=== PATIENT | female | born 1980 | race American Indian/Alaskan Native ===

== ENCOUNTER 2016-07-30 16:57 | Emergency (ER) | payer OTHER ==
--- NOTE | 2016-07-30 19:39 | Emergency Department Report ---
Chief Complaint: Headache Stated Complaint: MOUTH PAIN/HEADACHE/BLURRED VISION/PAIN IN RT EAR Time Seen by Provider: 07/30/16 19:34 - HPI History of Present Illness: 35-year-old female comes in for complaint of headache right oral pain headache blurred vision and dizziness 3 days. - Exam Vital Signs: Vital Signs 07/30/16 17:22 Temperature 98.2 F Pulse Rate 88 Respiratory 20 Rate Blood Pressure 122/95 O2 Sat by Pulse 100 Oximetry Physical Exam: Is alert and oriented 3 neuro is intact tongue protrusion intact deviation to the right and left tongue intact Romberg negative or normal, [id number] intact further no shoulders intact gag reflex intact strength equal 4-5 MSE screening note: Focused history and physical exam performed. Due to findings the following was ordered: CBCs BNP urine test ordered patient to be evaluated in the main ER ED Disposition for MSE Condition: Stable
[2016-07-30 20:36] LABS: BUN/Creatinine Ratio 15.71; Blood Urea Nitrogen 11 mg/dL (7-17); Calcium 8.7 mg/dL (8.4-10.2); Carbon Dioxide 28 mmol/L (22-30); Chloride 102.3 mmol/L (98-107); Glucose 72 mg/dL (65-100); Potassium 4.3 mmol/L (3.6-5.0); Sodium 141 mmol/L (137-145)
[2016-07-30 20:39] LABS: Anion Gap 15 mmol/L
[2016-07-30 20:45] LABS: Hematocrit 38.1 % (30.3-42.9); Hemoglobin 12.8 gm/dl (10.1-14.3); Mean Corpuscular HGB Conc 34 % (30-34); Mean Corpuscular Hemoglobin 30 pg (28-32); Mean Corpuscular Volume 88 fl (79-97); Platelet Count 241 K/mm3 (140-440); Red Blood Count 4.34 M/mm3 (3.65-5.03); Red Cell Distribution Width 15.9 % (13.2-15.2); White Blood Count 6.8 K/mm3 (4.5-11.0)
[2016-07-30 21:31] LABS: Eosinophils % (Auto) 8.4 % (0.0-4.3)
[2016-07-30 23:07] LABS: Basophils % (Manual) 0 % (0.0-1.8); Blastocytes % (Manual) 0 %; RBC Morphology Normal
[2016-07-30 23:08] LABS: Diff Status Complete; Platelet Estimate Consistent w Auto
--- NOTE | 2016-07-31 09:00 | Emergency Department Report ---
ED Head Trauma HPI - General Chief complaint: Headache Stated complaint: MOUTH PAIN/HEADACHE/BLURRED VISION/PAIN IN RT EAR Time Seen by Provider: 07/30/16 19:34 Source: patient Mode of arrival: Ambulatory Limitations: No Limitations - Related Data Home Medications Medication Instructions Recorded Confirmed Last Taken No Known Home Medications [No 07/31/16 07/31/16 Unknown Reported Home Medications] Allergies/Adverse reactions: Allergies Allergy/AdvReac Type Severity Reaction Status Date / Time promethazine HCl Allergy Vomiting Verified 06/29/15 23:28 [From Phenergan] ED Review of Systems ROS: Stated complaint: MOUTH PAIN/HEADACHE/BLURRED VISION/PAIN IN RT EAR Other details as noted in HPI ED Past Medical Hx - Past Medical History Previous Medical History?: Yes Hx Asthma: Yes - Surgical History Past Surgical History?: Yes Additional Surgical History: d+c. Fibroid tumor removed. - Social History Smoking Status: Never Smoker Substance Use Type: Non Opiate Pain, Prescribed - Medications Home Medications: Home Medications Medication Instructions Recorded Confirmed Last Taken Type No Known Home Medications [No 07/31/16 07/31/16 Unknown History Reported Home Medications] ED Physical Exam - General Limitations: No Limitations ED Course Vital Signs 07/30/16 07/31/16 07/31/16 17:22 02:45 08:49 Temperature 98.2 F 98.0 F 98.1 F Pulse Rate 88 76 88 Respiratory 20 20 16 Rate Blood Pressure 122/95 Blood Pressure 147/104 133/82 [Right] O2 Sat by Pulse 100 100 99 Oximetry - Lab Data Result diagrams: 07/30/16 20:05 07/30/16 20:05 Lab Results 07/30/16 07/30/16 07/31/16 Range/Units 20:05 20:05 02:06 WBC 6.8 (4.5-11.0) K/mm3 RBC 4.34 (3.65-5.03) M/mm3 Hgb 12.8 (10.1-14.3) gm/dl Hct 38.1 (30.3-42.9) % MCV 88 (79-97) fl MCH 30 (28-32) pg MCHC 34 (30-34) % RDW 15.9 H (13.2-15.2) % Plt Count 241 (140-440) K/mm3 Lymph % (Auto) 37.0 H (13.4-35.0) % [place] % (Auto) 10.1 H (0.0-7.3) % Eos % (Auto) 8.4 H (0.0-4.3) % Baso % (Auto) 1.0 (0.0-1.8) % Lymph # 2.7 (1.2-5.4) K/mm3 [place] # 0.7 (0.0-0.8) K/mm3 Eos # 0.6 H (0.0-0.4) K/mm3 Baso # 0.1 (0.0-0.1) K/mm3 Add Manual Diff Complete Total Counted 100 Seg Neutrophils % 43.5 (40.0-70.0) % Seg Neuts % (Manual) 44.0 (40.0-70.0) % Band Neutrophils % 0 % Lymphocytes % (Manual) 42.0 H (13.4-35.0) % Reactive Lymphs % (Man) 0 % Monocytes % (Manual) 6.0 (0.0-7.3) % Eosinophils % (Manual) 8.0 H (0.0-4.3) % Basophils % (Manual) 0 (0.0-1.8) % Metamyelocytes % 0 % Myelocytes % 0 % Promyelocytes % 0 % Blast Cells % 0 % Nucleated RBC % Not Reportable Seg Neutrophils # 3.1 (1.8-7.7) K/mm3 Seg Neutrophils # Man 3.0 (1.8-7.7) K/mm3 Band Neutrophils # 0.0 K/mm3 Lymphocytes # (Manual) 2.9 (1.2-5.4) K/mm3 Abs React Lymphs (Man) 0.0 K/mm3 Monocytes # (Manual) 0.4 (0.0-0.8) K/mm3 Eosinophils # (Manual) 0.5 H (0.0-0.4) K/mm3 Basophils # (Manual) 0.0 (0.0-0.1) K/mm3 Metamyelocytes # 0.0 K/mm3 Myelocytes # 0.0 K/mm3 Promyelocytes # 0.0 K/mm3 Blast Cells # 0.0 K/mm3 WBC Morphology Not Reportable Hypersegmented Neuts Not Reportable Hyposegmented Neuts Not Reportable Hypogranular Neuts Not Reportable Smudge Cells Not Reportable Toxic Granulation Not Reportable Toxic Vacuolation Not Reportable Dohle Bodies Not Reportable Pelger-Huet Anomaly Not Reportable Evan Rods Not Reportable Platelet Estimate Consistent w auto Clumped Platelets Not Reportable Plt Clumps, EDTA Not Reportable Large Platelets Not Reportable Giant Platelets Not Reportable Platelet Satelliting Not Reportable Plt Morphology Comment Not Reportable RBC Morphology Normal Dimorphic RBCs Not Reportable Polychromasia Not Reportable Hypochromasia Not Reportable Poikilocytosis Not Reportable Anisocytosis Not Reportable Microcytosis Not Reportable Macrocytosis Not Reportable Spherocytes Not Reportable Pappenheimer Bodies Not Reportable Sickle Cells Not Reportable Target Cells Not Reportable Tear Drop Cells Not Reportable Ovalocytes Not Reportable Helmet Cells Not Reportable Almendarez-[place] Bodies Not Reportable [place] Rings Not Reportable Eileen Cells Not Reportable Bite Cells Not Reportable Crenated Cell Not Reportable Elliptocytes Not Reportable Acanthocytes (Spur) Not Reportable Rouleaux Not Reportable Hemoglobin C Crystals Not Reportable Schistocytes Not Reportable Malaria parasites Not Reportable Jace Bodies Not Reportable Hem Pathologist Commnt No Sodium 141 (137-145) mmol/L Potassium 4.3 (3.6-5.0) mmol/L Chloride 102.3 (98-107) mmol/L Carbon Dioxide 28 (22-30) mmol/L Anion Gap 15 mmol/L BUN 11 (7-17) mg/dL Creatinine 0.7 (0.7-1.2) mg/dL Estimated GFR > 60 ml/min BUN/Creatinine Ratio 15.71 % Glucose 72 (65-100) mg/dL Calcium 8.7 (8.4-10.2) mg/dL Urine HCG, Qual Negative (Negative) Critical care attestation.: If time is entered above; I have spent that time in minutes in the direct care of this critically ill patient, excluding procedure time. ED Disposition Condition: Stable
--- NOTE | 2016-07-31 09:56 | Emergency Department Report ---
ED Headache HPI - General Chief Complaint: Headache Stated Complaint: MOUTH PAIN/HEADACHE/BLURRED VISION/PAIN IN RT EAR Time Seen by Provider: 07/30/16 19:34 Source: patient - History of Present Illness Initial Comments: States that she's had a moderate right-sided headache for more than a week. Sometimes she has spots and sometimes nausea. She's had no scintillations no acute change in vision. She's had many similar headaches in the past. She was seen here for headaches at least twice. Her last CT in April 2016 was normal. Oddly she has never followed up with a neurologist through her [facility] plan. Timing/Duration: 1 week Quality: moderate Head Injury Location: frontal, temporal, occipital Recent Head Trauma: frequent headaches, chronic headaches (anxiety any cranial) Associated Symptoms: denies symptoms, other (some spots right visual field scintillations no visual loss) Allergies/Adverse Reactions: Allergies promethazine HCl [From Phenergan] Allergy (Verified 06/29/15 23:28) Vomiting Home Medications: Ambulatory Orders Butalb/Acetaminophen/Caffeine [Fioricet 50-300-40 mg CAP] 1 cap PO Q6HR PRN #20 cap 07/31/16 ED Review of Systems ROS: Stated complaint: MOUTH PAIN/HEADACHE/BLURRED VISION/PAIN IN RT EAR Other details as noted in HPI Constitutional: denies: chills, fever Eyes: denies: eye pain, eye discharge, vision change ENT: other (vague mouth pain at triage. Did not mention this to me.). denies: ear pain, throat pain Respiratory: denies: cough, shortness of breath, wheezing Cardiovascular: denies: chest pain, palpitations Endocrine: no symptoms reported Gastrointestinal: denies: abdominal pain, nausea, diarrhea Genitourinary: denies: urgency, dysuria, discharge Musculoskeletal: denies: back pain, joint swelling, arthralgia Skin: denies: rash, lesions Neurological: headache. denies: weakness, paresthesias Psychiatric: denies: anxiety, depression Hematological/Lymphatic: denies: easy bleeding, easy bruising ED Past Medical Hx - Past Medical History Previous Medical History?: Yes Hx Asthma: Yes - Surgical History Past Surgical History?: Yes Additional Surgical History: d+c. Fibroid tumor removed. - Social History Smoking Status: Never Smoker Substance Use Type: Non Opiate Pain (treated by nursing I am not certain this is accurate), Prescribed - Medications Home Medications: Home Medications Medication Instructions Recorded Confirmed Last Taken Type Butalb/Acetaminophen/Caffeine 1 cap PO Q6HR PRN #20 cap 07/31/16 Unknown Rx [Fioricet 50-300-40 mg CAP] ED Physical Exam - General Limitations: No Limitations General appearance: alert, in no apparent distress - Head Head exam: Present: atraumatic, normocephalic - Eye Eye exam: Present: normal appearance, PERRL, EOMI. Absent: scleral icterus, conjunctival injection, nystagmus, periorbital swelling, periorbital tenderness - ENT ENT exam: Present: mucous membranes moist, other (inspected by nursing no findings noted) - Neck Neck exam: Present: normal inspection - Respiratory Respiratory exam: Present: normal lung sounds bilaterally. Absent: respiratory distress - Cardiovascular Cardiovascular Exam: Present: regular rate, normal rhythm. Absent: systolic murmur, diastolic murmur, rubs, gallop - GI/Abdominal GI/Abdominal exam: Present: soft, normal bowel sounds. Absent: distended, tenderness, guarding, rebound - Extremities Exam Extremities exam: Present: normal inspection - Back Exam Back exam: Present: normal inspection - Neurological Exam Neurological exam: Present: alert, oriented X3, CN II-XII intact, other (feels were equal by confrontation. Cerebellar testing was normal. There is no abnormality of gait noted.). Absent: motor sensory deficit - Psychiatric Psychiatric exam: Present: normal affect, normal mood - Skin Skin exam: Present: warm, dry, intact, normal color. Absent: rash ED Course Vital Signs 07/30/16 07/31/16 07/31/16 17:22 02:45 08:49 Temperature 98.2 F 98.0 F 98.1 F Pulse Rate 88 76 88 Respiratory 20 20 16 Rate Blood Pressure 122/95 Blood Pressure 147/104 133/82 [Right] O2 Sat by Pulse 100 100 99 Oximetry - Reevaluation(s) Reevaluation #1: Is given analgesia. She is encouraged to follow-up with her [facility] and a [facility]. 07/31/16 10:07 ED Medical Decision Making - Lab Data Result diagrams: 07/30/16 20:05 07/30/16 20:05 Laboratory Results - last 24 hr 07/30/16 07/30/16 07/31/16 20:05 20:05 02:06 WBC 6.8 RBC 4.34 Hgb 12.8 Hct 38.1 MCV 88 MCH 30 MCHC 34 RDW 15.9 H Plt Count 241 Lymph % (Auto) 37.0 H [place] % (Auto) 10.1 H Eos % (Auto) 8.4 H Baso % (Auto) 1.0 Lymph # 2.7 [place] # 0.7 Eos # 0.6 H Baso # 0.1 Add Manual Diff Complete Total Counted 100 Seg Neutrophils % 43.5 Seg Neuts % (Manual) 44.0 Band Neutrophils % 0 Lymphocytes % (Manual) 42.0 H Reactive Lymphs % (Man) 0 Monocytes % (Manual) 6.0 Eosinophils % (Manual) 8.0 H Basophils % (Manual) 0 Metamyelocytes % 0 Myelocytes % 0 Promyelocytes % 0 Blast Cells % 0 Nucleated RBC % Not Reportable Seg Neutrophils # 3.1 Seg Neutrophils # Man 3.0 Band Neutrophils # 0.0 Lymphocytes # (Manual) 2.9 Abs React Lymphs (Man) 0.0 Monocytes # (Manual) 0.4 Eosinophils # (Manual) 0.5 H Basophils # (Manual) 0.0 Metamyelocytes # 0.0 Myelocytes # 0.0 Promyelocytes # 0.0 Blast Cells # 0.0 WBC Morphology Not Reportable Hypersegmented Neuts Not Reportable Hyposegmented Neuts Not Reportable Hypogranular Neuts Not Reportable Smudge Cells Not Reportable Toxic Granulation Not Reportable Toxic Vacuolation Not Reportable Dohle Bodies Not Reportable Pelger-Huet Anomaly Not Reportable Evan Rods Not Reportable Platelet Estimate Consistent w auto Clumped Platelets Not Reportable Plt Clumps, EDTA Not Reportable Large Platelets Not Reportable Giant Platelets Not Reportable Platelet Satelliting Not Reportable Plt Morphology Comment Not Reportable RBC Morphology Normal Dimorphic RBCs Not Reportable Polychromasia Not Reportable Hypochromasia Not Reportable Poikilocytosis Not Reportable Anisocytosis Not Reportable Microcytosis Not Reportable Macrocytosis Not Reportable Spherocytes Not Reportable Pappenheimer Bodies Not Reportable Sickle Cells Not Reportable Target Cells Not Reportable Tear Drop Cells Not Reportable Ovalocytes Not Reportable Helmet Cells Not Reportable Almendarez-[place] Bodies Not Reportable [place] Rings Not Reportable Eileen Cells Not Reportable Bite Cells Not Reportable Crenated Cell Not Reportable Elliptocytes Not Reportable Acanthocytes (Spur) Not Reportable Rouleaux Not Reportable Hemoglobin C Crystals Not Reportable Schistocytes Not Reportable Malaria parasites Not Reportable Jace Bodies Not Reportable Hem Pathologist Commnt No Sodium 141 Potassium 4.3 Chloride 102.3 Carbon Dioxide 28 Anion Gap 15 BUN 11 Creatinine 0.7 Estimated GFR > 60 BUN/Creatinine Ratio 15.71 Glucose 72 Calcium 8.7 Urine HCG, Qual Negative Critical care attestation.: If time is entered above; I have spent that time in minutes in the direct care of this critically ill patient, excluding procedure time. ED Disposition Clinical Impression: Cephalalgia Qualifiers: Headache type: unspecified Headache chronicity pattern: acute headache Intractability: not intractable Qualified Code(s): R51 - Headache Disposition: DISCHARGED TO HOME OR SELFCARE Is pt being admited?: No Does the pt Need Aspirin: No Condition: Stable Instructions: Acute Headache (ED), Migraine Headache (ED) Additional Instructions: I would certainly recommend evaluation by a neurologist. They may recommend prophylactic medicine or specific treatment for migraine if they believe this is a migraine type pattern. Return any acute change or problem. Prescriptions: Butalb/Acetaminophen/Caffeine [Fioricet 50-300-40 mg CAP] 1 cap PO Q6HR PRN #20 cap PRN Reason: Headache Referrals: J[facility] [Other] - 24 Hours Time of Disposition: 10:11
[2016-07-31] MEDS ORDERED: MORPHINE IM ONE (10:11)
[2016-07-31] MEDS ORDERED: ZOFRAN ODT PO ONE (10:12)
[2016-07-31 10:57] VITALS: BP 139/81
== END 2016-07-31 10:57 | disposition home or self-care (01) ==
LOC: ED 16:57
DX: R51 Headache (principal); G89.29 Other chronic pain; R11.0 Nausea; J45.909 Unspecified asthma, uncomplicated; Z88.8 Allergy status to other drugs, medicaments and biological substances
CPT/HCPCS: 36415; 80048; 81025; 85007; 85025; 96372; 99283; J2270; Q0162

== ENCOUNTER 2017-01-23 02:38 | Emergency (ER) | payer OTHER ==
[2017-01-23] MEDS ORDERED: TYLENOL PO ONE (02:53)
[2017-01-23] MEDS ORDERED: NORCO 5/325 PO ONE (07:40)
--- NOTE | 2017-01-23 07:40 | Emergency Department Report ---
ED Lower Extremity HPI - General Chief Complaint: Extremity Injury, Lower Stated Complaint: RT KNEE PAIN Time Seen by Provider: 01/23/17 07:20 Source: patient, family Mode of arrival: Ambulatory Limitations: No Limitations - History of Present Illness Initial Comments: Patient here complaining of injury to right knee. She states she was then 6 and she fell and hit her knee at about 1 AM in the morning knee pain is 8 out of 10 and feels achy. Denies any previous injury to knee. Denies any numbness or tingling to extremities. Denies any head injury or back injury Complaint: knee injury (right knee) -: This morning Injury: Knee: Right (pain while Dancing) Type of Injury: other (twisted right knee while [place]) Place: street/outdoors Severity: severe Severity scale (0 -10): 8 Improves With: nothing Context: other (dancing) Associated Symptoms: able to partially bear weight, ambulatory. denies: snap/ pop sensation, swelling, numbness, tingling, unable to bear weight Treatments Prior to Arrival: cold therapy - Related Data Previous Rx's Medication Instructions Recorded Last Taken Type Butalb/Acetaminophen/Caffeine 1 cap PO Q6HR PRN #20 cap 07/31/16 Unknown Rx [Fioricet 50-300-40 mg CAP] traMADol [Ultram] 50 mg PO Q6HR PRN #20 tablet 01/23/17 Unknown Rx Allergies Allergy/AdvReac Type Severity Reaction Status Date / Time promethazine HCl Allergy Vomiting Verified 06/29/15 23:28 [From Phenergan] ED Review of Systems ROS: Stated complaint: RT KNEE PAIN Other details as noted in HPI Comment: All other systems reviewed and negative Constitutional: denies: chills, fever Respiratory: no symptoms reported Cardiovascular: denies: chest pain, palpitations, edema, syncope Gastrointestinal: denies: abdominal pain, nausea, vomiting, diarrhea Musculoskeletal: arthralgia. denies: back pain, joint swelling, myalgia Skin: denies: rash Neurological: denies: headache, weakness, numbness, paresthesias, confusion, abnormal gait, vertigo ED Past Medical Hx - Past Medical History Previous Medical History?: Yes Hx Asthma: Yes - Surgical History Past Surgical History?: Yes Additional Surgical History: d+c. Fibroid tumor removed. - Family History Family history: hypertension - Social History Smoking Status: Never Smoker Substance Use Type: None - Medications Home Medications: Home Medications Medication Instructions Recorded Confirmed Last Taken Type Butalb/Acetaminophen/Caffeine 1 cap PO Q6HR PRN #20 cap 07/31/16 Unknown Rx [Fioricet 50-300-40 mg CAP] traMADol [Ultram] 50 mg PO Q6HR PRN #20 tablet 01/23/17 Unknown Rx ED Physical Exam - General Limitations: No Limitations General appearance: alert, in no apparent distress - Head Head exam: Present: atraumatic, normocephalic, normal inspection - Expanded Head Exam Expanded Head exam: Absent: laceration, abrasion, contusion, hematoma, racoon eyes, carrasco's sign, general tenderness, tenderness of temporal artery, CSF rhinorrhea , CSF otorrhea - Eye Eye exam: Present: normal appearance, PERRL, EOMI. Absent: periorbital swelling , periorbital tenderness Pupils: Present: normal accommodation - ENT ENT exam: Present: normal exam, normal orophraynx - Neck Neck exam: Present: normal inspection, full ROM. Absent: tenderness, meningismus, lymphadenopathy - Respiratory Respiratory exam: Present: normal lung sounds bilaterally. Absent: respiratory distress, chest wall tenderness - Cardiovascular Cardiovascular Exam: Present: regular rate, normal rhythm, normal heart sounds - GI/Abdominal GI/Abdominal exam: Present: soft, normal bowel sounds. Absent: distended, tenderness, guarding, rebound, rigid - Extremities Exam Extremities exam: Present: normal inspection, full ROM - Expanded Lower Extremity Exam Right Hip exam: Present: normal inspection, full ROM, pelvic stability. Absent: tenderness, swelling, abrasion, laceration, ecchymosis, deformity, crepidus, dislocation, erythema, external rotation, internal rotation, shortening Upper Leg exam: Present: normal inspection, full ROM. Absent: tenderness, swelling, abrasion, laceration, ecchymosis, deformity, crepidus, dislocation, erythema Knee exam: Present: normal inspection, full ROM, tenderness, swelling (mild swelling to anterior knee), full knee extension. Absent: abrasion, laceration , ecchymosis, deformity, crepidus, dislocation, erythema, effusion, pain w/ pronation/supination, posterior draw sign, pain/laxity with valgus, pain/laxity with varus Lower Leg exam: Present: normal inspection, full ROM. Absent: tenderness, swelling, abrasion, laceration, ecchymosis, deformity, crepidus, dislocation, erythema, palpable cord, Tammie's sign Ankle exam: Present: normal inspection, full ROM. Absent: tenderness, swelling , abrasion, laceration, ecchymosis, deformity, crepidus, dislocation, erythema, anterior draw sign Foot/Toe exam: Present: normal inspection, full ROM. Absent: tenderness, swelling, abrasion, laceration, ecchymosis, deformity, crepidus, dislocation, erythema, amputation, puncture wound, foreign body, calcaneal tenderness, tenderness at base of 5th metatarsal, nail avulsion, subungual hematoma Neuro vascular tendon exam: Present: no vascular compromise. Absent: pulse deficit, abnormal cap refill, motor deficit, sensory deficit, tendon deficit, extremity cold to touch, pallor, abnormal 2-point discrimination, decreased fine /light touch, foot drop, peroneal nerve deficit, significant pain with passive ROM of distal joint Gait: Positive: observed and limited by pain - Back Exam Back exam: Present: normal inspection, full ROM. Absent: tenderness, CVA tenderness (R), CVA tenderness (L), muscle spasm, paraspinal tenderness, vertebral tenderness, rash noted - Neurological Exam Neurological exam: Present: alert, oriented X3, normal gait, reflexes normal. Absent: motor sensory deficit - Psychiatric Psychiatric exam: Present: normal affect, normal mood - Skin Skin exam: Present: warm, dry, intact, normal color. Absent: rash ED Course Vital Signs 01/23/17 01/23/17 01/23/17 02:47 03:56 06:42 Temperature 98.4 F Pulse Rate 82 86 Respiratory 16 16 16 Rate Blood Pressure 141/93 141/95 O2 Sat by Pulse 96 99 Oximetry 01/23/17 08:01 Temperature Pulse Rate Respiratory 16 Rate Blood Pressure O2 Sat by Pulse Oximetry - Reevaluation(s) Reevaluation #1: 01/23/17 08:38 Patient given [place] 5/325 2 tablets in emergency room to manage knee pain. He was also given Tylenol 650 mg by mouth in triage area. 01/23/17 08:38 - Orthopedic Splinting/Casting Injury #1 Side: right Lower Extremity Injury Location: knee Lower Extremity Immobilizer: Jorge wrap ED Lower Extremity MDM - Radiology Data Radiology results: report reviewed Right knee x-ray revealed no acute fracture or dislocation. - Medical Decision Making ED course: She is status post knee injury with complain of right knee pain after dancing. She received [place] 5/325 2 tablets in emergency room. Prior to [place] she received Tylenol 650 mg in triage area. Patient is stable patient received Jorge wrap to her right knee and to follow-up with orthopedic if her knee pain continues. Discharged home with prescription for Ultram. Critical care attestation.: If time is entered above; I have spent that time in minutes in the direct care of this critically ill patient, excluding procedure time. ED Disposition Clinical Impression: Arthralgia of right knee Strain of right knee Qualifiers: Encounter type: initial encounter Qualified Code(s): S86.911A - Strain of unspecified muscle(s) and tendon(s) at lower leg level, right leg, initial encounter Disposition: TO HOME OR SELFCARE Is pt being admited?: No Does the pt Need Aspirin: No Condition: Stable Instructions: Arthralgia (ED), Knee Pain (ED), Knee Exercises (GEN) Additional Instructions: These follow-up with orthopedic doctor as instructed Take Ultram for pain Rest, ice, compress and elevate affected area. Prescriptions: traMADol [Ultram] 50 mg PO Q6HR PRN #20 tablet PRN Reason: Pain Referrals: SORIN TATUM MD [Staff Physician] - 3-5 Days Forms: Work/School Release Form(ED)
--- NOTE | 2017-01-23 07:58 | XRay Report ---
FINAL REPORT EXAM: XR KNEE 3V RT HISTORY: pt injured right knee TECHNIQUE: Two views of the right knee PRIORS: None. FINDINGS: There is no evidence of acute fracture. There is no evidence of joint dislocation. There is no evidence of joint effusion. There is no significant focal osseous lesions seen. IMPRESSION: There is no acute abnormality identified.
[2017-01-23 09:23] VITALS: BP 122/82
== END 2017-01-23 09:24 | disposition home or self-care (01) ==
LOC: ED 02:38
DX: S86.911A Strain of unspecified muscle(s) and tendon(s) at lower leg level, right leg, initial encounter (principal); J45.909 Unspecified asthma, uncomplicated; Z88.8 Allergy status to other drugs, medicaments and biological substances; W01.198A Fall on same level from slipping, tripping and stumbling with subsequent striking against other object, initial encounter; Y93.41 Activity, dancing; Y92.89 Other specified places as the place of occurrence of the external cause; Y99.8 Other external cause status

== ENCOUNTER 2017-07-03 21:29 | Emergency (ER) | payer OTHER ==
[2017-07-03 22:15] LABS: Basophils % (Auto) 0.6 % (0.0-1.8); Eosinophils % (Auto) 6.7 % (0.0-4.3); Hematocrit 38.8 % (30.3-42.9); Hemoglobin 13.1 gm/dl (10.1-14.3); Mean Corpuscular HGB Conc 34 % (30-34); Mean Corpuscular Hemoglobin 30 pg (28-32); Mean Corpuscular Volume 88 fl (79-97); Platelet Count 276 K/mm3 (140-440); Red Blood Count 4.41 M/mm3 (3.65-5.03); Red Cell Distribution Width 15.9 % (13.2-15.2); White Blood Count 7.4 K/mm3 (4.5-11.0)
[2017-07-03 22:25] LABS: Anion Gap 16 mmol/L; BUN/Creatinine Ratio 20; Blood Urea Nitrogen 12 mg/dL (7-17); Calcium 8.7 mg/dL (8.4-10.2); Carbon Dioxide 25 mmol/L (22-30); Chloride 100.4 mmol/L (98-107); Glucose 102 mg/dL (65-100); Potassium 3.1 mmol/L (3.6-5.0); Sodium 138 mmol/L (137-145)
[2017-07-03] MEDS ORDERED: K-DUR PO ONE (22:35)
[2017-07-03] MEDS ORDERED: MORPHINE IV ONE (22:39)
[2017-07-03] MEDS ORDERED: NACL 0.9% 500 ML 500 ML IV ONE (22:39)
--- NOTE | 2017-07-03 23:04 | Emergency Department Report ---
HPI - General Chief Complaint: Headache Time Seen by Provider: 07/03/17 22:34 - HPI HPI: This is a 36 year-old female presents to the emergency department, dropped off by a friend, with a complaint of a right-sided headache , blurry vision and dizziness has been going on since last night. She tried some Aleve for her discomfort without any relief. She denies any past medical history. She denies any slurred speech, problems with movement or ambulation, chest pain, palpitations or any other neurological deficits. No recent travel or sick contacts at home. She has a primary care physician through [place]. The headache is a sharp pain and travels from that right side to behind her eyes. ED Past Medical Hx - Past Medical History Previous Medical History?: No Hx Asthma: Yes - Surgical History Past Surgical History?: Yes Additional Surgical History: d+c. Fibroid tumor removed. - Social History Smoking Status: Never Smoker - Medications Home Medications: Home Medications Medication Instructions Recorded Confirmed Last Taken Type Butalb/Acetaminophen/Caffeine 1 cap PO Q6HR PRN #20 cap 07/31/16 Unknown Rx [Fioricet 50-300-40 mg CAP] traMADol [Ultram] 50 mg PO Q6HR PRN #20 tablet 01/23/17 Unknown Rx ED Review of Systems ROS: Stated complaint: DIZZINESS,HEADACHE Other details as noted in HPI Comment: All other systems reviewed and negative Constitutional: denies: chills, fever Eyes: vision change. denies: eye pain, eye discharge ENT: denies: ear pain, throat pain Respiratory: denies: cough, shortness of breath, wheezing Cardiovascular: denies: chest pain, palpitations Gastrointestinal: denies: abdominal pain, nausea, diarrhea Genitourinary: denies: urgency, dysuria, discharge Musculoskeletal: denies: back pain, joint swelling, arthralgia Skin: denies: rash, lesions Neurological: headache. denies: numbness, paresthesias Physical Exam - Physical Exam Vital Signs: Vital Signs 07/03/17 07/03/17 21:38 22:34 Temperature 98.2 F 98.3 F Pulse Rate 76 85 Respiratory 20 16 Rate Blood Pressure 135/96 Blood Pressure 143/92 [Left] O2 Sat by Pulse 99 98 Oximetry Physical Exam: GENERAL: The patient is well-developed well-nourished. HENT: Normocephalic. Atraumatic. Patient has moist mucous membranes. EYES: Extraocular motions are intact. Pupils equal reactive to light bilaterally. No nystagmus. NECK: Supple. Trachea is midline. CHEST/LUNGS: Clear to auscultation. There is no respiratory distress noted. HEART/CARDIOVASCULAR: Regular. There is no tachycardia. There is no murmur. ABDOMEN: Abdomen is soft, nontender. Patient has normal bowel sounds. There is no abdominal distention. Obese habitus. SKIN: Skin is warm and dry. NEURO: The patient is awake, alert, and oriented. The patient is cooperative. The patient has no focal neurologic deficits. The patient has normal speech. No pronator drift. No dysmetria. No facial asymmetry. MUSCULOSKELETAL: There is no tenderness or deformity. There is no limitation range of motion. There is no evidence of acute injury. ED Course Vital Signs 07/03/17 07/03/17 21:38 22:34 Temperature 98.2 F 98.3 F Pulse Rate 76 85 Respiratory 20 16 Rate Blood Pressure 135/96 Blood Pressure 143/92 [Left] O2 Sat by Pulse 99 98 Oximetry ED Medical Decision Making - Lab Data Result diagrams: 07/03/17 22:05 07/03/17 22:05 - EKG Data -: EKG Interpreted by Ia EKG shows normal: sinus rhythm, axis, intervals, QRS complexes, ST-T waves Rate: normal - EKG Data When compared to previous EKG there are: previous EKG unavailable Interpretation: normal EKG - Radiology Data Radiology results: report reviewed EXAM: CT HEAD/BRAIN WO CON HISTORY: Headache TECHNIQUE: CT head without contrast PRIORS: None. FINDINGS: No acute intra-axial or extra-axial hemorrhage is identified. There is no evidence of midline shift or mass effect. The ventricles and sulci are within normal limits. Grijalva-white matter differentiation is intact. No acute parenchymal abnormalities seen. Bony calvarium is grossly intact. Visualized portions of the mastoids and paranasal sinuses are unremarkable. IMPRESSION: Negative CT head Transcribed By: ALEAH Dictated By: FERNANDO ORR MD Electronically Authenticated By: FERNANDO ORR MD Signed Date/Time: 07/03/171901 - Medical Decision Making Patient presents with a one-day history of a headache. She complained of some blurry vision but no other obvious neurological deficits. On physical exam she does not have any focal, motor or sensory deficits in her cranial nerves are intact. CT of the head does not show any bleed, shift, mass or any acute process. Vital signs stable throughout her ED course. Labs are unremarkable. EKG does not show any signs of ST elevation [place], ischemia or dysrhythmia. She was given some pain medication and antiemetics and after 2 rounds of this she eventually is sleeping and resting comfortably. She is easily arousable and says that she has greatly improved. The patient has been seen here multiple times for headaches and despite having good [place] insurance, for some reason, does not follow up with neurology despite previous encouragement to do so. She was once again told that she could have some underlying undiagnosed migraines and should follow up neurology. Vital signs stable throughout ED course. At this point she appears safe for discharge home but has been encouraged to return to the ER with any worsening of her symptoms or any acute distress. - Differential Diagnosis migraine headache, cluster headache, brain bleed, dysrhythmia, thyroid dysf Critical Care Time: No Critical care attestation.: If time is entered above; I have spent that time in minutes in the direct care of this critically ill patient, excluding procedure time. ED Disposition Clinical Impression: Dizziness Headache Qualifiers: Headache type: unspecified Headache chronicity pattern: acute headache Intractability: not intractable Qualified Code(s): R51 - Headache Disposition: DC-01 TO HOME OR SELFCARE Is pt being admited?: No Condition: Stable Instructions: Acute Headache (ED) Additional Instructions: Please follow-up with your primary care physician. Please try and get a referral for a [place] neurologist. Return to the emergency Department with any worsening of your symptoms or any acute distress. Referrals: PRIMARY CARE, [Primary Care Provider] - DENISSE Forms: Work/School Release Form(ED) Time of Disposition: 02:58
[2017-07-03 23:10] LABS: Bacteria,Urine 1+ /HPF (Negative); Bilirubin,Urine NEG (Negative); Blood,Urine LG (Negative); Ketones,Urine NEG (Negative); Leukocyte Esterase,Urine NEG (Negative); Mucus,Urine FEW /HPF; Nitrite,Urine NEG (Negative); Protein,Urine <15 mg/dL mg/dL (Negative); Urobilinogen,Urine < 2.0 mg/dL (<2.0)
[2017-07-04] MEDS ORDERED: FIORICET PO ONE (00:29)
[2017-07-04] MEDS ORDERED: REGLAN IV ONE (00:29)
[2017-07-04 03:08] VITALS: BP 119/78
== END 2017-07-04 03:07 | disposition home or self-care (01) ==
LOC: ED 21:29
DX: R42 Dizziness and giddiness (principal); R51 Headache; H53.8 Other visual disturbances
CPT/HCPCS: 36415; 70450; 80048; 81001; 84443; 84484; 84703; 85025; 93005; 93010; 96361; 96374; 96375; 99284; J2270; J2765; J7040

== ENCOUNTER 2017-08-13 15:02 | Emergency (ER) | payer OTHER, MEDICAID ==
[2017-08-13] MEDS ORDERED: ZOFRAN ODT PO ONE (15:14)
[2017-08-13 15:46] LABS: Basophils % (Auto) 0.4 % (0.0-1.8); Eosinophils # (Auto) 0.2 K/mm3 (0.0-0.4); Eosinophils % (Auto) 2.5 % (0.0-4.3); Hematocrit 41.8 % (30.3-42.9); Lymphocytes # (Auto) 1.5 K/mm3 (1.2-5.4); Lymphocytes % (Auto) 22.8 % (13.4-35.0); Mean Corpuscular HGB Conc 33 % (30-34); Mean Corpuscular Hemoglobin 29 pg (28-32); Mean Corpuscular Volume 87 fl (79-97); Monocytes # (Auto) 0.5 K/mm3 (0.0-0.8); Monocytes % (Auto) 7.7 % (0.0-7.3); Platelet Count 296 K/mm3 (140-440); Red Cell Distribution Width 15.8 % (13.2-15.2)
[2017-08-13 16:07] LABS: Alanine Aminotransferase 9 units/L (7-56); Albumin 4.1 g/dL (3.9-5); BUN/Creatinine Ratio 15; Blood Urea Nitrogen 9 mg/dL (7-17); Calcium 8.8 mg/dL (8.4-10.2); Hemolysis Index 3
[2017-08-14 02:13] VITALS: BP 123/91
[2017-08-14 02:47] LABS: Bacteria,Urine 1+ /HPF (Negative); Bilirubin,Urine NEG (Negative); Blood,Urine NEG (Negative); Color,Urine Amber (Yellow); Mucus,Urine 3+ /HPF; Nitrite,Urine NEG (Negative)
[2017-08-14] MEDS ORDERED: MACROBID PO ONE (06:40)
[2017-08-14] MEDS ORDERED: REGLAN IV ONE (06:47)
[2017-08-14] MEDS ORDERED: NACL 0.9% 1000 ML 1,000 ML IV ONE ×2 (06:47→11:17)
--- NOTE | 2017-08-14 06:52 | Emergency Department Report ---
HPI - General Chief Complaint: Nausea/Vomiting/Diarrhea Time Seen by Provider: 08/14/17 06:39 - HPI HPI: This is a 36-year-old Maribel female presents to the emergency department with complaint of a 4 day history of nausea, vomiting and some abdominal discomfort, while about 5 weeks . The patient says that she has a history of hyperemesis gravidarum and during her last she was admitted for almost her entire first trimester. Patient says that she does not currently have an acute CAMPAIGN ADVISOR. She otherwise has a history of previous D&C, fibroid tumor removal and has a history of asthma. She is unable to keep down food or liquid and also has not taken anything for her symptoms. No recent travel or sick contacts at home. She denies any vaginal bleeding, vaginal discharge, diarrhea or constipation, fever, dysuria. She is a [facility] patient. ED Past Medical Hx - Past Medical History Hx Asthma: Yes - Surgical History Additional Surgical History: d+c. Fibroid tumor removed. - Social History Smoking Status: Never Smoker Substance Use Type: None - Medications Home Medications: Home Medications Medication Instructions Recorded Confirmed Last Taken Type Butalb/Acetaminophen/Caffeine 1 cap PO Q6HR PRN #20 cap 07/31/16 Unknown Rx [Fioricet 50-300-40 mg CAP] traMADol [Ultram] 50 mg PO Q6HR PRN #20 tablet 01/23/17 Unknown Rx Ondansetron [Zofran Odt] 4 mg PO Q8HR PRN #12 tab.rapdis 08/14/17 Unknown Rx Vit Calc,Iron,Folic 1 each PO QDAY #30 tablet 08/14/17 Unknown Rx [ Vitamins] ED Review of Systems ROS: Stated complaint: VOMITING BLOOD Other details as noted in HPI Comment: All other systems reviewed and negative Constitutional: denies: chills, fever Eyes: denies: eye pain, eye discharge, vision change ENT: denies: ear pain, throat pain Respiratory: denies: cough, shortness of breath, wheezing Cardiovascular: denies: chest pain, palpitations Gastrointestinal: abdominal pain, nausea, vomiting Genitourinary: denies: urgency, dysuria, discharge Musculoskeletal: denies: back pain, joint swelling, arthralgia Skin: denies: rash, lesions Neurological: denies: headache, weakness, paresthesias Physical Exam - Physical Exam Vital Signs: Vital Signs 08/13/17 08/14/17 08/14/17 15:10 02:12 04:23 Temperature 98.6 F 97.9 F Pulse Rate 100 H 94 H Respiratory 18 16 18 Rate Blood Pressure 115/83 123/91 O2 Sat by Pulse 100 100 Oximetry Physical Exam: GENERAL: The patient is well-developed well-nourished. HENT: Normocephalic. Atraumatic. Patient has moist mucous membranes. EYES: Extraocular motions are intact. Pupils equal reactive to light bilaterally. NECK: Supple. Trachea is midline. CHEST/LUNGS: Clear to auscultation. There is no respiratory distress noted. HEART/CARDIOVASCULAR: Regular. There is no tachycardia. There is no murmur. ABDOMEN: Abdomen is soft, nontender. Patient has normal bowel sounds. There is no abdominal distention. SKIN: Skin is warm and dry. NEURO: The patient is awake, alert, and oriented. The patient is cooperative. The patient has no focal neurologic deficits. The patient has normal speech. MUSCULOSKELETAL: There is no tenderness or deformity. There is no limitation range of motion. There is no evidence of acute injury. ED Course Vital Signs 08/13/17 08/14/17 08/14/17 15:10 02:12 04:23 Temperature 98.6 F 97.9 F Pulse Rate 100 H 94 H Respiratory 18 16 18 Rate Blood Pressure 115/83 123/91 O2 Sat by Pulse 100 100 Oximetry - Consultations Consultation #1: I spoke to an ST[facility] CH[facility]NEY MASON from [place], Dr. King, who listened to the patient's presentation and ED course and feels that the patient should be tried outpatient first before attempting admission and/or transfer. She recommends Zofran ODT and Phenergan per rectum, however the patient is allergic to Phenergan. She feels that the patient should only need to "nibble and sip" food and water and that they will arrange close follow-up for an old CAMPAIGN ADVISOR service for this patient. 08/14/17 14:57 ED Medical Decision Making - Lab Data Result diagrams: 08/13/17 15:22 08/13/17 15:22 - Radiology Data Radiology results: report reviewed PROCEDURE: US OB TRANSVAGINAL TECHNIQUE: Real-time transvaginal sonography of the uterus, placenta, amniotic fluid, adnexa, and fetus was performed with image documentation. Measurements were obtained to determine age/size. M-mode Doppler was used to document heartbeat. CPT 87394 HISTORY: abd pain, preg COMPARISON: No prior studies are available for comparison. FINDINGS: CRL: 3.6mm, which corresponds to a gestational age of: 6weeks, 0 days. Yolk Sac: Normal. Embryonic Cardiac Activity: 117 beats per minute Gestational Sac: Normal. Right Ovary: There are 2 complex cysts in the right ovary measuring 2.4 centimeters and 2.7 centimeters. These could be hemorrhagic cysts. Left Ovary: Normal. Estimated delivery date: 04/09/2018 Comment: Complete anatomic survey at 18-20 weeks suggested. There are multiple uterine fibroids measuring up to 3.3 centimeters. IMPRESSION: 1. Single living intrauterine gestation at approximately 6 weeks 2. EDC by US 04/09/2018. Transcribed By: CO Dictated By: LUZ JULIEN MD Electronically Authenticated By: LUZ JULIEN MD Signed Date/Time: 08/14/17 0334 - Medical Decision Making Patient presents with a four-day history of nausea, vomiting while . Ultrasound shows live intrauterine at 6 weeks. The patient does have a mild UTI and does have some signs of dehydration. She was given 2 L of IV fluid, Zofran and Reglan. Patient was able to keep down some fluids here in a small quantity. The patient starts spitting into a emesis bag, there've been no signs of any actual vomiting since being in the emergency department. She will have close follow-up through [place]. She has been sent home with Miguel Ángel GUTIERREZ and encouraged to return to the emergency department with any intractable vomiting, development of fever, or any acute distress. I forgot to send the patient home with a prescription for her urinary tract infection. It was printed off and left for the patient at the front desk officer and we will call her to let her know to pick this up. - Differential Diagnosis , hyperemesis gravidarum, food poisoning, miscarriage Critical Care Time: No Critical care attestation.: If time is entered above; I have spent that time in minutes in the direct care of this critically ill patient, excluding procedure time. ED Disposition Clinical Impression: Hyperemesis, Dehydration Qualifiers: Weeks of gestation: less than 8 weeks Qualified Code(s): Z3A.01 - Less than 8 weeks gestation of UTI (urinary tract infection) Qualifiers: Urinary tract infection type: acute cystitis Hematuria presence: without hematuria Qualified Code(s): N30.00 - Acute cystitis without hematuria Disposition: TO HOME OR SELFCARE Is pt being admited?: No Condition: Stable Instructions: (ED), Hyperemesis Gravidarum (ED) Additional Instructions: Please follow up with an STONE CHIMNEY MASON in the next few days. Increase her oral rehydration. Return to the emergency department with any worsening of your symptoms, vaginal bleeding, or any acute distress. Prescriptions: Ondansetron [Zofran Odt] 4 mg PO Q8HR PRN #12 tab.rapdis PRN Reason: Nausea Vit Calc,Iron,Folic [ Vitamins] 1 each PO QDAY #30 tablet Referrals: [facility] [Provider Group] - 3-5 Days [facility] [Provider Group] - 3-5 Days Time of Disposition: 12:48
--- NOTE | 2017-08-14 07:37 | Ultrasound Report ---
FINAL REPORT PROCEDURE: US OB TRANSVAGINAL TECHNIQUE: Real-time transvaginal sonography of the uterus, placenta, amniotic fluid, adnexa, and fetus was performed with image documentation. Measurements were obtained to determine age/size. M-mode Doppler was used to document heartbeat. CPT 50842 HISTORY: abd pain, preg COMPARISON: No prior studies are available for comparison. FINDINGS: CRL: 3.6mm, which corresponds to a gestational age of: 6weeks, 0 days. Yolk Sac: Normal. Embryonic Cardiac Activity: 117 beats per minute Gestational Sac: Normal. Right Ovary: There are 2 complex cysts in the right ovary measuring 2.4 centimeters and 2.7 centimeters. These could be hemorrhagic cysts. Left Ovary: Normal. Estimated delivery date: 04/09/2018 Comment: Complete anatomic survey at 18-20 weeks suggested. There are multiple uterine fibroids measuring up to 3.3 centimeters. IMPRESSION: 1. Single living intrauterine gestation at approximately 6 weeks 2. EDC by US 04/09/2018.
--- NOTE | 2017-08-14 07:47 | Ultrasound Report ---
FINAL REPORT PROCEDURE: US LESS THAN 14 WEEKS TECHNIQUE: Real-time transabdominal sonography of the uterus, placenta, amniotic fluid, adnexa, and fetus was performed with image documentation. Measurements were obtained to determine age/size. M-mode Doppler was used to document heartbeat. HISTORY: abd pain, preg COMPARISON: No prior studies are available for comparison. FINDINGS: CRL: 3.6mm, which corresponds to a gestational age of: 6weeks, 0 days. Yolk Sac: Normal. Embryonic Cardiac Activity: 117 beats per minute Gestational Sac: Normal. Right Ovary: There are 2 complex cysts in the right ovary measuring 2.4 centimeters and 2.7 centimeters. These could be hemorrhagic cysts. Left Ovary: Normal. Estimated delivery date: 04/09/2018 Comment: Complete anatomic survey at 18-20 weeks suggested. There are multiple uterine fibroids measuring up to 3.3 centimeters. IMPRESSION: 1. Single living intrauterine gestation at approximately 6 weeks 2. EDC by US 04/09/2018.
[2017-08-14] MEDS ORDERED: ZOFRAN ONE (07:57)
[2017-08-14] MEDS ORDERED: ZOFRAN IV ONE (07:58)
== END 2017-08-14 15:10 | disposition home or self-care (01) ==
LOC: ED 15:02
DX: O21.0 Mild hyperemesis gravidarum (principal); O23.41 Unspecified infection of urinary tract in pregnancy, first trimester; Z3A.01 Less than 8 weeks gestation of pregnancy
CPT/HCPCS: 36415; 76801; 76817; 80053; 81001; 84702; 85025; 96361; 96374; 96375; 99284; J2405; J2765; J7030; Q0162

== ENCOUNTER 2017-08-23 14:26 | Inpatient (IN) | payer OTHER, MEDICAID ==
[2017-08-23] MEDS: D5LR 1,000 ML IV SCH ×3 (16:00→20:30)
[2017-08-23 16:46] LABS: Basophils % (Auto) 0.3 % (0.0-1.8); Eosinophils # (Auto) 0.2 K/mm3 (0.0-0.4); Eosinophils % (Auto) 1.6 % (0.0-4.3); Hematocrit 41.6 % (30.3-42.9); Hemoglobin 14.7 gm/dl (10.1-14.3); Lymphocytes # (Auto) 1.5 K/mm3 (1.2-5.4); Lymphocytes % (Auto) 15.1 % (13.4-35.0); Mean Corpuscular HGB Conc 35 % (30-34); Mean Corpuscular Hemoglobin 30 pg (28-32); Mean Corpuscular Volume 86 fl (79-97); Monocytes # (Auto) 1.2 K/mm3 (0.0-0.8); Monocytes % (Auto) 12.3 % (0.0-7.3); Platelet Count 286 K/mm3 (140-440); Red Blood Count 4.84 M/mm3 (3.65-5.03); Red Cell Distribution Width 16.3 % (13.2-15.2)
[2017-08-23] MEDS: REGLAN IV SCH (17:00)
[2017-08-23] MEDS: TRANSDERM-SCOP TD SCH (17:00)
[2017-08-23 17:04] LABS: BUN/Creatinine Ratio 17; Blood Urea Nitrogen 10 mg/dL (7-17); Calcium 9.4 mg/dL (8.4-10.2); Hemolysis Index 5
[2017-08-23 17:05] LABS: Lipase 24 units/L (13-60)
[2017-08-23 17:20] LABS: Hepatitis A Antibody IgM Non-Reactive (NonReactive); Hepatitis B Core IgM Non-Reactive (NonReactive); Hepatitis B Surface Antigen Non-Reactive (Negative); Hepatitis C Virus Antibody Non-Reactive (NonReactive)
[2017-08-23 17:39] LABS: HCG,Quantitative 82930 mIU/mL (0-4)
[2017-08-23] MEDS ORDERED: KCL 10MEQ/100ML 10 MEQ/100 ML BAG IV SCH ×2 (20:00→21:00)
--- NOTE | 2017-08-23 20:39 | History and Physical Report ---
History of Present Illness Date of examination: 08/23/17 Date of admission: 08/23/17 15:04 History of present illness: 36 yo LMP EDC of 04/09/18 at 7 weeks gestation presented for New OB Visit in office with [facility] reporting 2-3 weeks of severe nausea with persistent vomiting. Voice unable to hold down/tolerate clear liquids or solids with 15lb shaun loss. Also c/o general weakness and malaise. Seen in ER for IV hydration and sent home. Zofran ODT Rxed for attempt outpatient treatment without success. Previous same symptoms with multiple prolonged hospital visits and Reglan pump. Denies vaginal bleeding or history of thyroid disease. 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), myomectomy (2008) Family/Genetic History: diabetes, cancer Social history: no significant social history - Obstetrical History Expected Date of Delivery: 04/09/18 Actual Gestation: 7 Week(s) 2 Day(s) : 5 Para: 2 Hx # Term Pregnancies: 2 Spontaneous Abortions: 2 Number of Living Children: 2 Medications and Allergies Allergies Allergy/AdvReac Type Severity Reaction Status Date / Time promethazine HCl Allergy Vomiting Verified 06/29/15 23:28 [From Phenergan] Home Medications Medication Instructions Recorded Confirmed Last Taken Type Butalb/Acetaminophen/Caffeine 1 cap PO Q6HR PRN #20 cap 07/31/16 Unknown Rx [Fioricet 50-300-40 mg CAP] traMADol [Ultram] 50 mg PO Q6HR PRN #20 tablet 01/23/17 Unknown Rx Nitrofurantoin Monohyd/M-Cryst 100 mg PO BID #14 capsule 08/14/17 Unknown Rx [Macrobid 100 mg Capsule] Ondansetron [Zofran Odt] 4 mg PO Q8HR PRN #12 tab.rapdis 08/14/17 Unknown Rx Vit Calc,Iron,Folic 1 each PO QDAY #30 tablet 08/14/17 Unknown Rx [ Vitamins] Active Meds: Active Medications Dextrose/Lactated Ringer's (D5lr) 1,000 mls @ 500 mls/hr IV DIRECT KINGS Stop: 08/24/17 16:59 Last Admin: 08/23/17 19:08 Dose: 500 mls/hr Dextrose/Lactated Ringer's (D5lr) 1,000 mls @ 150 mls/hr IV DIRECT KINGS Potassium Chloride 20 meq/ (Sodium Chloride) 260 mls @ 130 mls/hr IV ONCE ONE Stop: 08/23/17 23:29 Potassium Chloride (Kcl 10meq/100ml) 10 meq in 100 mls @ 100 mls/hr IV Q1H KINGS Stop: 08/23/17 23:59 Metoclopramide HCl (Reglan) 10 mg IV Q6H KINGS Last Admin: 08/23/17 17:00 Dose: 10 mg Multivitamins/Iron/Calcium ( Vitamin) 1 each PO QDAY KINGS Ondansetron HCl (Zofran) 4 mg IV Q6H PRN PRN Reason: N/V unrelieved by Reglan Scopolamine (Transderm-Scop) [address] [facility] Last Admin: 08/23/17 17:00 Dose: 1 each Review of Systems Constitutional: weight loss, anorexia, fatigue, weakness, malaise, lethargy, poor appetite Eyes: deferred Ears, nose, mouth and throat: deferred Breasts: deferred Gastrointestinal: abdominal pain, nausea, vomiting, loss of appetite Genitourinary: deferred Rectal Exam: deferred Neurological: vertigo, headaches - Vital Signs Vital signs: Vital Signs Temp Pulse Resp BP 98.1 F 97 H 20 112/73 08/23/17 15:15 08/23/17 15:15 08/23/17 15:15 08/23/17 15:15 Temp Pulse Resp BP Pulse Ox 98.1 F 97 H 20 112/73 08/23/17 15:15 08/23/17 15:15 08/23/17 15:15 08/23/17 15:15 - Physical Exam Breasts: Positive: deferred Lungs: Positive: Normal air movement - Obstetrical FHR comments: U/S at [facility] 08/14/17: Single viable IUP at 6 weeks. EDC 04/09/18 Results Result Diagrams: 08/23/17 16:13 08/23/17 16:13 Abnormal lab results 08/23/17 08/23/17 08/23/17 Range/Units 16:13 16:13 16:13 Hgb 14.7 H (10.1-14.3) gm/dl MCHC 35 H (30-34) % RDW 16.3 H (13.2-15.2) % Worth % (Auto) 12.3 H (0.0-7.3) % Worth # 1.2 H (0.0-0.8) K/mm3 Seg Neutrophils % 70.7 H (40.0-70.0) % Sodium (137-145) mmol/L Potassium (3.6-5.0) mmol/L Chloride (98-107) mmol/L Creatinine (0.7-1.2) mg/dL TSH 0.086 L (0.270-4.200) mlU/mL HCG, Quant 42148 H (0-4) mIU/mL 08/23/17 Range/Units 16:13 Hgb (10.1-14.3) gm/dl MCHC (30-34) % RDW (13.2-15.2) % Worth % (Auto) (0.0-7.3) % Worth # (0.0-0.8) K/mm3 Seg Neutrophils % (40.0-70.0) % Sodium 136 L (137-145) mmol/L Potassium 2.6 L* (3.6-5.0) mmol/L Chloride 89.2 L (98-107) mmol/L Creatinine 0.6 L (0.7-1.2) mg/dL TSH (0.270-4.200) mlU/mL HCG, Quant (0-4) mIU/mL All other labs normal. Assessment and Plan A: IUP at 7.2 weeks Hyperemesis Gravidrium Dehydration 15 lb weight loss P: Admission Hydration Antiemetics Alere for Zofran/Reglan pump outpatient
[2017-08-23] MEDS ORDERED: COMPAZINE IV PRN (21:11)
[2017-08-23] MEDS ORDERED: KCL 20 MEQ in NACL 0.9% 250ML 250 ML IV ONE (21:30)
[2017-08-23 21:49] LABS: Bacteria,Urine 1+ /HPF (Negative); Bilirubin,Urine NEG (Negative); Blood,Urine SM (Negative); Color,Urine Amber (Yellow); Mucus,Urine FEW /HPF; Nitrite,Urine NEG (Negative)
[2017-08-23] MEDS: ZOFRAN IV PRN (22:04)
[2017-08-24] MEDS: REGLAN IV SCH ×3 (02:31→23:48)
[2017-08-24] MEDS: NS/KCL 40MEQ 40 MEQ/1,000 ML BAG IV SCH ×3 (06:11→21:16)
[2017-08-24] MEDS ORDERED: NS/KCL 20MEQ 20 MEQ/1,000 ML BAG IV ONE (08:00)
--- NOTE | 2017-08-24 09:05 | Progress Note ---
Assessment and Plan - Patient Problems (1) Hyperemesis gravidarum Current Visit: Yes Status: Acute Plan to address problem: continue supportive care initiate IV hydrocortisone use Subjective - Subjective Date of service: 08/24/17 Interval history: Patient has been unable to tolerate any significant oral intake. Had similar symptoms with her previous that required the use of reglan pump. Labs indicate significant hypokalemia. Currently receiving K+ replacement. Will take 12 hours to complete the supplementation. Patient reports: no new complaints Objective - Vital Signs Vital Signs: Vital Signs - 12hr 08/24/17 08/24/17 08/24/17 00:15 03:40 08:51 Temperature 98.8 F 98.5 F 98.5 F Pulse Rate 94 H 92 H 93 H Respiratory 18 18 Rate Blood Pressure 104/68 117/75 103/57 [Right] O2 Sat by Pulse 98 100 Oximetry - Labs Labs: Abnormal Labs 08/23/17 08/23/17 08/23/17 16:13 16:13 16:13 Hgb 14.7 H MCHC 35 H RDW 16.3 H [place] % (Auto) 12.3 H [place] # 1.2 H Seg Neutrophils % 70.7 H Sodium Potassium Chloride Creatinine TSH 0.086 L HCG, Quant 47328 H Urine WBC (Auto) 08/23/17 08/23/17 16:13 20:45 Hgb MCHC RDW [place] % (Auto) [place] # Seg Neutrophils % Sodium 136 L Potassium 2.6 L* Chloride 89.2 L Creatinine 0.6 L TSH HCG, Quant Urine WBC (Auto) 15.0 H Laboratory Results - last 24 hr 08/23/17 08/23/17 08/23/17 16:13 16:13 16:13 WBC 10.0 RBC 4.84 Hgb 14.7 H Hct 41.6 MCV 86 MCH 30 MCHC 35 H RDW 16.3 H Plt Count 286 Lymph % (Auto) 15.1 [place] % (Auto) 12.3 H Eos % (Auto) 1.6 Baso % (Auto) 0.3 Lymph # 1.5 [place] # 1.2 H Eos # 0.2 Baso # 0.0 Seg Neutrophils % 70.7 H Seg Neutrophils # 7.1 Sodium Potassium Chloride Carbon Dioxide Anion Gap BUN Creatinine Estimated GFR BUN/Creatinine Ratio Glucose Calcium Amylase 40 Lipase 24 TSH 0.086 L HCG, Quant Urine Color Urine Turbidity Urine pH Ur Specific [place] Urine Protein Urine Glucose (UA) Urine Ketones Urine Blood Urine Nitrite Urine Bilirubin Urine Urobilinogen Ur Leukocyte Esterase Urine WBC (Auto) Urine RBC (Auto) U Epithel Cells (Auto) Urine Bacteria (Auto) Urine Mucus Hepatitis A IgM Ab Hep Bs Antigen Hep B Core IgM Ab Hepatitis C Antibody 08/23/17 08/23/17 08/23/17 16:13 16:13 20:45 WBC RBC Hgb Hct MCV MCH MCHC RDW Plt Count Lymph % (Auto) [place] % (Auto) Eos % (Auto) Baso % (Auto) Lymph # [place] # Eos # Baso # Seg Neutrophils % Seg Neutrophils # Sodium 136 L Potassium 2.6 L* Chloride 89.2 L Carbon Dioxide 23 Anion Gap 26 BUN 10 Creatinine 0.6 L Estimated GFR > 60 BUN/Creatinine Ratio 17 Glucose 78 Calcium 9.4 Amylase Lipase TSH HCG, Quant 74520 H Urine Color [place] Urine Turbidity Clear Urine pH 6.0 Ur Specific [place] 1.018 Urine Protein 30 mg/dl Urine Glucose (UA) Neg Urine Ketones 80 Urine Blood Sm Urine Nitrite Neg Urine Bilirubin Neg Urine Urobilinogen 4.0 Ur Leukocyte Esterase Lg Urine WBC (Auto) 15.0 H Urine RBC (Auto) 5.0 U Epithel Cells (Auto) 6.0 Urine Bacteria (Auto) 1+ Urine Mucus Few Hepatitis A IgM Ab Non-reactive Hep Bs Antigen Non-reactive Hep B Core IgM Ab Non-reactive Hepatitis C Antibody Non-reactive
[2017-08-24] MEDS: PRENATAL VITAMIN PO SCH (10:00)
[2017-08-24] MEDS: D5LR 1,000 ML IV SCH (14:30)
[2017-08-24 15:32] LABS: BUN/Creatinine Ratio 12; Blood Urea Nitrogen 6 mg/dL (7-17); Calcium 7.9 mg/dL (8.4-10.2); Hemolysis Index 28
[2017-08-24] MEDS: PEPCID IV SCH (17:00)
[2017-08-24] MEDS ORDERED: KCL 10MEQ/100ML 10 MEQ/100 ML BAG IV SCH ×2 (19:00→20:00)
[2017-08-24] MEDS ORDERED: KCL 20 MEQ in NACL 0.9% 250ML 250 ML IV ONE ×2 (19:30→20:00)
[2017-08-24] MEDS: ZOFRAN IV PRN (19:50)
[2017-08-24] MEDS: VITAMIN B-6 PO SCH (22:08)
[2017-08-25] MEDS: NS/KCL 40MEQ 40 MEQ/1,000 ML BAG IV SCH (01:59)
[2017-08-25] MEDS: PEPCID IV SCH ×2 (05:54→17:00)
[2017-08-25] MEDS: REGLAN IV SCH ×3 (06:25→19:05)
[2017-08-25] MEDS ORDERED: D5LR 1,000 ML IV SCH (07:00)
--- NOTE | 2017-08-25 08:26 | Progress Note ---
Assessment and Plan A: IUP at 7 wks, Hyperemesis, Morbid Obesity P: Thyroid panel Replete potassium as needed Closely monitor clinical status Subjective - Subjective Date of service: 08/25/17 Principal diagnosis: 1) IUP at 7w4d 2) Hyperemesis 3) Morbid Obesity Interval history: Pt still unable to tolerate oral intake. Patient reports: no new complaints Objective - Vital Signs Vital Signs: Vital Signs - 12hr 08/24/17 08/25/17 08/25/17 20:35 01:05 04:30 Temperature 98.3 F 98.2 F 98.3 F Pulse Rate 87 79 81 Respiratory 18 18 18 Rate Blood Pressure 116/72 91/53 109/62 [Right] O2 Sat by Pulse 96 99 100 Oximetry - Exam Breasts: deferred Cardiovascular: Regular rate Lungs: Clear to auscultation Abdomen: Present: soft (obese ) Extremities: normal - Labs Labs: Abnormal Labs 08/23/17 08/23/17 08/23/17 16:13 16:13 16:13 Hgb 14.7 H MCHC 35 H RDW 16.3 H [place] % (Auto) 12.3 H [place] # 1.2 H Seg Neutrophils % 70.7 H Sodium Potassium Chloride BUN Creatinine Calcium TSH 0.086 L HCG, Quant 37157 H Urine WBC (Auto) 08/23/17 08/23/17 08/24/17 16:13 20:45 14:50 Hgb MCHC RDW [place] % (Auto) [place] # Seg Neutrophils % Sodium 136 L Potassium 2.6 L* 3.3 L D Chloride 89.2 L BUN 6 L Creatinine 0.6 L 0.5 L Calcium 7.9 L D TSH HCG, Quant Urine WBC (Auto) 15.0 H Laboratory Results - last 24 hr 08/24/17 14:50 Sodium 139 Potassium 3.3 L D Chloride 105.3 Carbon Dioxide 25 Anion Gap 12 BUN 6 L Creatinine 0.5 L Estimated GFR > 60 BUN/Creatinine Ratio 12 Glucose 100 Calcium 7.9 L D
[2017-08-25 09:06] LABS: BUN/Creatinine Ratio 10; Blood Urea Nitrogen 3 mg/dL (7-17); Calcium 6.2 mg/dL (8.4-10.2); Hemolysis Index 4
[2017-08-25 09:32] LABS: Free T4 (Free Thyroxine) 2.08 ng/dL (0.76-1.46)
[2017-08-25] MEDS: ZOFRAN IV PRN (09:34)
[2017-08-25] MEDS: VITAMIN B-6 PO SCH ×3 (09:37→20:11)
[2017-08-25] MEDS: PRENATAL VITAMIN PO SCH (09:38)
[2017-08-25] MEDS ORDERED: KCL 10MEQ/100ML 10 MEQ/100 ML BAG IV SCH ×2 (14:00→23:45)
[2017-08-25] MEDS: KCL 10 MEQ in NACL 0.9% 100 ML IV SCH ×4 (16:00→19:07)
[2017-08-25] MEDS: PROPYLTHIOURACIL PO SCH (22:20)
[2017-08-26] MEDS: KCL 10 MEQ in NACL 0.9% 100 ML IV SCH ×4 (00:37→04:47)
[2017-08-26] MEDS: REGLAN IV SCH ×4 (01:10→22:42)
[2017-08-26] MEDS: PROPYLTHIOURACIL PO SCH ×3 (03:00→22:00)
[2017-08-26] MEDS: PEPCID IV SCH ×3 (04:47→22:41)
[2017-08-26] MEDS: ZOFRAN IV PRN ×2 (08:12→17:02)
--- NOTE | 2017-08-26 08:47 | Progress Note ---
Assessment and Plan O: VSS AF AM K+: 2.9 A: IUP at 7 weeks Hyperemesis Hypokalemia Hyperthyroid P: MD consult Subjective - Subjective Date of service: 08/26/17 Principal diagnosis: 1) IUP at 7w4d 2) Hyperemesis 3) Morbid Obesity Interval history: 36 yo LMP EDC of 04/09/18 at 7 weeks gestation presented for New OB Visit in office with [place] [facility] [employer] reporting 2-3 weeks of severe nausea with persistent vomiting. Voice unable to hold down/tolerate clear liquids or solids with 15lb shaun loss. Also c/o general weakness and malaise. Seen in ER for IV hydration and sent home. Zofran ODT Rxed for attempt outpatient treatment without success. Previous same symptoms with multiple prolonged hospital visits and Reglan pump. Denies vaginal bleeding or history of thyroid disease. Patient reports: no new complaints (continued nausea. Tolerating small amount of solids) Objective - Vital Signs Vital Signs: Vital Signs - 12hr 08/25/17 08/26/17 23:45 04:35 Temperature 98.2 F 98.4 F Pulse Rate 79 76 Respiratory 20 20 Rate Blood Pressure 125/79 135/83 [Right] O2 Sat by Pulse 98 98 Oximetry - Exam Breasts: deferred Abdomen: Present: normal appearance, soft. Absent: distention, tenderness - Labs Labs: Abnormal Labs 08/23/17 08/23/17 08/23/17 16:13 16:13 16:13 Hgb 14.7 H MCHC 35 H RDW 16.3 H [place] % (Auto) 12.3 H [place] # 1.2 H Seg Neutrophils % 70.7 H Sodium Potassium Chloride Carbon Dioxide BUN Creatinine Glucose Calcium TSH 0.086 L Free T4 HCG, Quant 17700 H Urine WBC (Auto) 08/23/17 08/23/17 08/24/17 16:13 20:45 14:50 Hgb MCHC RDW [place] % (Auto) [place] # Seg Neutrophils % Sodium 136 L Potassium 2.6 L* 3.3 L D Chloride 89.2 L Carbon Dioxide BUN 6 L Creatinine 0.6 L 0.5 L Glucose Calcium 7.9 L D TSH Free T4 HCG, Quant Urine WBC (Auto) 15.0 H 08/25/17 08/25/17 08/25/17 08:35 08:35 12:33 Hgb MCHC RDW [place] % (Auto) [place] # Seg Neutrophils % Sodium Potassium 2.4 L* D 2.8 L* Chloride 110.9 H Carbon Dioxide 18 L D BUN 3 L Creatinine 0.3 L Glucose 136 H Calcium 6.2 L D TSH 0.063 L Free T4 2.08 H HCG, Quant Urine WBC (Auto) 08/25/17 08/25/17 08/26/17 16:40 22:41 07:02 Hgb MCHC RDW [place] % (Auto) [place] # Seg Neutrophils % Sodium Potassium 3.0 L 2.9 L* 2.9 L* Chloride Carbon Dioxide BUN Creatinine Glucose Calcium TSH Free T4 HCG, Quant Urine WBC (Auto) Laboratory Results - last 24 hr 08/25/17 08/25/17 08/25/17 08:35 08:35 12:33 Sodium 143 Potassium 2.4 L* D 2.8 L* Chloride 110.9 H Carbon Dioxide 18 L D Anion Gap 17 BUN 3 L Creatinine 0.3 L Estimated GFR > 60 BUN/Creatinine Ratio 10 Glucose 136 H Calcium 6.2 L D TSH 0.063 L Free T4 2.08 H 08/25/17 08/25/17 08/26/17 16:40 22:41 07:02 Sodium Potassium 3.0 L 2.9 L* 2.9 L* Chloride Carbon Dioxide Anion Gap BUN Creatinine Estimated GFR BUN/Creatinine Ratio Glucose Calcium TSH Free T4
[2017-08-26] MEDS: VITAMIN B-6 PO SCH ×2 (10:27→20:00)
[2017-08-26] MEDS: PRENATAL VITAMIN PO SCH (10:28)
[2017-08-26] MEDS ORDERED: KCL 40 MEQ in NACL 0.45% 1000 ML 1,000 ML IV SCH (11:30)
[2017-08-26] MEDS ORDERED: K-DUR PO NR (13:00)
[2017-08-26] MEDS ORDERED: MAGNESIUM SULFATE 3 GM in NACL 0.9% 100 ML IV ONE (16:42)
--- NOTE | 2017-08-26 16:43 | Consultation ---
History of Present Illness - Reason for Consult Consult date: 08/26/17 hypokalemia Requesting physician: RANI CORONEL - History of Present Illness 36F with IUP, 7 weeks who presents with hyperemesis, states that she is no longer vomiting today and that she tolerated a sandwich for lunch and kept it down. Past History Past Medical History: No medical history Past Surgical History: No surgical history Social history: no significant social history Family history: hypertension Medications and Allergies Allergies Allergy/AdvReac Type Severity Reaction Status Date / Time promethazine HCl Allergy Vomiting Verified 06/29/15 23:28 [From Phenergan] Home Medications Medication Instructions Recorded Confirmed Last Taken Type Butalb/Acetaminophen/Caffeine 1 cap PO Q6HR PRN #20 cap 07/31/16 08/23/17 Unknown Rx [Fioricet 50-300-40 mg CAP] traMADol [Ultram] 50 mg PO Q6HR PRN #20 tablet 01/23/17 08/23/17 Unknown Rx Nitrofurantoin Monohyd/M-Cryst 100 mg PO BID #14 capsule 08/14/17 08/23/17 Unknown Rx [Macrobid 100 mg Capsule] Ondansetron [Zofran Odt] 4 mg PO Q8HR PRN #12 tab.rapdis 08/14/17 08/23/17 Unknown Rx Vit Calc,Iron,Folic 1 each PO QDAY #30 tablet 08/14/17 08/23/17 Unknown Rx [ Vitamins] Active Meds: Active Medications Famotidine (Pepcid) [address] [facility] Last Admin: 08/26/17 10:15 Dose: 20 mg Hydrocortisone Sodium Succinate (Solu-Cortef) [address] [facility] Last Admin: 08/26/17 10:15 Dose: 100 mg Potassium Chloride 40 meq/ (Sodium Chloride) 1,020 mls @ 125 mls/hr IV [facility] Metoclopramide HCl (Reglan) [address] [facility] Last Admin: 08/26/17 10:15 Dose: 10 mg Multivitamins/Iron/Calcium ( Vitamin) [address] [facility] Last Admin: 08/26/17 10:28 Dose: Not Given Ondansetron HCl (Zofran) 4 mg IV Q6H PRN PRN Reason: N/V unrelieved by Reglan Last Admin: 08/26/17 08:12 Dose: 4 mg Prochlorperazine Edisylate (Compazine) 5 mg IV Q6H PRN PRN Reason: Nausea And Vomiting Last Admin: 08/24/17 06:11 Dose: 5 mg Propylthiouracil (Propylthiouracil) [address] [facility] Last Admin: 08/26/17 10:28 Dose: Not Given Pyridoxine HCl (Vitamin B-6) [address] [facility] Last Admin: 08/26/17 10:27 Dose: Not Given Scopolamine (Transderm-Scop) [address] [facility] Last Admin: 08/23/17 17:00 Dose: 1 each Review of Systems All systems: negative (14 point ros is otherwise neg except as stated) Constitutional: no fever Cardiovascular: no chest pain Respiratory: no shortness of breath Gastrointestinal: nausea, vomiting, no diarrhea Exam - Constitutional Vitals: Temp Pulse Resp BP Pulse Ox 98.1 F 80 20 117/76 97 08/26/17 12:23 08/26/17 12:23 08/26/17 12:23 08/26/17 12:23 08/26/17 12:23 General appearance: Present: no acute distress, well-nourished - EENT Eyes: Present: PERRL ENT: hearing intact, clear oral mucosa - Neck Neck: Present: supple, normal ROM - Respiratory Respiratory effort: normal Respiratory: bilateral: CTA - Cardiovascular Heart Sounds: Present: S1 & S2. Absent: rub, click - Extremities Extremities: pulses symmetrical, No edema Peripheral Pulses: within normal limits - Abdominal General gastrointestinal: Present: soft, non-tender, non-distended, normal bowel sounds Female genitourinary: Present: normal - Integumentary Integumentary: Present: clear, warm, dry - Musculoskeletal Musculoskeletal: gait normal, strength equal bilaterally - Psychiatric Psychiatric: appropriate mood/affect, intact judgment & insight - Neurologic Neurologic: CNII-XII intact, moves all extremities Results - Labs CBC & Chem 7: 08/23/17 16:13 08/26/17 07:02 Labs: Abnormal lab results 08/25/17 08/25/17 08/26/17 Range/Units 16:40 22:41 07:02 Potassium 3.0 L 2.9 L* 2.9 L* (3.6-5.0) mmol/L Magnesium (1.7-2.3) mg/dL 08/26/17 Range/Units 12:21 Potassium (3.6-5.0) mmol/L Magnesium 1.50 L (1.7-2.3) mg/dL Assessment and Plan 36F with IUP, 7 weeks who pw hyperemesis gravidum hyperemesis gravidum -continue anti-emetics, she is improving Hypokalemia/hypomagnesemia -replete IV, recheck levels in am DVT ppx per primary team
[2017-08-26] MEDS: TRANSDERM-SCOP TD SCH (22:42)
[2017-08-27] MEDS ORDERED: D5LR 1,000 ML IV SCH (01:00)
[2017-08-27 04:00] LABS: BUN/Creatinine Ratio 5; Blood Urea Nitrogen 2 mg/dL (7-17); Calcium 7.8 mg/dL (8.4-10.2); Hemolysis Index 1
[2017-08-27] MEDS: REGLAN IV SCH ×4 (05:39→23:54)
[2017-08-27] MEDS ORDERED: KCL 40 MEQ in NACL 0.45% 1000 ML 1,000 ML IV SCH (07:07)
[2017-08-27] MEDS: VITAMIN B-6 PO SCH ×4 (08:00→20:00)
[2017-08-27] MEDS: PROPYLTHIOURACIL PO SCH ×2 (09:37→22:00)
[2017-08-27] MEDS: PEPCID IV SCH ×2 (09:41→23:54)
[2017-08-27] MEDS: PRENATAL VITAMIN PO SCH (09:41)
[2017-08-27] MEDS: K-DUR PO SCH ×2 (10:00→22:37)
--- NOTE | 2017-08-27 13:39 | Consultation ---
History of Present Illness - Reason for Consult Consult date: 08/27/17 hypokalemia Requesting physician: RANI CORONEL - History of Present Illness This is a 36 y/o female with no significant PMH who is 7 weeks who presented to [facility] with c/o worsening nausea, nausea unable to tolerate food/ fluid intake, intermittent abdominal pain (more so prior to admission), 15 pound weight loss, and fatigue for about 3 weeks. Patient reports no improvement in her symptoms so she came to [facility] for further workup. Patient denies chest pain, shortness of breath, headache, dysuria, diarrhea, constipation, black or bloody stools. Patient found to have hypokalemia on admission, receiving potassium repletion, but minimal improvement in hypokalemia thus far. We were consulted to evaluate this patient who has hypokalemia. Patient reports she was able to keep down her lunch today (chicken pot pie) and her medications. Past History Past Medical History: No medical history Past Surgical History: No surgical history Social history: no significant social history Family history: hypertension Medications and Allergies Allergies Allergy/AdvReac Type Severity Reaction Status Date / Time promethazine HCl Allergy Vomiting Verified 06/29/15 23:28 [From Phenergan] Home Medications Medication Instructions Recorded Confirmed Last Taken Type Butalb/Acetaminophen/Caffeine 1 cap PO Q6HR PRN #20 cap 07/31/16 08/23/17 Unknown Rx [Fioricet 50-300-40 mg CAP] traMADol [Ultram] 50 mg PO Q6HR PRN #20 tablet 01/23/17 08/23/17 Unknown Rx Nitrofurantoin Monohyd/M-Cryst 100 mg PO BID #14 capsule 08/14/17 08/23/17 Unknown Rx [Macrobid 100 mg Capsule] Ondansetron [Zofran Odt] 4 mg PO Q8HR PRN #12 tab.rapdis 08/14/17 08/23/17 Unknown Rx Vit Calc,Iron,Folic 1 each PO QDAY #30 tablet 08/14/17 08/23/17 Unknown Rx [ Vitamins] Active Meds: Active Medications Famotidine (Pepcid) 20 mg IV BID [facility] Last Admin: 08/27/17 09:41 Dose: 20 mg Hydrocortisone Sodium Succinate (Solu-Cortef) 100 mg IV Q8H [facility] Last Admin: 08/27/17 09:36 Dose: 100 mg Dextrose/Lactated Ringer's (D5lr) 1,000 mls @ 125 mls/hr IV [facility] Last Admin: 08/27/17 01:16 Dose: 125 mls/hr Potassium Chloride 40 meq/ (Sodium Chloride) 1,020 mls @ 125 mls/hr IV [facility] Last Admin: 08/27/17 09:47 Dose: 125 mls/hr Metoclopramide HCl (Reglan) 10 mg IV Q6H [facility] Last Admin: 08/27/17 05:39 Dose: 10 mg Multivitamins/Iron/Calcium ( Vitamin) 1 each PO QDAY [facility] Last Admin: 08/27/17 09:41 Dose: Not Given Ondansetron HCl (Zofran) 4 mg IV Q6H PRN PRN Reason: N/V unrelieved by Reglan Last Admin: 08/26/17 17:02 Dose: 4 mg Potassium Chloride (K-Dur) 40 meq PO BID [facility] Last Admin: 08/27/17 10:00 Dose: 20 meq Prochlorperazine Edisylate (Compazine) 5 mg IV Q6H PRN PRN Reason: Nausea And Vomiting Last Admin: 08/24/17 06:11 Dose: 5 mg Propylthiouracil (Propylthiouracil) 50 mg PO BID [facility] Last Admin: 08/27/17 09:37 Dose: 50 mg Pyridoxine HCl (Vitamin B-6) 25 mg PO TID [facility] Last Admin: 08/27/17 09:32 Dose: 25 mg Scopolamine (Transderm-Scop) 1 each TD Q3D [facility] Last Admin: 08/26/17 22:42 Dose: 1 each Review of Systems Constitutional: fatigue, weakness, no fever, no chills Ears, nose, mouth and throat: no headache Cardiovascular: no chest pain, no shortness of breath, no dyspnea on exertion Respiratory: no cough with sputum, no shortness of breath, no dyspnea on exertion Gastrointestinal: abdominal pain, nausea, vomiting, no diarrhea, no constipation , no melena Genitourinary Female: no dysuria Musculoskeletal: no arm numbness/tingling, no leg numbness/tingling Integumentary: no sores, no wounds Neurological: no numbness, no tingling, no headaches Psychiatric: no anxiety, no depression Endocrine: fatigue Exam - Vital Signs Vital signs: Vital Signs Temp Pulse Resp BP 98.1 F 97 H 20 112/73 08/23/17 15:15 08/23/17 15:15 08/23/17 15:15 08/23/17 15:15 - General Appearance General appearance: well-developed (no acute distress, sitting up in the chair) EENT: ATNC Neck: Present: neck supple Respiratory: Clear to Ascultation Heart: regular, S1S2 Gastrointestinal: Present: normoactive bowel sounds. Absent: tenderness Integumentary: warm and dry Neurologic: alert and oriented x3 Musculoskeletal: Present: other (no edema to both lower extremities) Psychiatric: mood/affect appropriate, cooperative Results - Lab Results 08/23/17 16:13 08/27/17 03:00 Most recent lab results Calcium 7.8 mg/dL (8.4-10.2) L D 08/27/17 03:00 Magnesium 1.90 mg/dL (1.7-2.3) 08/27/17 10:13 Assessment and Plan - Patient Problems (1) Hyperemesis gravidarum Current Visit: Yes Status: Acute Plan to address problem: CIRCULATION ANALYST on board, on reglan, zofran, compazine, GI soft diet, IV fluids Follow up recs (2) Hypokalemia Current Visit: Yes Status: Acute Plan to address problem: Hypokalemia possibly multifactorial secondary to inadequate dietary potassium oral intake worsened in setting of persistent vomiting, hypomagnesemia, and metabolic alkalosis Follow up urine studies to evaluate if renal loss is a contributing factor toward hypokalemia etiology Serum potassium level was 2.6 today, yesterday's serum potassium level was 2.9 On admission (08/23/18), serum potassium level was 2.9, highest serum potassium level thus far this hospitalization was 3.3 on Started on potassium chloride 40 mEq orally twice a day Agree with switching from D5 LR infusion to current 0.45% NS + 40 mEq KCl infusion at 125 ml/hr Replete magnesium Urine potassium and urine creatinine pending Repeat BMP today at 1800 ABG reviewed consistent with metabolic alkalosis Follow up repeat labs, urine studies, and adjust renal management depending on lab/clinical findings Renal plan discussed with Dr Hilliard Continue supportive therapy (3) Dehydration Current Visit: No Status: Acute Plan to address problem: Continue on IV fluids (4) Current Visit: No Status: Acute Qualifiers: Weeks of gestation: less than 8 weeks Qualified Code(s): Z3A.01 - Less than 8 weeks gestation of Plan to address problem: As per CIRCULATION ANALYST
[2017-08-27] MEDS ORDERED: KCL 10MEQ/100ML 10 MEQ/100 ML BAG IV SCH ×2 (14:00→22:00)
[2017-08-27] MEDS ORDERED: MAGNESIUM SULFATE 1 GM in NACL 0.9% 50 ML IV ONE (14:30)
--- NOTE | 2017-08-27 14:51 | Progress Note ---
Subjective - Subjective Principal diagnosis: 1) IUP at 7w4d 2) Hyperemesis 3) Morbid Obesity Interval history: Pt still unable to tolerate oral intake. Objective - Vital Signs Latest vital signs: Vital Signs Temp Pulse Resp BP Pulse Ox 08/27/17 12:50 98.5 F 91 H 18 112/64 91 08/27/17 08:00 18 08/27/17 07:55 98.6 F 73 18 113/61 08/27/17 04:05 98.8 F 92 H 18 115/61 08/27/17 00:00 98.7 F 78 18 114/74 08/26/17 20:10 99.1 F 89 18 109/66 08/26/17 16:45 98.1 F 92 H 18 139/86 97 Intake and Output 08/26/17 08/27/17 08/27/17 22:59 06:59 14:59 Intake Total 120 480 Output Total 575 450 Balance 120 -575 30 Intake: Oral 120 480 Output: Urine 575 450 Indwelling Catheter 575 450 Other: Total, Intake Amount 120 480 Total, Output Amount 575 450 Voiding Method Toilet Toilet # Voids Void 1 1 - Labs Labs: Abnormal lab results 08/27/17 08/27/17 Range/Units 03:00 11:17 POC ABG pH 7.525 H (7.35-7.45) Potassium 2.6 L* (3.6-5.0) mmol/L BUN 2 L (7-17) mg/dL Creatinine 0.4 L (0.7-1.2) mg/dL Glucose 142 H (65-100) mg/dL Calcium 7.8 L D (8.4-10.2) mg/dL
[2017-08-27] MEDS ORDERED: KCL 40 MEQ in NACL 0.9% 500 ML 500 ML IV ONE ×2 (15:00→22:00)
[2017-08-27 18:56] LABS: Creatinine,Urine 55.4 mg/dL (0.1-20.0); Potassium, Urine 27.6 mmol/L
[2017-08-27 19:10] LABS: BUN/Creatinine Ratio 8; Blood Urea Nitrogen 4 mg/dL (7-17); Calcium 7.7 mg/dL (8.4-10.2); Hemolysis Index 15
--- NOTE | 2017-08-27 21:39 | Progress Note ---
Assessment and Plan A: IUP at 7 wks, Hyperemesis, Persistent Hypokalemia Morbid Obesity P: Medicine consult appreciated Nephrology consult Subjective - Subjective Date of service: 08/27/17 Principal diagnosis: 1) IUP at 7w4d 2) Hyperemesis 3) Morbid Obesity Interval history: Tolerating some PO intake (solid and liquid) but remains hypokalemic despite repletion Patient reports: no new complaints (continued nausea. Tolerating small amount of solids), no loss of fluid, no vaginal bleeding, no contractions Objective - Vital Signs Vital Signs: Vital Signs - 12hr 08/27/17 08/27/17 08/27/17 12:50 16:00 20:25 Temperature 98.5 F 97.7 F Pulse Rate 91 H 71 66 Respiratory 18 18 Rate Blood Pressure 112/64 139/87 [Right] O2 Sat by Pulse 91 99 99 Oximetry 08/27/17 21:22 Temperature 98.4 F Pulse Rate 71 Respiratory 20 Rate Blood Pressure 104/51 [Right] O2 Sat by Pulse 99 Oximetry - Exam Breasts: deferred Cardiovascular: Regular rate Lungs: Clear to auscultation Abdomen: Present: soft (obese ) Extremities: normal - Labs Labs: Abnormal Labs 08/23/17 08/23/17 08/23/17 16:13 16:13 16:13 Hgb 14.7 H MCHC 35 H RDW 16.3 H [place] % (Auto) 12.3 H [place] # 1.2 H Seg Neutrophils % 70.7 H POC ABG pH Sodium Potassium Chloride Carbon Dioxide BUN Creatinine Glucose Calcium Phosphorus Magnesium TSH 0.086 L Free T4 HCG, Quant 63798 H Urine WBC (Auto) Urine Creatinine 08/23/17 08/23/17 08/24/17 16:13 20:45 14:50 Hgb MCHC RDW [place] % (Auto) [place] # Seg Neutrophils % POC ABG pH Sodium 136 L Potassium 2.6 L* 3.3 L D Chloride 89.2 L Carbon Dioxide BUN 6 L Creatinine 0.6 L 0.5 L Glucose Calcium 7.9 L D Phosphorus Magnesium TSH Free T4 HCG, Quant Urine WBC (Auto) 15.0 H Urine Creatinine 08/25/17 08/25/17 08/25/17 08:35 08:35 12:33 Hgb MCHC RDW [place] % (Auto) [place] # Seg Neutrophils % POC ABG pH Sodium Potassium 2.4 L* D 2.8 L* Chloride 110.9 H Carbon Dioxide 18 L D BUN 3 L Creatinine 0.3 L Glucose 136 H Calcium 6.2 L D Phosphorus Magnesium TSH 0.063 L Free T4 2.08 H HCG, Quant Urine WBC (Auto) Urine Creatinine 08/25/17 08/25/17 08/26/17 16:40 22:41 07:02 Hgb MCHC RDW [place] % (Auto) [place] # Seg Neutrophils % POC ABG pH Sodium Potassium 3.0 L 2.9 L* 2.9 L* Chloride Carbon Dioxide BUN Creatinine Glucose Calcium Phosphorus Magnesium TSH Free T4 HCG, Quant Urine WBC (Auto) Urine Creatinine 08/26/17 08/27/17 08/27/17 12:21 03:00 11:17 Hgb MCHC RDW [place] % (Auto) [place] # Seg Neutrophils % POC ABG pH 7.525 H Sodium Potassium 2.6 L* Chloride Carbon Dioxide BUN 2 L Creatinine 0.4 L Glucose 142 H Calcium 7.8 L D Phosphorus Magnesium 1.50 L TSH Free T4 HCG, Quant Urine WBC (Auto) Urine Creatinine 08/27/17 08/27/17 08/27/17 18:35 18:38 20:56 Hgb MCHC RDW [place] % (Auto) [place] # Seg Neutrophils % POC ABG pH Sodium Potassium 2.4 L* 2.8 L* Chloride Carbon Dioxide BUN 4 L Creatinine 0.5 L Glucose 149 H Calcium 7.7 L Phosphorus 2.00 L Magnesium TSH Free T4 HCG, Quant Urine WBC (Auto) Urine Creatinine 55.4 H Laboratory Results - last 24 hr 08/27/17 08/27/17 08/27/17 03:00 10:13 11:17 POC ABG pH 7.525 H POC ABG pCO2 35.5 POC ABG pO2 87 POC ABG HCO3 29.3 POC ABG Total CO2 30 POC ABG O2 Sat 98 POC ABG Base Excess 7 FiO2 21 Sodium 139 Potassium 2.6 L* Chloride 100.1 Carbon Dioxide 27 D Anion Gap 15 BUN 2 L Creatinine 0.4 L Estimated GFR > 60 BUN/Creatinine Ratio 5 Glucose 142 H Calcium 7.8 L D Phosphorus Magnesium 1.90 1.90 Urine Creatinine Urine Potassium 08/27/17 08/27/17 08/27/17 18:35 18:38 20:56 POC ABG pH POC ABG pCO2 POC ABG pO2 POC ABG HCO3 POC ABG Total CO2 POC ABG O2 Sat POC ABG Base Excess FiO2 Sodium 138 Potassium 2.4 L* 2.8 L* Chloride 98.2 Carbon Dioxide 27 Anion Gap 15 BUN 4 L Creatinine 0.5 L Estimated GFR > 60 BUN/Creatinine Ratio 8 Glucose 149 H Calcium 7.7 L Phosphorus 2.00 L Magnesium Urine Creatinine 55.4 H Urine Potassium 27.60
[2017-08-27] MEDS ORDERED: KPHOS 45 MMOL in NACL 0.9% 500 ML 500 ML IV ONE (21:42)
--- NOTE | 2017-08-27 21:43 | Progress Note ---
Assessment and Plan Assessment and plan: 36F with IUP, 7 weeks who pw hyperemesis gravidum hyperemesis gravidum -continue anti-emetics, she is improving Hypokalemia/hypomagnesemia/hypophosphatemia -replete IV, recheck levels in am DVT ppx per primary team History Interval history: denies n/v/d no cp, no sob, no fever, no chills Hospitalist Physical - Physical exam Narrative exam: General appearance: Present: no acute distress, well-nourished - EENT Eyes: Present: PERRL ENT: hearing intact, clear oral mucosa - Neck Neck: Present: supple, normal ROM - Respiratory Respiratory effort: normal Respiratory: bilateral: CTA - Cardiovascular Heart Sounds: Present: S1 & S2. Absent: rub, click - Extremities Extremities: pulses symmetrical, No edema Peripheral Pulses: within normal limits - Abdominal General gastrointestinal: Present: soft, non-tender, non-distended, normal bowel sounds Female genitourinary: Present: normal - Integumentary Integumentary: Present: clear, warm, dry - Musculoskeletal Musculoskeletal: gait normal, strength equal bilaterally - Psychiatric Psychiatric: appropriate mood/affect, intact judgment & insight - Neurologic Neurologic: CNII-XII intact, moves all extremities - Constitutional Vitals: Temp Pulse Resp BP Pulse Ox 98.4 F 71 20 104/51 99 08/27/17 21:22 08/27/17 21:22 08/27/17 21:22 08/27/17 21:22 08/27/17 21:22 General appearance: Present: no acute distress, well-nourished Results - Labs CBC & Chem 7: 08/23/17 16:13 08/29/17 06:04 Labs: Laboratory Last Values WBC 10.0 K/mm3 (4.5-11.0) 08/23/17 16:13 RBC 4.84 M/mm3 (3.65-5.03) 08/23/17 16:13 Hgb 14.7 gm/dl (10.1-14.3) H 08/23/17 16:13 Hct 41.6 % (30.3-42.9) 08/23/17 16:13 MCV 86 fl (79-97) 08/23/17 16:13 MCH 30 pg (28-32) 08/23/17 16:13 MCHC 35 % (30-34) H 08/23/17 16:13 RDW 16.3 % (13.2-15.2) H 08/23/17 16:13 Plt Count 286 K/mm3 (140-440) 08/23/17 16:13 Lymph % (Auto) 15.1 % (13.4-35.0) 08/23/17 16:13 [place] % (Auto) 12.3 % (0.0-7.3) H 08/23/17 16:13 Eos % (Auto) 1.6 % (0.0-4.3) 08/23/17 16:13 Baso % (Auto) 0.3 % (0.0-1.8) 08/23/17 16:13 Lymph # 1.5 K/mm3 (1.2-5.4) 08/23/17 16:13 [place] # 1.2 K/mm3 (0.0-0.8) H 08/23/17 16:13 Eos # 0.2 K/mm3 (0.0-0.4) 08/23/17 16:13 Baso # 0.0 K/mm3 (0.0-0.1) 08/23/17 16:13 Seg Neutrophils % 70.7 % (40.0-70.0) H 08/23/17 16:13 Seg Neutrophils # 7.1 K/mm3 (1.8-7.7) 08/23/17 16:13 POC ABG pH 7.525 (7.35-7.45) H 08/27/17 11:17 POC ABG pCO2 35.5 (35-45) 08/27/17 11:17 POC ABG pO2 87 (80-105) 08/27/17 11:17 POC ABG HCO3 29.3 08/27/17 11:17 POC ABG Total CO2 30 08/27/17 11:17 POC ABG O2 Sat 98 08/27/17 11:17 POC ABG Base Excess 7 08/27/17 11:17 FiO2 21 % 08/27/17 11:17 Sodium 138 mmol/L (137-145) 08/27/17 18:35 Potassium 2.8 mmol/L (3.6-5.0) L* 08/27/17 20:56 Chloride 98.2 mmol/L (98-107) 08/27/17 18:35 Carbon Dioxide 27 mmol/L (22-30) 08/27/17 18:35 Anion Gap 15 mmol/L 08/27/17 18:35 BUN 4 mg/dL (7-17) L 08/27/17 18:35 Creatinine 0.5 mg/dL (0.7-1.2) L 08/27/17 18:35 Estimated GFR > 60 ml/min 08/27/17 18:35 BUN/Creatinine Ratio 8 % 08/27/17 18:35 Glucose 149 mg/dL (65-100) H 08/27/17 18:35 Calcium 7.7 mg/dL (8.4-10.2) L 08/27/17 18:35 Phosphorus 2.00 mg/dL (2.5-4.5) L 08/27/17 18:35 Magnesium 1.90 mg/dL (1.7-2.3) 08/27/17 10:13 Amylase 40 units/L (27-131) 08/23/17 16:13 Lipase 24 units/L (13-60) 08/23/17 16:13 TSH 0.063 mlU/mL (0.270-4.200) L 08/25/17 08:35 Free T4 2.08 ng/dL (0.76-1.46) H 08/25/17 08:35 HCG, Quant 20109 mIU/mL (0-4) H 08/23/17 16:13 Urine Color [place] (Yellow) 08/23/17 20:45 Urine Turbidity Clear (Clear) 08/23/17 20:45 Urine pH 6.0 (5.0-7.0) 08/23/17 20:45 Ur Specific [place] 1.018 (1.003-1.030) 08/23/17 20:45 Urine Protein 30 mg/dl mg/dL (Negative) 08/23/17 20:45 Urine Glucose (UA) Neg mg/dL (Negative) 08/23/17 20:45 Urine Ketones 80 mg/dL (Negative) 08/23/17 20:45 Urine Blood Sm (Negative) 08/23/17 20:45 Urine Nitrite Neg (Negative) 08/23/17 20:45 Urine Bilirubin Neg (Negative) 08/23/17 20:45 Urine Urobilinogen 4.0 mg/dL (<2.0) 08/23/17 20:45 Ur Leukocyte Esterase Lg (Negative) 08/23/17 20:45 Urine WBC (Auto) 15.0 /HPF (0.0-6.0) H 08/23/17 20:45 Urine RBC (Auto) 5.0 /HPF (0.0-6.0) 08/23/17 20:45 U Epithel Cells (Auto) 6.0 /HPF (0-13.0) 08/23/17 20:45 Urine Bacteria (Auto) 1+ /HPF (Negative) 08/23/17 20:45 Urine Mucus Few /HPF 08/23/17 20:45 Urine Creatinine 55.4 mg/dL (0.1-20.0) H 08/27/17 18:38 Urine Potassium 27.60 mmol/L 08/27/17 18:38 Hepatitis A IgM Ab Non-reactive (NonReactive) 08/23/17 16:13 Hep Bs Antigen Non-reactive (Negative) 08/23/17 16:13 Hep B Core IgM Ab Non-reactive (NonReactive) 08/23/17 16:13 Hepatitis C Antibody Non-reactive (NonReactive) 08/23/17 16:13
[2017-08-28] MEDS: ZOFRAN IV PRN (05:45)
[2017-08-28 07:38] LABS: BUN/Creatinine Ratio 10; Blood Urea Nitrogen 4 mg/dL (7-17); Calcium 7.8 mg/dL (8.4-10.2); Hemolysis Index 6
[2017-08-28] MEDS: VITAMIN B-6 PO SCH ×3 (08:34→20:00)
[2017-08-28] MEDS ORDERED: KCL 10MEQ/100ML 10 MEQ/100 ML BAG IV SCH ×2 (09:00→17:00)
[2017-08-28] MEDS: PEPCID IV SCH ×2 (10:00→22:24)
[2017-08-28] MEDS: K-DUR PO SCH ×2 (10:00→22:00)
[2017-08-28] MEDS: PRENATAL VITAMIN PO SCH (10:01)
[2017-08-28] MEDS: PROPYLTHIOURACIL PO SCH ×2 (10:02→22:00)
--- NOTE | 2017-08-28 12:01 | Progress Note ---
Assessment and Plan Assessment and plan: 36F with IUP, 7 weeks who pw hyperemesis gravidum hyperemesis gravidum -continue anti-emetics, she is improving Hypokalemia/hypomagnesemia/hypophosphatemia -replete IV, recheck levels in am DVT ppx per primary team History Interval history: denies n/v/d no cp, no sob, no fever, no chills Hospitalist Physical - Physical exam Narrative exam: General appearance: Present: no acute distress, well-nourished - EENT Eyes: Present: PERRL ENT: hearing intact, clear oral mucosa - Neck Neck: Present: supple, normal ROM - Respiratory Respiratory effort: normal Respiratory: bilateral: CTA - Cardiovascular Heart Sounds: Present: S1 & S2. Absent: rub, click - Extremities Extremities: pulses symmetrical, No edema Peripheral Pulses: within normal limits - Abdominal General gastrointestinal: Present: soft, non-tender, non-distended, normal bowel sounds Female genitourinary: Present: normal - Integumentary Integumentary: Present: clear, warm, dry - Musculoskeletal Musculoskeletal: gait normal, strength equal bilaterally - Psychiatric Psychiatric: appropriate mood/affect, intact judgment & insight - Neurologic Neurologic: CNII-XII intact, moves all extremities - Constitutional Vitals: Temp Pulse Resp BP Pulse Ox 98.6 F 59 L 18 115/54 95 08/28/17 07:25 08/28/17 07:25 08/28/17 07:25 08/28/17 07:25 08/28/17 07:25 General appearance: Present: no acute distress, well-nourished Results - Labs CBC & Chem 7: 08/23/17 16:13 08/29/17 06:04 Labs: Laboratory Last Values WBC 10.0 K/mm3 (4.5-11.0) 08/23/17 16:13 RBC 4.84 M/mm3 (3.65-5.03) 08/23/17 16:13 Hgb 14.7 gm/dl (10.1-14.3) H 08/23/17 16:13 Hct 41.6 % (30.3-42.9) 08/23/17 16:13 MCV 86 fl (79-97) 08/23/17 16:13 MCH 30 pg (28-32) 08/23/17 16:13 MCHC 35 % (30-34) H 08/23/17 16:13 RDW 16.3 % (13.2-15.2) H 08/23/17 16:13 Plt Count 286 K/mm3 (140-440) 08/23/17 16:13 Lymph % (Auto) 15.1 % (13.4-35.0) 08/23/17 16:13 [place] % (Auto) 12.3 % (0.0-7.3) H 08/23/17 16:13 Eos % (Auto) 1.6 % (0.0-4.3) 08/23/17 16:13 Baso % (Auto) 0.3 % (0.0-1.8) 08/23/17 16:13 Lymph # 1.5 K/mm3 (1.2-5.4) 08/23/17 16:13 [place] # 1.2 K/mm3 (0.0-0.8) H 08/23/17 16:13 Eos # 0.2 K/mm3 (0.0-0.4) 08/23/17 16:13 Baso # 0.0 K/mm3 (0.0-0.1) 08/23/17 16:13 Seg Neutrophils % 70.7 % (40.0-70.0) H 08/23/17 16:13 Seg Neutrophils # 7.1 K/mm3 (1.8-7.7) 08/23/17 16:13 POC ABG pH 7.525 (7.35-7.45) H 08/27/17 11:17 POC ABG pCO2 35.5 (35-45) 08/27/17 11:17 POC ABG pO2 87 (80-105) 08/27/17 11:17 POC ABG HCO3 29.3 08/27/17 11:17 POC ABG Total CO2 30 08/27/17 11:17 POC ABG O2 Sat 98 08/27/17 11:17 POC ABG Base Excess 7 08/27/17 11:17 FiO2 21 % 08/27/17 11:17 Sodium 140 mmol/L (137-145) 08/28/17 07:02 Potassium 3.0 mmol/L (3.6-5.0) L 08/28/17 07:02 Chloride 101.5 mmol/L (98-107) 08/28/17 07:02 Carbon Dioxide 28 mmol/L (22-30) 08/28/17 07:02 Anion Gap 14 mmol/L 08/28/17 07:02 BUN 4 mg/dL (7-17) L 08/28/17 07:02 Creatinine 0.4 mg/dL (0.7-1.2) L 08/28/17 07:02 Estimated GFR > 60 ml/min 08/28/17 07:02 BUN/Creatinine Ratio 10 % 08/28/17 07:02 Glucose 125 mg/dL (65-100) H 08/28/17 07:02 Calcium 7.8 mg/dL (8.4-10.2) L 08/28/17 07:02 Phosphorus 4.50 mg/dL (2.5-4.5) D 08/28/17 07:02 Magnesium 2.00 mg/dL (1.7-2.3) 08/28/17 07:02 Amylase 40 units/L (27-131) 08/23/17 16:13 Lipase 24 units/L (13-60) 08/23/17 16:13 TSH 0.063 mlU/mL (0.270-4.200) L 08/25/17 08:35 Free T4 2.08 ng/dL (0.76-1.46) H 08/25/17 08:35 Free T3 Index 3.1 pg/mL (2.3-4.2) 08/25/17 16:40 HCG, Quant 60639 mIU/mL (0-4) H 08/23/17 16:13 Urine Color [place] (Yellow) 08/23/17 20:45 Urine Turbidity Clear (Clear) 08/23/17 20:45 Urine pH 6.0 (5.0-7.0) 08/23/17 20:45 Ur Specific [place] 1.018 (1.003-1.030) 08/23/17 20:45 Urine Protein 30 mg/dl mg/dL (Negative) 08/23/17 20:45 Urine Glucose (UA) Neg mg/dL (Negative) 08/23/17 20:45 Urine Ketones 80 mg/dL (Negative) 08/23/17 20:45 Urine Blood Sm (Negative) 02/05/18 20:45 Urine Nitrite Neg (Negative) 08/23/17 20:45 Urine Bilirubin Neg (Negative) 08/23/17 20:45 Urine Urobilinogen 4.0 mg/dL (<2.0) 08/23/17 20:45 Ur Leukocyte Esterase Lg (Negative) 08/23/17 20:45 Urine WBC (Auto) 15.0 /HPF (0.0-6.0) H 08/23/17 20:45 Urine RBC (Auto) 5.0 /HPF (0.0-6.0) 08/23/17 20:45 U Epithel Cells (Auto) 6.0 /HPF (0-13.0) 08/23/17 20:45 Urine Bacteria (Auto) 1+ /HPF (Negative) 08/23/17 20:45 Urine Mucus Few /HPF 08/23/17 20:45 Urine Creatinine 55.4 mg/dL (0.1-20.0) H 08/27/17 18:38 Urine Potassium 27.60 mmol/L 08/27/17 18:38 Hepatitis A IgM Ab Non-reactive (NonReactive) 08/23/17 16:13 Hep Bs Antigen Non-reactive (Negative) 08/23/17 16:13 Hep B Core IgM Ab Non-reactive (NonReactive) 08/23/17 16:13 Hepatitis C Antibody Non-reactive (NonReactive) 08/23/17 16:13
[2017-08-28] MEDS: REGLAN IV SCH ×3 (13:19→23:00)
--- NOTE | 2017-08-28 14:00 | Progress Note ---
Assessment and Plan - Patient Problems (1) Hyperemesis gravidarum Current Visit: Yes Status: Acute Plan to address problem: GRINDER SET UP OPERATOR JIG on board On IVFs Per OBGYN (2) Hypokalemia Current Visit: Yes Status: Acute Plan to address problem: Hypokalemia possibly multifactorial secondary to inadequate dietary potassium oral intake worsened in setting of persistent vomiting, hypomagnesemia, and metabolic alkalosis Continue 40 meq PO BID KCL. On IVFs. (3) Dehydration Current Visit: No Status: Acute Plan to address problem: Continue on IV fluids (4) Current Visit: No Status: Acute Qualifiers: Weeks of gestation: less than 8 weeks Qualified Code(s): Z3A.01 - Less than 8 weeks gestation of Plan to address problem: As per GRINDER SET UP OPERATOR JIG Subjective Date of service: 08/28/17 Principal diagnosis: 1) IUP at 7w4d 2) Hyperemesis 3) Morbid Obesity Interval history: On Lactated Ringers. Denies vomiting. Having nausea. Objective - Exam Narrative Exam: General appearance: AAOX3 EENT: ATNC Neck: Present: neck supple Respiratory: CTAB Heart: regular, S1S2 Gastrointestinal: Present: normoactive bowel sounds. Absent: tenderness Integumentary: warm and dry Neurologic: alert and oriented x3 Musculoskeletal: Present: other (no edema to both lower extremities) Psychiatric: mood/affect appropriate, cooperative - Vital Signs Vital signs: Vital Signs - 12hr 08/28/17 08/28/17 08/28/17 04:40 05:21 07:25 Temperature 97.9 F 98.6 F Pulse Rate 58 L 61 59 L Respiratory 20 18 Rate Blood Pressure 115/54 Blood Pressure 126/58 [Right] O2 Sat by Pulse 98 97 95 Oximetry 08/28/17 11:40 Temperature 98.7 F Pulse Rate 77 Respiratory 18 Rate Blood Pressure 103/51 Blood Pressure [Right] O2 Sat by Pulse 94 Oximetry - Lab 08/23/17 16:13 08/28/17 07:02 Most recent lab results Calcium 7.8 mg/dL (8.4-10.2) L 08/28/17 07:02 Phosphorus 4.50 mg/dL (2.5-4.5) D 08/28/17 07:02 Magnesium 2.00 mg/dL (1.7-2.3) 08/28/17 07:02 Urine Creatinine 55.4 mg/dL (0.1-20.0) H 08/27/17 18:38
[2017-08-28] MEDS ORDERED: KCL 40 MEQ in NACL 0.9% 500 ML 500 ML IV ONE (17:00)
[2017-08-28] MEDS ORDERED: MAGNESIUM SULFATE 4GM/100ML 4 GM/100 ML BAG IV PRN (17:17)
[2017-08-28] MEDS ORDERED: MAGNESIUM SULFATE 2GM/50ML 2 GM/50 ML BAG IV PRN (17:17)
[2017-08-28] MEDS ORDERED: KCL 10MEQ/100ML 10 MEQ/100 ML BAG IV PRN (17:17)
[2017-08-28] MEDS ORDERED: MAGNESIUM SULFATE 1 GM in NACL 0.9% 50 ML IV PRN (19:00)
[2017-08-28] MEDS ORDERED: KCL 40 MEQ in NACL 0.45% 1000 ML 1,000 ML IV SCH (21:00)
[2017-08-29] MEDS ORDERED: NORCO 5/325 PO ONE (02:36)
[2017-08-29 06:37] LABS: BUN/Creatinine Ratio 10; Blood Urea Nitrogen 5 mg/dL (7-17); Calcium 7.7 mg/dL (8.4-10.2); Hemolysis Index 0
[2017-08-29] MEDS: VITAMIN B-6 PO SCH ×3 (08:30→23:00)
--- NOTE | 2017-08-29 10:10 | Progress Note ---
Assessment and Plan - Patient Problems (1) Hyperemesis gravidarum Current Visit: Yes Status: Acute Plan to address problem: DATABASE COORDINATOR on board On IVFs Per OBGYN (2) Hypokalemia Current Visit: Yes Status: Acute Plan to address problem: Hypokalemia possibly multifactorial secondary to inadequate dietary potassium oral intake worsened in setting of persistent vomiting, hypomagnesemia, and metabolic alkalosis Continue 40 meq PO BID KCL. She is not taking it on and off as does not want PO Started NS with 40 meq of KCL at 125 mls/hr. (3) Dehydration Current Visit: No Status: Acute Plan to address problem: Continue on IV fluids (4) Current Visit: No Status: Acute Qualifiers: Weeks of gestation: less than 8 weeks Qualified Code(s): Z3A.01 - Less than 8 weeks gestation of Plan to address problem: As per DATABASE COORDINATOR Plan d/w bedside RN. Dayron Cowan MD [phone] Subjective Date of service: 08/29/17 Principal diagnosis: 1) IUP at 7w4d 2) Hyperemesis 3) Morbid Obesity Interval history: Refusing PO KCL. Objective - Exam Narrative Exam: General appearance: AAOX3 EENT: ATNC Neck: Present: neck supple Respiratory: CTAB Heart: regular, S1S2 Gastrointestinal: Present: normoactive bowel sounds. Absent: tenderness Integumentary: warm and dry Neurologic: alert and oriented x3 Musculoskeletal: Present: other (no edema to both lower extremities) Psychiatric: mood/affect appropriate, cooperative - Vital Signs Vital signs: Vital Signs - 12hr 08/29/17 08/29/17 08/29/17 00:30 02:30 04:30 Temperature 98.4 F 98.6 F 98.6 F Pulse Rate 81 64 77 Pulse Rate [ Apical] Respiratory 18 18 16 Rate Respiratory Rate [Lower Abdomen] Blood Pressure 131/84 136/83 131/74 [Right] O2 Sat by Pulse Oximetry 08/29/17 08/29/17 07:20 08:05 Temperature 98.1 F Pulse Rate 70 Pulse Rate [ 74 Apical] Respiratory 18 18 Rate Respiratory 18 Rate [Lower Abdomen] Blood Pressure 118/73 [Right] O2 Sat by Pulse 97 Oximetry - Lab 08/23/17 16:13 08/29/17 06:04 Most recent lab results Calcium 7.7 mg/dL (8.4-10.2) L 08/29/17 06:04 Phosphorus 4.50 mg/dL (2.5-4.5) D 08/28/17 07:02 Magnesium 2.00 mg/dL (1.7-2.3) 08/28/17 07:02 Urine Creatinine 55.4 mg/dL (0.1-20.0) H 08/27/17 18:38
[2017-08-29] MEDS: PROPYLTHIOURACIL PO SCH ×2 (10:40→22:00)
[2017-08-29] MEDS: PEPCID IV SCH ×2 (11:27→22:00)
[2017-08-29] MEDS: PRENATAL VITAMIN PO SCH (11:29)
[2017-08-29] MEDS: K-DUR PO SCH ×2 (11:30→22:08)
[2017-08-29] MEDS: REGLAN IV SCH ×3 (12:31→23:00)
--- NOTE | 2017-08-29 16:31 | Progress Note ---
Hospitalist Physical - Constitutional Vitals: Temp Pulse Resp BP Pulse Ox 98.3 F 77 18 113/76 99 08/29/17 11:31 08/29/17 11:31 08/29/17 11:31 08/29/17 11:31 08/29/17 11:31 General appearance: Present: no acute distress, well-nourished Results - Labs CBC & Chem 7: 08/23/17 16:13 08/29/17 06:04 Labs: Laboratory Last Values WBC 10.0 K/mm3 (4.5-11.0) 08/23/17 16:13 RBC 4.84 M/mm3 (3.65-5.03) 08/23/17 16:13 Hgb 14.7 gm/dl (10.1-14.3) H 08/23/17 16:13 Hct 41.6 % (30.3-42.9) 08/23/17 16:13 MCV 86 fl (79-97) 08/23/17 16:13 MCH 30 pg (28-32) 08/23/17 16:13 MCHC 35 % (30-34) H 08/23/17 16:13 RDW 16.3 % (13.2-15.2) H 08/23/17 16:13 Plt Count 286 K/mm3 (140-440) 08/23/17 16:13 Lymph % (Auto) 15.1 % (13.4-35.0) 08/23/17 16:13 [place] % (Auto) 12.3 % (0.0-7.3) H 08/23/17 16:13 Eos % (Auto) 1.6 % (0.0-4.3) 08/23/17 16:13 Baso % (Auto) 0.3 % (0.0-1.8) 08/23/17 16:13 Lymph # 1.5 K/mm3 (1.2-5.4) 08/23/17 16:13 [place] # 1.2 K/mm3 (0.0-0.8) H 08/23/17 16:13 Eos # 0.2 K/mm3 (0.0-0.4) 08/23/17 16:13 Baso # 0.0 K/mm3 (0.0-0.1) 08/23/17 16:13 Seg Neutrophils % 70.7 % (40.0-70.0) H 08/23/17 16:13 Seg Neutrophils # 7.1 K/mm3 (1.8-7.7) 08/23/17 16:13 POC ABG pH 7.525 (7.35-7.45) H 08/27/17 11:17 POC ABG pCO2 35.5 (35-45) 08/27/17 11:17 POC ABG pO2 87 (80-105) 08/27/17 11:17 POC ABG HCO3 29.3 08/27/17 11:17 POC ABG Total CO2 30 08/27/17 11:17 POC ABG O2 Sat 98 08/27/17 11:17 POC ABG Base Excess 7 08/27/17 11:17 FiO2 21 % 08/27/17 11:17 Sodium 139 mmol/L (137-145) 08/29/17 06:04 Potassium 3.0 mmol/L (3.6-5.0) L 08/29/17 06:04 Chloride 98.4 mmol/L (98-107) 08/29/17 06:04 Carbon Dioxide 27 mmol/L (22-30) 08/29/17 06:04 Anion Gap 17 mmol/L 08/29/17 06:04 BUN 5 mg/dL (7-17) L 08/29/17 06:04 Creatinine 0.5 mg/dL (0.7-1.2) L 08/29/17 06:04 Estimated GFR > 60 ml/min 08/29/17 06:04 BUN/Creatinine Ratio 10 % 08/29/17 06:04 Glucose 106 mg/dL (65-100) H 08/29/17 06:04 Calcium 7.7 mg/dL (8.4-10.2) L 08/29/17 06:04 Phosphorus 4.50 mg/dL (2.5-4.5) D 08/28/17 07:02 Magnesium 2.00 mg/dL (1.7-2.3) 08/28/17 07:02 Amylase 40 units/L (27-131) 08/23/17 16:13 Lipase 24 units/L (13-60) 08/23/17 16:13 TSH 0.063 mlU/mL (0.270-4.200) L 08/25/17 08:35 Free T4 2.08 ng/dL (0.76-1.46) H 08/25/17 08:35 Free T3 Index 3.1 pg/mL (2.3-4.2) 08/25/17 16:40 HCG, Quant 58360 mIU/mL (0-4) H 08/23/17 16:13 Urine Color [place] (Yellow) 08/23/17 20:45 Urine Turbidity Clear (Clear) 08/23/17 20:45 Urine pH 6.0 (5.0-7.0) 08/23/17 20:45 Ur Specific [place] 1.018 (1.003-1.030) 08/23/17 20:45 Urine Protein 30 mg/dl mg/dL (Negative) 08/23/17 20:45 Urine Glucose (UA) Neg mg/dL (Negative) 08/23/17 20:45 Urine Ketones 80 mg/dL (Negative) 08/23/17 20:45 Urine Blood Sm (Negative) 08/23/17 20:45 Urine Nitrite Neg (Negative) 08/23/17 20:45 Urine Bilirubin Neg (Negative) 08/23/17 20:45 Urine Urobilinogen 4.0 mg/dL (<2.0) 08/23/17 20:45 Ur Leukocyte Esterase Lg (Negative) 08/23/17 20:45 Urine WBC (Auto) 15.0 /HPF (0.0-6.0) H 08/23/17 20:45 Urine RBC (Auto) 5.0 /HPF (0.0-6.0) 08/23/17 20:45 U Epithel Cells (Auto) 6.0 /HPF (0-13.0) 08/23/17 20:45 Urine Bacteria (Auto) 1+ /HPF (Negative) 08/23/17 20:45 Urine Mucus Few /HPF 08/23/17 20:45 Urine Creatinine 55.4 mg/dL (0.1-20.0) H 08/27/17 18:38 Urine Potassium 27.60 mmol/L 08/27/17 18:38 Hepatitis A IgM Ab Non-reactive (NonReactive) 08/23/17 16:13 Hep Bs Antigen Non-reactive (Negative) 08/23/17 16:13 Hep B Core IgM Ab Non-reactive (NonReactive) 08/23/17 16:13 Hepatitis C Antibody Non-reactive (NonReactive) 08/23/17 16:13
[2017-08-29] MEDS: NACL 0.9% 1000 ML 1,000 ML with KCL 40 MEQ IV SCH (17:11)
[2017-08-29] MEDS: ZOFRAN IV PRN (17:11)
[2017-08-29] MEDS: TRANSDERM-SCOP TD SCH (17:11)
--- NOTE | 2017-08-29 20:37 | Progress Note ---
Subjective - Subjective Date of service: 08/29/17 Principal diagnosis: 1) IUP at 7w4d 2) Hyperemesis 3) Morbid Obesity Interval history: Patient is still reporting vomiting. Patient reports: appetite normal, nauseated Objective - Vital Signs Latest vital signs: Vital Signs Temp Pulse Pulse Resp Resp BP Pulse Ox 08/29/17 16:20 98.9 F 68 18 137/85 99 08/29/17 11:31 98.3 F 77 18 113/76 99 08/29/17 08:05 98.1 F 70 18 118/73 97 08/29/17 07:20 74 18 18 08/29/17 04:30 98.6 F 77 16 131/74 08/29/17 02:30 98.6 F 64 18 136/83 08/29/17 00:30 98.4 F 81 18 131/84 Intake and Output 08/29/17 08/29/17 08/29/17 06:59 14:59 22:59 Intake Total 300 720 240 Balance 300 720 240 Intake: Oral 480 240 Intake, Free Water 300 240 Other: Total, Intake Amount 240 120 Voiding Method Toilet # Voids Void 1 1 - Exam Abdomen: Present: normal appearance, soft, normal bowel sounds - Labs Labs: Abnormal lab results 08/28/17 08/29/17 Range/Units 22:00 06:04 Potassium 2.8 L* 3.0 L (3.6-5.0) mmol/L BUN 5 L (7-17) mg/dL Creatinine 0.5 L (0.7-1.2) mg/dL Glucose 106 H (65-100) mg/dL Calcium 7.7 L (8.4-10.2) mg/dL
--- NOTE | 2017-08-29 21:41 | Progress Note ---
Assessment and Plan Assessment and plan: 36F with IUP, 7 weeks who pw hyperemesis gravidum hyperemesis gravidum -continue anti-emetics, she is improving Hypokalemia/hypomagnesemia/hypophosphatemia -replete IV, recheck levels in am DVT ppx per primary team History Interval history: denies n/v/d no cp, no sob, no fever, no chills Hospitalist Physical - Physical exam Narrative exam: General appearance: Present: no acute distress, well-nourished - EENT Eyes: Present: PERRL ENT: hearing intact, clear oral mucosa - Neck Neck: Present: supple, normal ROM - Respiratory Respiratory effort: normal Respiratory: bilateral: CTA - Cardiovascular Heart Sounds: Present: S1 & S2. Absent: rub, click - Extremities Extremities: pulses symmetrical, No edema Peripheral Pulses: within normal limits - Abdominal General gastrointestinal: Present: soft, non-tender, non-distended, normal bowel sounds Female genitourinary: Present: normal - Integumentary Integumentary: Present: clear, warm, dry - Musculoskeletal Musculoskeletal: gait normal, strength equal bilaterally - Psychiatric Psychiatric: appropriate mood/affect, intact judgment & insight - Neurologic Neurologic: CNII-XII intact, moves all extremities - Constitutional Vitals: Temp Pulse Resp BP Pulse Ox 98.9 F 68 18 137/85 99 08/29/17 16:20 08/29/17 16:20 08/29/17 16:20 08/29/17 16:20 08/29/17 16:20 General appearance: Present: no acute distress, well-nourished Results - Labs CBC & Chem 7: 08/23/17 16:13 08/29/17 06:04 Labs: Laboratory Last Values WBC 10.0 K/mm3 (4.5-11.0) 08/23/17 16:13 RBC 4.84 M/mm3 (3.65-5.03) 08/23/17 16:13 Hgb 14.7 gm/dl (10.1-14.3) H 08/23/17 16:13 Hct 41.6 % (30.3-42.9) 08/23/17 16:13 MCV 86 fl (79-97) 08/23/17 16:13 MCH 30 pg (28-32) 08/23/17 16:13 MCHC 35 % (30-34) H 08/23/17 16:13 RDW 16.3 % (13.2-15.2) H 08/23/17 16:13 Plt Count 286 K/mm3 (140-440) 08/23/17 16:13 Lymph % (Auto) 15.1 % (13.4-35.0) 08/23/17 16:13 [place] % (Auto) 12.3 % (0.0-7.3) H 08/23/17 16:13 Eos % (Auto) 1.6 % (0.0-4.3) 08/23/17 16:13 Baso % (Auto) 0.3 % (0.0-1.8) 08/23/17 16:13 Lymph # 1.5 K/mm3 (1.2-5.4) 08/23/17 16:13 [place] # 1.2 K/mm3 (0.0-0.8) H 08/23/17 16:13 Eos # 0.2 K/mm3 (0.0-0.4) 08/23/17 16:13 Baso # 0.0 K/mm3 (0.0-0.1) 08/23/17 16:13 Seg Neutrophils % 70.7 % (40.0-70.0) H 08/23/17 16:13 Seg Neutrophils # 7.1 K/mm3 (1.8-7.7) 08/23/17 16:13 POC ABG pH 7.525 (7.35-7.45) H 08/27/17 11:17 POC ABG pCO2 35.5 (35-45) 08/27/17 11:17 POC ABG pO2 87 (80-105) 08/27/17 11:17 POC ABG HCO3 29.3 08/27/17 11:17 POC ABG Total CO2 30 08/27/17 11:17 POC ABG O2 Sat 98 08/27/17 11:17 POC ABG Base Excess 7 08/27/17 11:17 FiO2 21 % 08/27/17 11:17 Sodium 139 mmol/L (137-145) 08/29/17 06:04 Potassium 3.0 mmol/L (3.6-5.0) L 08/29/17 06:04 Chloride 98.4 mmol/L (98-107) 08/29/17 06:04 Carbon Dioxide 27 mmol/L (22-30) 08/29/17 06:04 Anion Gap 17 mmol/L 08/29/17 06:04 BUN 5 mg/dL (7-17) L 08/29/17 06:04 Creatinine 0.5 mg/dL (0.7-1.2) L 08/29/17 06:04 Estimated GFR > 60 ml/min 08/29/17 06:04 BUN/Creatinine Ratio 10 % 08/29/17 06:04 Glucose 106 mg/dL (65-100) H 08/29/17 06:04 Calcium 7.7 mg/dL (8.4-10.2) L 08/29/17 06:04 Phosphorus 4.50 mg/dL (2.5-4.5) D 08/28/17 07:02 Magnesium 2.00 mg/dL (1.7-2.3) 08/28/17 07:02 Amylase 40 units/L (27-131) 08/23/17 16:13 Lipase 24 units/L (13-60) 08/23/17 16:13 TSH 0.063 mlU/mL (0.270-4.200) L 08/25/17 08:35 Free T4 2.08 ng/dL (0.76-1.46) H 08/25/17 08:35 Free T3 Index 3.1 pg/mL (2.3-4.2) 08/25/17 16:40 HCG, Quant 04185 mIU/mL (0-4) H 08/23/17 16:13 Urine Color [place] (Yellow) 08/23/17 20:45 Urine Turbidity Clear (Clear) 08/23/17 20:45 Urine pH 6.0 (5.0-7.0) 08/23/17 20:45 Ur Specific [place] 1.018 (1.003-1.030) 08/23/17 20:45 Urine Protein 30 mg/dl mg/dL (Negative) 08/23/17 20:45 Urine Glucose (UA) Neg mg/dL (Negative) 08/23/17 20:45 Urine Ketones 80 mg/dL (Negative) 08/23/17 20:45 Urine Blood Sm (Negative) 08/23/17 20:45 Urine Nitrite Neg (Negative) 08/23/17 20:45 Urine Bilirubin Neg (Negative) 08/23/17 20:45 Urine Urobilinogen 4.0 mg/dL (<2.0) 08/23/17 20:45 Ur Leukocyte Esterase Lg (Negative) 08/23/17 20:45 Urine WBC (Auto) 15.0 /HPF (0.0-6.0) H 08/23/17 20:45 Urine RBC (Auto) 5.0 /HPF (0.0-6.0) 08/23/17 20:45 U Epithel Cells (Auto) 6.0 /HPF (0-13.0) 08/23/17 20:45 Urine Bacteria (Auto) 1+ /HPF (Negative) 08/23/17 20:45 Urine Mucus Few /HPF 08/23/17 20:45 Urine Creatinine 55.4 mg/dL (0.1-20.0) H 08/27/17 18:38 Urine Potassium 27.60 mmol/L 08/27/17 18:38 Hepatitis A IgM Ab Non-reactive (NonReactive) 08/23/17 16:13 Hep Bs Antigen Non-reactive (Negative) 08/23/17 16:13 Hep B Core IgM Ab Non-reactive (NonReactive) 08/23/17 16:13 Hepatitis C Antibody Non-reactive (NonReactive) 08/23/17 16:13
[2017-08-30 05:11] LABS: BUN/Creatinine Ratio 18; Blood Urea Nitrogen 7 mg/dL (7-17); Calcium 7.6 mg/dL (8.4-10.2); Hemolysis Index 29
[2017-08-30 05:13] LABS: Magnesium 1.7 mg/dL (1.7-2.3)
--- NOTE | 2017-08-30 09:30 | Progress Note ---
Assessment and Plan - Patient Problems (1) Hyperemesis gravidarum Current Visit: Yes Status: Acute Plan to address problem: HAT LACER on board, on reglan, zofran, compazine, IV fluids Follow up recs (2) Hypokalemia Current Visit: Yes Status: Acute Plan to address problem: Hypokalemia possibly multifactorial secondary to inadequate dietary potassium oral intake worsened in setting of persistent vomiting, hypomagnesemia, and metabolic alkalosis Serum potassium level was 2.7 today, yesterday's serum potassium level was 2.5- 3.0 Currently unable to tolerate potassium chloride 40 mEq orally twice a day at this time On 0.9% NS + 40 mEq KCl infusion at 125 ml/hr Repeat BMP today at 1700 Consider GI consult for further evaluation of persistent nausea/vomiting Renal plan discussed with Dr Hilliard Continue supportive therapy (3) Current Visit: Yes Status: Acute Plan to address problem: As per HAT LACER Subjective Date of service: 08/30/17 Principal diagnosis: 1) IUP at 7w4d 2) Hyperemesis 3) Morbid Obesity Interval history: Patient reports she continues to have nausea and vomiting, states she ate two meals yesterday, but was only able to keep down one meal. Patient states she is unable to tolerate potassium pills because of larger size and despite splitting them in half. Patient does report cramping to her abdomen and both legs. NO acute distress. No family at bedside. Objective - Vital Signs Vital signs: Vital Signs - 12hr 08/30/17 08/30/17 08/30/17 00:10 04:40 07:15 Temperature 98.3 F 97.9 F 98.7 F Pulse Rate 83 69 55 L Respiratory 18 18 18 Rate Blood Pressure 132/70 127/70 141/69 [Right] O2 Sat by Pulse 95 96 97 Oximetry - General Appearance General appearance: well-developed (no acute distress) EENT: ATNC Neck: no JVD Respiratory: Present: Other (Lung sounds decreased bilaterally, unlabored ) Cardiology: regular, S1S2 Gastrointestinal: normoactive bowel sounds Integumentary: warm and dry Neurologic: alert and oriented x3 Musculoskeletal: other (trace edema to both lower extremities) Psychiatric: mood/affect appropriate, cooperative - Lab 08/23/17 16:13 08/30/17 04:29 Most recent lab results Calcium 7.6 mg/dL (8.4-10.2) L 08/30/17 04:29 Phosphorus 2.90 mg/dL (2.5-4.5) 08/30/17 04:29 Magnesium 1.70 mg/dL (1.7-2.3) 08/30/17 04:29 Urine Creatinine 55.4 mg/dL (0.1-20.0) H 08/27/17 18:38
[2017-08-30] MEDS: PEPCID IV SCH ×2 (10:05→21:38)
[2017-08-30] MEDS: PRENATAL VITAMIN PO SCH (10:14)
[2017-08-30] MEDS: VITAMIN B-6 PO SCH ×2 (10:14→21:47)
[2017-08-30] MEDS: K-DUR PO SCH (10:14)
[2017-08-30] MEDS: REGLAN IV SCH ×3 (10:14→23:59)
[2017-08-30] MEDS: PROPYLTHIOURACIL PO SCH ×2 (10:14→21:46)
[2017-08-30] MEDS: NACL 0.9% 1000 ML 1,000 ML with KCL 40 MEQ IV SCH (11:50)
[2017-08-30] MEDS: NACL 0.9% IV PRN (11:51)
[2017-08-30] MEDS: KCL IV PRN (11:51)
[2017-08-30] MEDS: ZOFRAN IV PRN ×2 (11:56→21:38)
--- NOTE | 2017-08-30 12:46 | Progress Note ---
Assessment and Plan A/P HD# 7 for hyperemesis and hypokalemia seen by nephrology still replacing in IV fluids repeat bmp tonight continue supportive therapy Subjective - Subjective Date of service: 08/30/17 Principal diagnosis: 1) IUP at 7w4d 2) Hyperemesis 3) Morbid Obesity Patient reports: no new complaints (continued nausea. Tolerating small amount of solids), no loss of fluid, no vaginal bleeding, no contractions Objective - Vital Signs Vital Signs: Vital Signs - 12hr 08/30/17 08/30/17 08/30/17 04:40 07:15 11:55 Temperature 97.9 F 98.7 F 97.5 F L Pulse Rate 69 55 L 68 Respiratory 18 18 20 Rate Blood Pressure 127/70 141/69 149/81 [Right] O2 Sat by Pulse 96 97 96 Oximetry - Exam Breasts: normal Cardiovascular: Regular rate, Normal S1 Lungs: Clear to auscultation, Normal air movement Abdomen: Present: soft, normal bowel sounds. Absent: distention, tenderness, guarding Vulva: both: normal Uterus: Present: normal, firm - Labs Labs: Abnormal Labs 08/23/17 08/23/17 08/23/17 16:13 16:13 16:13 Hgb 14.7 H MCHC 35 H RDW 16.3 H [place] % (Auto) 12.3 H [place] # 1.2 H Seg Neutrophils % 70.7 H POC ABG pH Sodium Potassium Chloride Carbon Dioxide BUN Creatinine Glucose Calcium Phosphorus Magnesium TSH 0.086 L Free T4 HCG, Quant 02828 H Urine WBC (Auto) Urine Creatinine 08/23/17 08/23/17 08/24/17 16:13 20:45 14:50 Hgb MCHC RDW [place] % (Auto) [place] # Seg Neutrophils % POC ABG pH Sodium 136 L Potassium 2.6 L* 3.3 L D Chloride 89.2 L Carbon Dioxide BUN 6 L Creatinine 0.6 L 0.5 L Glucose Calcium 7.9 L D Phosphorus Magnesium TSH Free T4 HCG, Quant Urine WBC (Auto) 15.0 H Urine Creatinine 08/25/17 08/25/17 08/25/17 08:35 08:35 12:33 Hgb MCHC RDW [place] % (Auto) [place] # Seg Neutrophils % POC ABG pH Sodium Potassium 2.4 L* D 2.8 L* Chloride 110.9 H Carbon Dioxide 18 L D BUN 3 L Creatinine 0.3 L Glucose 136 H Calcium 6.2 L D Phosphorus Magnesium TSH 0.063 L Free T4 2.08 H HCG, Quant Urine WBC (Auto) Urine Creatinine 08/25/17 08/25/17 08/26/17 16:40 22:41 07:02 Hgb MCH RDW [place] % (Auto) [place] # Seg Neutrophils % POC ABG pH Sodium Potassium 3.0 L 2.9 L* 2.9 L* Chloride Carbon Dioxide BUN Creatinine Glucose Calcium Phosphorus Magnesium TSH Free T4 HCG, Quant Urine WBC (Auto) Urine Creatinine 08/26/17 08/27/17 08/27/17 12:21 03:00 11:17 Hgb [facility] RDW [place] % (Auto) [place] # Seg Neutrophils % POC ABG pH 7.525 H Sodium Potassium 2.6 L* Chloride Carbon Dioxide BUN 2 L Creatinine 0.4 L Glucose 142 H Calcium 7.8 L D Phosphorus Magnesium 1.50 L TSH Free T4 HCG, Quant Urine WBC (Auto) Urine Creatinine 08/27/17 08/27/17 08/27/17 18:35 18:38 20:56 Hgb [facility] RDW [place] % (Auto) [place] # Seg Neutrophils % POC ABG pH Sodium Potassium 2.4 L* 2.8 L* Chloride Carbon Dioxide BUN 4 L Creatinine 0.5 L Glucose 149 H Calcium 7.7 L Phosphorus 2.00 L Magnesium TSH Free T4 HCG, Quant Urine WBC (Auto) Urine Creatinine 55.4 H 08/28/17 08/28/17 08/28/17 07:02 15:32 22:00 Hgb [facility] RDW [place] % (Auto) [place] # Seg Neutrophils % POC ABG pH Sodium Potassium 3.0 L 2.5 L* 2.8 L* Chloride Carbon Dioxide BUN 4 L Creatinine 0.4 L Glucose 125 H Calcium 7.8 L Phosphorus Magnesium TSH Free T4 HCG, Quant Urine WBC (Auto) Urine Creatinine 08/29/17 08/29/17 08/30/17 06:04 21:34 04:29 Hgb [facility] RDW [place] % (Auto) [place] # Seg Neutrophils % POC ABG pH Sodium Potassium 3.0 L 2.5 L* 2.7 L* Chloride Carbon Dioxide BUN 5 L Creatinine 0.5 L 0.4 L Glucose 106 H Calcium 7.7 L 7.6 L Phosphorus Magnesium TSH Free T4 HCG, Quant Urine WBC (Auto) Urine Creatinine Laboratory Results - last 24 hr 08/29/17 08/30/17 08/30/17 21:34 04:29 04:29 Sodium 138 Potassium 2.5 L* 2.7 L* Chloride 100.0 Carbon Dioxide 28 Anion Gap 13 BUN 7 Creatinine 0.4 L Estimated GFR > 60 BUN/Creatinine Ratio 18 Glucose 98 Calcium 7.6 L Phosphorus 2.90 Magnesium 1.70
[2017-08-30 18:41] LABS: BUN/Creatinine Ratio 15; Blood Urea Nitrogen 6 mg/dL (7-17); Calcium 7.7 mg/dL (8.4-10.2); Hemolysis Index 40
[2017-08-30] MEDS: KCL 40 MEQ in NACL 0.9% 500 ML 500 ML IV PRN (21:38)
[2017-08-30] MEDS: POTASSIUM CHLORIDE PO SCH (21:47)
--- NOTE | 2017-08-30 22:02 | Progress Note ---
Assessment and Plan Assessment and plan: 36F with IUP, 8 weeks who pw hyperemesis gravidum hyperemesis gravidum -continue anti-emetics, she is improving Hypokalemia/hypomagnesemia/hypophosphatemia -Continue to replete K PO and IV -change PO to KCl packets as it may be easier to keep down -Mg level and Phos level now normalized Patient may be dc from medicine stand point if K is >3 and she is tolerating Oral K supplements DVT ppx per primary team History Interval history: states that she only vomits when she takes K-dur tabs, so therefore she does not want to take it anymore denies n/v/d no cp, no sob, no fever, no chills Hospitalist Physical - Physical exam Narrative exam: General appearance: Present: no acute distress, well-nourished - EENT Eyes: Present: PERRL ENT: hearing intact, clear oral mucosa - Neck Neck: Present: supple, normal ROM - Respiratory Respiratory effort: normal Respiratory: bilateral: CTA - Cardiovascular Heart Sounds: Present: S1 & S2. Absent: rub, click - Extremities Extremities: pulses symmetrical, No edema Peripheral Pulses: within normal limits - Abdominal General gastrointestinal: Present: soft, non-tender, non-distended, normal bowel sounds Female genitourinary: Present: normal - Integumentary Integumentary: Present: clear, warm, dry - Musculoskeletal Musculoskeletal: gait normal, strength equal bilaterally - Psychiatric Psychiatric: appropriate mood/affect, intact judgment & insight - Neurologic Neurologic: CNII-XII intact, moves all extremities - Constitutional Vitals: Temp Pulse Resp BP Pulse Ox 98.7 F 83 20 140/85 96 08/30/17 21:15 08/30/17 21:15 08/30/17 21:15 08/30/17 21:15 08/30/17 21:15 General appearance: Present: no acute distress, well-nourished Results - Labs CBC & Chem 7: 08/23/17 16:13 08/30/17 17:53 Labs: Laboratory Last Values WBC 10.0 K/mm3 (4.5-11.0) 08/23/17 16:13 RBC 4.84 M/mm3 (3.65-5.03) 08/23/17 16:13 Hgb 14.7 gm/dl (10.1-14.3) H 08/23/17 16:13 Hct 41.6 % (30.3-42.9) 08/23/17 16:13 MCV 86 fl (79-97) 08/23/17 16:13 MCH 30 pg (28-32) 08/23/17 16:13 MCHC 35 % (30-34) H 08/23/17 16:13 RDW 16.3 % (13.2-15.2) H 08/23/17 16:13 Plt Count 286 K/mm3 (140-440) 08/23/17 16:13 Lymph % (Auto) 15.1 % (13.4-35.0) 08/23/17 16:13 [place] % (Auto) 12.3 % (0.0-7.3) H 08/23/17 16:13 Eos % (Auto) 1.6 % (0.0-4.3) 08/23/17 16:13 Baso % (Auto) 0.3 % (0.0-1.8) 08/23/17 16:13 Lymph # 1.5 K/mm3 (1.2-5.4) 08/23/17 16:13 [place] # 1.2 K/mm3 (0.0-0.8) H 08/23/17 16:13 Eos # 0.2 K/mm3 (0.0-0.4) 08/23/17 16:13 Baso # 0.0 K/mm3 (0.0-0.1) 08/23/17 16:13 Seg Neutrophils % 70.7 % (40.0-70.0) H 08/23/17 16:13 Seg Neutrophils # 7.1 K/mm3 (1.8-7.7) 08/23/17 16:13 POC ABG pH 7.525 (7.35-7.45) H 08/27/17 11:17 POC ABG pCO2 35.5 (35-45) 08/27/17 11:17 POC ABG pO2 87 (80-105) 08/27/17 11:17 POC ABG HCO3 29.3 08/27/17 11:17 POC ABG Total CO2 30 08/27/17 11:17 POC ABG O2 Sat 98 08/27/17 11:17 POC ABG Base Excess 7 08/27/17 11:17 FiO2 21 % 08/27/17 11:17 Sodium 141 mmol/L (137-145) 08/30/17 17:53 Potassium 3.0 mmol/L (3.6-5.0) L 08/30/17 17:53 Chloride 100.5 mmol/L (98-107) 08/30/17 17:53 Carbon Dioxide 27 mmol/L (22-30) 08/30/17 17:53 Anion Gap 17 mmol/L 08/30/17 17:53 BUN 6 mg/dL (7-17) L 08/30/17 17:53 Creatinine 0.4 mg/dL (0.7-1.2) L 08/30/17 17:53 Estimated GFR > 60 ml/min 08/30/17 17:53 BUN/Creatinine Ratio 15 % 08/30/17 17:53 Glucose 113 mg/dL (65-100) H 08/30/17 17:53 Calcium 7.7 mg/dL (8.4-10.2) L 08/30/17 17:53 Phosphorus 2.90 mg/dL (2.5-4.5) 08/30/17 04:29 Magnesium 1.70 mg/dL (1.7-2.3) 08/30/17 04:29 Amylase 40 units/L (27-131) 08/23/17 16:13 Lipase 24 units/L (13-60) 08/23/17 16:13 TSH 0.063 mlU/mL (0.270-4.200) L 08/25/17 08:35 Free T4 2.08 ng/dL (0.76-1.46) H 08/25/17 08:35 Free T3 Index 3.1 pg/mL (2.3-4.2) 08/25/17 16:40 HCG, Quant 49653 mIU/mL (0-4) H 08/23/17 16:13 Urine Color [place] (Yellow) 08/23/17 20:45 Urine Turbidity Clear (Clear) 08/23/17 20:45 Urine pH 6.0 (5.0-7.0) 08/23/17 20:45 Ur Specific [place] 1.018 (1.003-1.030) 08/23/17 20:45 Urine Protein 30 mg/dl mg/dL (Negative) 08/23/17 20:45 Urine Glucose (UA) Neg mg/dL (Negative) 08/23/17 20:45 Urine Ketones 80 mg/dL (Negative) 08/23/17 20:45 Urine Blood Sm (Negative) 08/23/17 20:45 Urine Nitrite Neg (Negative) 08/23/17 20:45 Urine Bilirubin Neg (Negative) 08/23/17 20:45 Urine Urobilinogen 4.0 mg/dL (<2.0) 08/23/17 20:45 Ur Leukocyte Esterase Lg (Negative) 08/23/17 20:45 Urine WBC (Auto) 15.0 /HPF (0.0-6.0) H 08/23/17 20:45 Urine RBC (Auto) 5.0 /HPF (0.0-6.0) 08/23/17 20:45 U Epithel Cells (Auto) 6.0 /HPF (0-13.0) 08/23/17 20:45 Urine Bacteria (Auto) 1+ /HPF (Negative) 08/23/17 20:45 Urine Mucus Few /HPF 08/23/17 20:45 Urine Creatinine 55.4 mg/dL (0.1-20.0) H 08/27/17 18:38 Urine Potassium 27.60 mmol/L 08/27/17 18:38 Hepatitis A IgM Ab Non-reactive (NonReactive) 08/23/17 16:13 Hep Bs Antigen Non-reactive (Negative) 08/23/17 16:13 Hep B Core IgM Ab Non-reactive (NonReactive) 08/23/17 16:13 Hepatitis C Antibody Non-reactive (NonReactive) 08/23/17 16:13
[2017-08-31] MEDS: REGLAN IV SCH ×2 (05:54→23:30)
[2017-08-31 06:01] LABS: BUN/Creatinine Ratio 15; Blood Urea Nitrogen 6 mg/dL (7-17); Calcium 7.9 mg/dL (8.4-10.2); Hemolysis Index 8
[2017-08-31] MEDS: NACL 0.9% 1000 ML 1,000 ML with KCL 40 MEQ IV SCH (06:20)
[2017-08-31] MEDS: KCL 40 MEQ in NACL 0.9% 500 ML 500 ML IV PRN ×2 (06:25→16:39)
[2017-08-31] MEDS: POTASSIUM CHLORIDE PO SCH ×2 (06:28→18:23)
[2017-08-31] MEDS: VITAMIN B-6 PO SCH ×3 (09:01→21:14)
--- NOTE | 2017-08-31 09:57 | Progress Note ---
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 jean baptiste compazine Follow up recs (2) Hypokalemia Current Visit: Yes Status: Acute Plan to address problem: Hypokalemia possibly multifactorial secondary to inadequate dietary potassium oral intake worsened in setting of persistent vomiting, hypomagnesemia, and metabolic alkalosis Serum potassium level was 3.0 today, yesterday's serum potassium level was 2.7- 3.0 Continue on potassium chloride 40 mEq (packet) orally twice a day Discontinue 0.9% NS + 40 mEq KCl infusion at 125 ml/hr Repeat serum potassium level today at 1700 Consider GI consult for further evaluation if continues to have persistent nausea/vomiting Strict intake and output Renal plan discussed with Dr Hilliard Continue supportive therapy (3) Current Visit: Yes Status: Acute Plan to address problem: As per OIL DISTRIBUTOR Subjective Date of service: 08/31/17 Principal diagnosis: 1) IUP at 7w4d 2) Hyperemesis 3) Morbid Obesity Interval history: Patient reports she continues to have nausea and vomiting, but is able to keep down some of her food, states potassium chloride tablets switched to packet form and she has kept it down so far. Patient also reports having intermittent feeling of "knots" in her stomach that causes cramping. Patient states she notified her nurse last night who will notify primary team. Pateint reports she has been urinating a lot, advised patient to save urine for measurement, states her nurse brought in a toilet hat. No acute distress. No family at bedside. Objective - Vital Signs Vital signs: Vital Signs - 12hr 08/30/17 08/31/17 23:43 04:45 Temperature 98.5 F 98.0 F Pulse Rate 71 76 Respiratory 18 18 Rate Blood Pressure 130/60 150/77 [Right] O2 Sat by Pulse 96 96 Oximetry - General Appearance General appearance: well-developed (no acute distress) EENT: ATNC Neck: no JVD Respiratory: Present: Clear to Ascultation Cardiology: regular, S1S2 Gastrointestinal: normoactive bowel sounds, other (intermittent abdominal cramping) Integumentary: warm and dry Neurologic: alert and oriented x3 Musculoskeletal: other (trace edema to both lower extremities) Psychiatric: mood/affect appropriate, cooperative - Lab 02/05/18 16:13 08/31/17 04:10 Most recent lab results Calcium 7.9 mg/dL (8.4-10.2) L 08/31/17 04:10 Phosphorus 2.90 mg/dL (2.5-4.5) 08/30/17 04:29 Magnesium 1.70 mg/dL (1.7-2.3) 08/31/17 04:10 Urine Creatinine 55.4 mg/dL (0.1-20.0) H 08/27/17 18:38
[2017-08-31] MEDS: PROPYLTHIOURACIL PO SCH ×2 (11:24→21:13)
[2017-08-31] MEDS: PEPCID IV SCH ×2 (11:25→21:11)
--- NOTE | 2017-08-31 13:26 | Progress Note ---
Assessment and Plan - Patient Problems (1) Hyperemesis gravidarum Current Visit: Yes Status: Acute Plan to address problem: Awaiting the results of the basic metabolic panel Overall the patient is demonstrating improvement in her symptoms Subjective - Subjective Date of service: 08/31/17 Principal diagnosis: 1) IUP at 7w4d 2) Hyperemesis 3) Morbid Obesity Interval history: Patient complains of feeling weak today. She has had decrease in her emesis. The patient is currently completing a potassium replacement intravenously. She is scheduled to have her electrolytes evaluated after the potassium replacement. Patient reports: no new complaints (continued nausea. Tolerating small amount of solids), no loss of fluid, no vaginal bleeding, no contractions Objective - Vital Signs Vital Signs: Vital Signs - 12hr 08/31/17 04:45 Temperature 98.0 F Pulse Rate 76 Respiratory 18 Rate Blood Pressure 150/77 [Right] O2 Sat by Pulse 96 Oximetry - Labs Labs: Abnormal Labs 08/23/17 08/23/17 08/23/17 16:13 16:13 16:13 Hgb 14.7 H MCHC 35 H RDW 16.3 H [place] % (Auto) 12.3 H [place] # 1.2 H Seg Neutrophils % 70.7 H POC ABG pH Sodium Potassium Chloride Carbon Dioxide BUN Creatinine Glucose Calcium Phosphorus Magnesium TSH 0.086 L Free T4 HCG, Quant 05382 H Urine WBC (Auto) Urine Creatinine 08/23/17 08/23/17 08/24/17 16:13 20:45 14:50 Hgb MCHC RDW [place] % (Auto) [place] # Seg Neutrophils % POC ABG pH Sodium 136 L Potassium 2.6 L* 3.3 L D Chloride 89.2 L Carbon Dioxide BUN 6 L Creatinine 0.6 L 0.5 L Glucose Calcium 7.9 L D Phosphorus Magnesium TSH Free T4 HCG, Quant Urine WBC (Auto) 15.0 H Urine Creatinine 08/25/17 08/25/17 08/25/17 08:35 08:35 12:33 Hgb MCHC RDW [place] % (Auto) [place] # Seg Neutrophils % POC ABG pH Sodium Potassium 2.4 L* D 2.8 L* Chloride 110.9 H Carbon Dioxide 18 L D BUN 3 L Creatinine 0.3 L Glucose 136 H Calcium 6.2 L D Phosphorus Magnesium TSH 0.063 L Free T4 2.08 H HCG, Quant Urine WBC (Auto) Urine Creatinine 08/25/17 08/25/17 08/26/17 16:40 22:41 07:02 Hgb [facility] RDW [place] % (Auto) [place] # Seg Neutrophils % POC ABG pH Sodium Potassium 3.0 L 2.9 L* 2.9 L* Chloride Carbon Dioxide BUN Creatinine Glucose Calcium Phosphorus Magnesium TSH Free T4 HCG, Quant Urine WBC (Auto) Urine Creatinine 08/26/17 08/27/17 08/27/17 12:21 03:00 11:17 Hgb [facility] RDW [place] % (Auto) [place] # Seg Neutrophils % POC ABG pH 7.525 H Sodium Potassium 2.6 L* Chloride Carbon Dioxide BUN 2 L Creatinine 0.4 L Glucose 142 H Calcium 7.8 L D Phosphorus Magnesium 1.50 L TSH Free T4 HCG, Quant Urine WBC (Auto) Urine Creatinine 08/27/17 08/27/17 08/27/17 18:35 18:38 20:56 Hgb [facility] RDW [place] % (Auto) [place] # Seg Neutrophils % POC ABG pH Sodium Potassium 2.4 L* 2.8 L* Chloride Carbon Dioxide BUN 4 L Creatinine 0.5 L Glucose 149 H Calcium 7.7 L Phosphorus 2.00 L Magnesium TSH Free T4 HCG, Quant Urine WBC (Auto) Urine Creatinine 55.4 H 08/28/17 08/28/17 08/28/17 07:02 15:32 22:00 Hgb [facility] RDW [place] % (Auto) [place] # Seg Neutrophils % POC ABG pH Sodium Potassium 3.0 L 2.5 L* 2.8 L* Chloride Carbon Dioxide BUN 4 L Creatinine 0.4 L Glucose 125 H Calcium 7.8 L Phosphorus Magnesium TSH Free T4 HCG, Quant Urine WBC (Auto) Urine Creatinine 08/29/17 08/29/17 08/30/17 06:04 21:34 04:29 Hgb [facility] RDW [place] % (Auto) [place] # Seg Neutrophils % POC ABG pH Sodium Potassium 3.0 L 2.5 L* 2.7 L* Chloride Carbon Dioxide BUN 5 L Creatinine 0.5 L 0.4 L Glucose 106 H Calcium 7.7 L 7.6 L Phosphorus Magnesium TSH Free T4 HCG, Quant Urine WBC (Auto) Urine Creatinine 08/30/17 08/30/17 08/31/17 17:53 22:37 04:10 Hgb MCHC RDW [place] % (Auto) [place] # Seg Neutrophils % POC ABG pH Sodium Potassium 3.0 L 3.0 L 3.0 L Chloride Carbon Dioxide BUN 6 L 6 L Creatinine 0.4 L 0.4 L Glucose 113 H 140 H Calcium 7.7 L 7.9 L Phosphorus Magnesium TSH Free T4 HCG, Quant Urine WBC (Auto) Urine Creatinine Laboratory Results - last 24 hr 08/30/17 08/30/17 08/31/17 17:53 22:37 04:10 Sodium 141 141 Potassium 3.0 L 3.0 L 3.0 L Chloride 100.5 101.5 Carbon Dioxide 27 25 Anion Gap 17 18 BUN 6 L 6 L Creatinine 0.4 L 0.4 L Estimated GFR > 60 > 60 BUN/Creatinine Ratio 15 15 Glucose 113 H 140 H Calcium 7.7 L 7.9 L Magnesium 1.70
--- NOTE | 2017-08-31 15:58 | Progress Note ---
Assessment and Plan Assessment and plan: --Severe hypokalemia; Replenish per protocol and monitor levels, check magnesium levels Patient is unable to tolerate oral KCl due to hyperemesis Continue to IV potassium chloride, nephrology following --Hyperemesis gravidarum; continue supportive care Management per COMMERCIAL CREDIT SPECIALIST --Early 8 weeks / management per COMMERCIAL CREDIT SPECIALIST --Morbid obesity; BMI of 45.1 Counseling done --DVT prophylaxis; per primary team Plan of care discussed with the patient and her nurse Patient may be discharged on oral potassium chloride when critically stable History Interval history: She'll seen and evaluated in her room this afternoon Medical records reviewed I discussed with the patient's nurse, no new events reported Except for severe hypokalemia Patient is not tolerating oral KCl Patient has no new complaints, vital signs reviewed Hospitalist Physical - Constitutional Vitals: Temp Pulse Resp BP Pulse Ox 97.5 F L 64 20 123/67 96 08/31/17 12:15 08/31/17 12:15 08/31/17 08:10 08/31/17 12:15 08/31/17 04:45 General appearance: Present: no acute distress, well-nourished, obese (morbidly obese) - EENT Eyes: Present: PERRL, EOM intact - Neck Neck: Present: supple, normal ROM - Respiratory Respiratory effort: normal Respiratory: bilateral: diminished, negative: rales, rhonchi, wheezing - Cardiovascular Rhythm: regular Heart Sounds: Present: S1 & S2 - Extremities Extremities: no ischemia, No edema - Abdominal General gastrointestinal: soft, non-tender, non-distended, normal bowel sounds - Integumentary Integumentary: Present: clear, warm - Psychiatric Psychiatric: appropriate mood/affect, cooperative - Neurologic Neurologic: CNII-XII intact, moves all extremities Results - Labs CBC & Chem 7: 08/23/17 16:13 08/31/17 14:47 Labs: Laboratory Last Values WBC 10.0 K/mm3 (4.5-11.0) 08/23/17 16:13 RBC 4.84 M/mm3 (3.65-5.03) 08/23/17 16:13 Hgb 14.7 gm/dl (10.1-14.3) H 08/23/17 16:13 Hct 41.6 % (30.3-42.9) 08/23/17 16:13 MCV 86 fl (79-97) 08/23/17 16:13 MCH 30 pg (28-32) 08/23/17 16:13 MCHC 35 % (30-34) H 08/23/17 16:13 RDW 16.3 % (13.2-15.2) H 08/23/17 16:13 Plt Count 286 K/mm3 (140-440) 08/23/17 16:13 Lymph % (Auto) 15.1 % (13.4-35.0) 08/23/17 16:13 [place] % (Auto) 12.3 % (0.0-7.3) H 08/23/17 16:13 Eos % (Auto) 1.6 % (0.0-4.3) 08/23/17 16:13 Baso % (Auto) 0.3 % (0.0-1.8) 08/23/17 16:13 Lymph # 1.5 K/mm3 (1.2-5.4) 08/23/17 16:13 [place] # 1.2 K/mm3 (0.0-0.8) H 08/23/17 16:13 Eos # 0.2 K/mm3 (0.0-0.4) 08/23/17 16:13 Baso # 0.0 K/mm3 (0.0-0.1) 08/23/17 16:13 Seg Neutrophils % 70.7 % (40.0-70.0) H 08/23/17 16:13 Seg Neutrophils # 7.1 K/mm3 (1.8-7.7) 08/23/17 16:13 POC ABG pH 7.525 (7.35-7.45) H 08/27/17 11:17 POC ABG pCO2 35.5 (35-45) 08/27/17 11:17 POC ABG pO2 87 (80-105) 08/27/17 11:17 POC ABG HCO3 29.3 08/27/17 11:17 POC ABG Total CO2 30 08/27/17 11:17 POC ABG O2 Sat 98 08/27/17 11:17 POC ABG Base Excess 7 08/27/17 11:17 FiO2 21 % 08/27/17 11:17 Sodium 141 mmol/L (137-145) 08/31/17 04:10 Potassium 2.7 mmol/L (3.6-5.0) L* 08/31/17 14:47 Chloride 101.5 mmol/L (98-107) 08/31/17 04:10 Carbon Dioxide 25 mmol/L (22-30) 08/31/17 04:10 Anion Gap 18 mmol/L 08/31/17 04:10 BUN 6 mg/dL (7-17) L 08/31/17 04:10 Creatinine 0.4 mg/dL (0.7-1.2) L 08/31/17 04:10 Estimated GFR > 60 ml/min 08/31/17 04:10 BUN/Creatinine Ratio 15 % 08/31/17 04:10 Glucose 140 mg/dL (65-100) H 08/31/17 04:10 Calcium 7.9 mg/dL (8.4-10.2) L 08/31/17 04:10 Phosphorus 2.90 mg/dL (2.5-4.5) 08/30/17 04:29 Magnesium 1.70 mg/dL (1.7-2.3) 08/31/17 04:10 Amylase 40 units/L (27-131) 08/23/17 16:13 Lipase 24 units/L (13-60) 08/23/17 16:13 TSH 0.063 mlU/mL (0.270-4.200) L 08/25/17 08:35 Free T4 2.08 ng/dL (0.76-1.46) H 08/25/17 08:35 Free T3 Index 3.1 pg/mL (2.3-4.2) 08/25/17 16:40 HCG, Quant 10562 mIU/mL (0-4) H 08/23/17 16:13 Urine Color [place] (Yellow) 08/23/17 20:45 Urine Turbidity Clear (Clear) 08/23/17 20:45 Urine pH 6.0 (5.0-7.0) 08/23/17 20:45 Ur Specific [place] 1.018 (1.003-1.030) 08/23/17 20:45 Urine Protein 30 mg/dl mg/dL (Negative) 08/23/17 20:45 Urine Glucose (UA) Neg mg/dL (Negative) 08/23/17 20:45 Urine Ketones 80 mg/dL (Negative) 08/23/17 20:45 Urine Blood Sm (Negative) 08/23/17 20:45 Urine Nitrite Neg (Negative) 08/23/17 20:45 Urine Bilirubin Neg (Negative) 08/23/17 20:45 Urine Urobilinogen 4.0 mg/dL (<2.0) 08/23/17 20:45 Ur Leukocyte Esterase Lg (Negative) 08/23/17 20:45 Urine WBC (Auto) 15.0 /HPF (0.0-6.0) H 08/23/17 20:45 Urine RBC (Auto) 5.0 /HPF (0.0-6.0) 08/23/17 20:45 U Epithel Cells (Auto) 6.0 /HPF (0-13.0) 08/23/17 20:45 Urine Bacteria (Auto) 1+ /HPF (Negative) 08/23/17 20:45 Urine Mucus Few /HPF 08/23/17 20:45 Urine Creatinine 55.4 mg/dL (0.1-20.0) H 08/27/17 18:38 Urine Potassium 27.60 mmol/L 08/27/17 18:38 Hepatitis A IgM Ab Non-reactive (NonReactive) 08/23/17 16:13 Hep Bs Antigen Non-reactive (Negative) 08/23/17 16:13 Hep B Core IgM Ab Non-reactive (NonReactive) 08/23/17 16:13 Hepatitis C Antibody Non-reactive (NonReactive) 08/23/17 16:13
[2017-08-31] MEDS: ZOFRAN IV PRN (21:21)
[2017-09-01] MEDS: NACL 0.9% IV PRN (01:05)
[2017-09-01] MEDS: KCL IV PRN (01:05)
[2017-09-01 05:35] LABS: BUN/Creatinine Ratio 15; Blood Urea Nitrogen 6 mg/dL (7-17); Calcium 7.8 mg/dL (8.4-10.2); Hemolysis Index 5
[2017-09-01] MEDS: POTASSIUM CHLORIDE PO SCH ×2 (06:27→18:23)
--- NOTE | 2017-09-01 10:27 | Progress Note ---
Assessment and Plan A: IUP at 8w4d, Hyperemesis, Persistent Hypokalemia, Morbid Obesity P: GI consult today, CMP now per GI; continue potassium repletion, Continue to monitor clinically. Subjective - Subjective Date of service: 09/01/17 Principal diagnosis: 1) IUP at 8w4d 2) Hyperemesis 3) Severe hypokalemia 4) Morbid Obesity Interval history: Emesis x1 yesterday. Pt reports near constant nausea despite IV anti-emetics. Pt now reports burning sensation and cramping with bowel movements for the past 3-4 days. Tolerating potassium packets which cause nausea but not emesis at this time. No obstetric complaints. Patient reports: no new complaints (continued nausea. Tolerating small amount of solids), no loss of fluid, no vaginal bleeding, no contractions Objective - Vital Signs Vital Signs: Vital Signs - 12hr 09/01/17 09/01/17 09/01/17 00:30 04:25 08:40 Temperature 98.1 F 98.2 F 98.6 F Pulse Rate 76 74 95 H Respiratory 20 20 20 Rate Blood Pressure 148/68 141/68 132/78 [Right] O2 Sat by Pulse 96 95 95 Oximetry - Exam Breasts: deferred Cardiovascular: Regular rate Lungs: Clear to auscultation Abdomen: Present: soft Extremities: edema - Labs Labs: Abnormal Labs 08/23/17 08/23/17 08/23/17 16:13 16:13 16:13 Hgb 14.7 H MCHC 35 H RDW 16.3 H [place] % (Auto) 12.3 H [place] # 1.2 H Seg Neutrophils % 70.7 H POC ABG pH Sodium Potassium Chloride Carbon Dioxide BUN Creatinine Glucose Calcium Phosphorus Magnesium TSH 0.086 L Free T4 HCG, Quant 08716 H Urine WBC (Auto) Urine Creatinine 08/23/17 08/23/17 08/24/17 16:13 20:45 14:50 Hgb MCHC RDW [place] % (Auto) [place] # Seg Neutrophils % POC ABG pH Sodium 136 L Potassium 2.6 L* 3.3 L D Chloride 89.2 L Carbon Dioxide BUN 6 L Creatinine 0.6 L 0.5 L Glucose Calcium 7.9 L D Phosphorus Magnesium TSH Free T4 HCG, Quant Urine WBC (Auto) 15.0 H Urine Creatinine 08/25/17 08/25/17 08/25/17 08:35 08:35 12:33 Hgb MCHC RDW [place] % (Auto) [place] # Seg Neutrophils % POC ABG pH Sodium Potassium 2.4 L* D 2.8 L* Chloride 110.9 H Carbon Dioxide 18 L D BUN 3 L Creatinine 0.3 L Glucose 136 H Calcium 6.2 L D Phosphorus Magnesium TSH 0.063 L Free T4 2.08 H HCG, Quant Urine WBC (Auto) Urine Creatinine 08/25/17 08/25/17 08/26/17 16:40 22:41 07:02 Hgb MCH RDW [place] % (Auto) [place] # Seg Neutrophils % POC ABG pH Sodium Potassium 3.0 L 2.9 L* 2.9 L* Chloride Carbon Dioxide BUN Creatinine Glucose Calcium Phosphorus Magnesium TSH Free T4 HCG, Quant Urine WBC (Auto) Urine Creatinine 08/26/17 08/27/17 08/27/17 12:21 03:00 11:17 Hgb [facility] RDW [place] % (Auto) [place] # Seg Neutrophils % POC ABG pH 7.525 H Sodium Potassium 2.6 L* Chloride Carbon Dioxide BUN 2 L Creatinine 0.4 L Glucose 142 H Calcium 7.8 L D Phosphorus Magnesium 1.50 L TSH Free T4 HCG, Quant Urine WBC (Auto) Urine Creatinine 08/27/17 08/27/17 08/27/17 18:35 18:38 20:56 Hgb [facility] RDW [place] % (Auto) [place] # Seg Neutrophils % POC ABG pH Sodium Potassium 2.4 L* 2.8 L* Chloride Carbon Dioxide BUN 4 L Creatinine 0.5 L Glucose 149 H Calcium 7.7 L Phosphorus 2.00 L Magnesium TSH Free T4 HCG, Quant Urine WBC (Auto) Urine Creatinine 55.4 H 08/28/17 08/28/17 08/28/17 07:02 15:32 22:00 Hgb [facility] RDW [place] % (Auto) [place] # Seg Neutrophils % POC ABG pH Sodium Potassium 3.0 L 2.5 L* 2.8 L* Chloride Carbon Dioxide BUN 4 L Creatinine 0.4 L Glucose 125 H Calcium 7.8 L Phosphorus Magnesium TSH Free T4 HCG, Quant Urine WBC (Auto) Urine Creatinine 08/29/17 08/29/17 08/30/17 06:04 21:34 04:29 Hgb [facility] RDW [place] % (Auto) [place] # Seg Neutrophils % POC ABG pH Sodium Potassium 3.0 L 2.5 L* 2.7 L* Chloride Carbon Dioxide BUN 5 L Creatinine 0.5 L 0.4 L Glucose 106 H Calcium 7.7 L 7.6 L Phosphorus Magnesium TSH Free T4 HCG, Quant Urine WBC (Auto) Urine Creatinine 08/30/17 08/30/17 08/31/17 17:53 22:37 04:10 Hgb MCHC RDW [place] % (Auto) [place] # Seg Neutrophils % POC ABG pH Sodium Potassium 3.0 L 3.0 L 3.0 L Chloride Carbon Dioxide BUN 6 L 6 L Creatinine 0.4 L 0.4 L Glucose 113 H 140 H Calcium 7.7 L 7.9 L Phosphorus Magnesium TSH Free T4 HCG, Quant Urine WBC (Auto) Urine Creatinine 08/31/17 08/31/17 09/01/17 14:47 22:45 00:24 Hgb MCHC RDW [place] % (Auto) [place] # Seg Neutrophils % POC ABG pH Sodium Potassium 2.7 L* 2.8 L* 2.8 L* Chloride Carbon Dioxide BUN Creatinine Glucose Calcium Phosphorus Magnesium TSH Free T4 HCG, Quant Urine WBC (Auto) Urine Creatinine 09/01/17 09/01/17 04:53 08:17 Hgb MCHC RDW [place] % (Auto) [place] # Seg Neutrophils % POC ABG pH Sodium Potassium 3.2 L 3.0 L Chloride Carbon Dioxide BUN 6 L Creatinine 0.4 L Glucose 106 H Calcium 7.8 L Phosphorus Magnesium TSH Free T4 HCG, Quant Urine WBC (Auto) Urine Creatinine Laboratory Results - last 24 hr 08/31/17 08/31/17 08/31/17 14:47 19:55 22:45 Sodium Potassium 2.7 L* 2.8 L* Chloride Carbon Dioxide Anion Gap BUN Creatinine Estimated GFR BUN/Creatinine Ratio Glucose Hemoglobin A1c 4.7 Calcium Magnesium 09/01/17 09/01/17 09/01/17 00:24 04:53 08:17 Sodium 142 Potassium 2.8 L* 3.2 L 3.0 L Chloride 103.0 Carbon Dioxide 28 Anion Gap 14 BUN 6 L Creatinine 0.4 L Estimated GFR > 60 BUN/Creatinine Ratio 15 Glucose 106 H Hemoglobin A1c Calcium 7.8 L Magnesium 1.70
[2017-09-01 11:14] LABS: Alanine Aminotransferase 25 units/L (7-56); Albumin 2.7 g/dL (3.9-5); BUN/Creatinine Ratio 13; Blood Urea Nitrogen 5 mg/dL (7-17); Hemolysis Index 19
--- NOTE | 2017-09-01 11:48 | Gastroenterology Consultation ---
History of Present Illness - Reason for Consult Consult date: 09/01/17 persistent N/V Requesting physician: RANI CORONEL - History of Present Illness Patient is a 36 y/o female with PMH of fibroids, morbid obesity, and hyperemesis gravidrium with previous pregnancies requiring prolonged hospital visits and a reglan pump who is now 8 weeks gestation and admitted for hyperemesis with severe hypokalemia. GI has been consulted for persistent N/V. This am pt was resting in bed w/o acute distress. She admits to continued nausea but no episodes of vomiting today and tolerating GI soft diet. Admits to occasional lower abd cramps but denies any abd pain. No signs of bleeding such as hematemesis, melena, or hematochezia. Denies fever, wt loss, CP, SOB, dizziness, dysphagia, odynophagia, diarrhea or constipation. Takes occasional NSAIDs approximately twice a month. No hx of PUD or previous EGD. Past History Past Medical History: other (fibroids, morbid obesity, h/o hyperemesis gravidarum with previous pregnancies) Past Surgical History: Other (D&C (2013), myomectomy (2008)) Social history: no significant social history Family history: cancer, diabetes, hypertension Medications and Allergies Allergies Allergy/AdvReac Type Severity Reaction Status Date / Time promethazine HCl Allergy Vomiting Verified 06/29/15 23:28 [From Phenergan] Home Medications Medication Instructions Recorded Confirmed Last Taken Type Butalb/Acetaminophen/Caffeine 1 cap PO Q6HR PRN #20 cap 07/31/16 08/23/17 Unknown Rx [Fioricet 50-300-40 mg CAP] traMADol [Ultram] 50 mg PO Q6HR PRN #20 tablet 01/23/17 08/23/17 Unknown Rx Nitrofurantoin Monohyd/M-Cryst 100 mg PO BID #14 capsule 08/14/17 08/23/17 Unknown Rx [Macrobid 100 mg Capsule] Ondansetron [Zofran Odt] 4 mg PO Q8HR PRN #12 tab.rapdis 08/14/17 08/23/17 Unknown Rx Vit Calc,Iron,Folic 1 each PO QDAY #30 tablet 08/14/17 08/23/17 Unknown Rx [ Vitamins] Active Meds: Active Medications Famotidine (Pepcid) 20 mg IV BID [facility] Last Admin: 08/31/17 21:11 Dose: 20 mg Hydrocortisone Sodium Succinate (Solu-Cortef) 100 mg IV Q8H [facility] Last Admin: 09/01/17 01:04 Dose: Not Given Magnesium Sulfate 1 gm/ Sodium (Chloride) 52 mls @ 26 mls/hr IV Q2H PRN PRN Reason: Magnesium level 1.8-2 mg/dL Magnesium Sulfate (Magnesium Sulfate 2gm/50ml) 2 gm in 50 mls @ 25 mls/hr IV Q2H PRN PRN Reason: Magnesium level 1.5-1.7 mg/dL Magnesium Sulfate (Magnesium Sulfate 4gm/100ml) 4 gm in 100 mls @ 25 mls/hr IV Q4H PRN PRN Reason: Magnesium level < 1.4 mg/dL Potassium Chloride 40 meq/ (Sodium Chloride) 520 mls @ 100 mls/hr IV Q1H PRN PRN Reason: Potassium 3-3.5 mEq/L Last Admin: 08/31/17 16:39 Dose: 100 mls/hr Potassium Chloride 60 meq/ (Sodium Chloride) 630 mls @ 100 mls/hr IV ONCE PRN PRN Reason: Potassium 2.6-2.9 mEq/L Last Admin: 09/01/17 01:05 Dose: 100 mls/hr Metoclopramide HCl (Reglan) 10 mg IV Q6H [facility] Last Admin: 08/31/17 23:30 Dose: Not Given Multivitamins/Iron/Calcium ( Vitamin) 1 each PO QDAY [facility] Last Admin: 08/30/17 10:14 Dose: Not Given Ondansetron HCl (Zofran) 4 mg IV Q6H PRN PRN Reason: N/V unrelieved by Reglan Last Admin: 08/31/17 21:21 Dose: 4 mg Potassium Chloride (Potassium Chloride) 40 meq PO Q12H [facility] Last Admin: 09/01/17 06:27 Dose: 40 meq Prochlorperazine Edisylate (Compazine) 5 mg IV Q6H PRN PRN Reason: Nausea And Vomiting Last Admin: 08/24/17 06:11 Dose: 5 mg Propylthiouracil (Propylthiouracil) 50 mg PO BID [facility] Last Admin: 08/31/17 21:13 Dose: 50 mg Pyridoxine HCl (Vitamin B-6) 25 mg PO TID [facility] Last Admin: 08/31/17 21:14 Dose: 25 mg Scopolamine (Transderm-Scop) 1 each TD Q3D [facility] Last Admin: 08/29/17 17:11 Dose: 1 each Review of Systems - Review of Systems All systems: negative Gastrointestinal: nausea Exam - Constitutional Vital Signs: Temp Pulse Resp BP Pulse Ox 98.6 F 95 H 20 132/78 95 09/01/17 08:40 09/01/17 08:40 09/01/17 08:40 09/01/17 08:40 09/01/17 08:40 General appearance: no acute distress, obese - EENT Eyes: PERRL, EOM intact ENT: hearing intact - Respiratory Respiratory: bilateral: CTA - Cardiovascular Rhythm: regular Heart Sounds: Present: S1 & S2 - Gastrointestinal General gastrointestinal: Present: soft, non-tender, non-distended, normal bowel sounds - Integumentary Integumentary: Present: warm, dry - Neurologic Neurological: alert and oriented x3 - Labs CBC & Chem 7: 08/23/17 16:13 09/01/17 08:17 Lab Results: Laboratory Results - last 24 hr 08/31/17 08/31/17 08/31/17 14:47 19:55 22:45 Sodium Potassium 2.7 L* 2.8 L* Chloride Carbon Dioxide Anion Gap BUN Creatinine Estimated GFR BUN/Creatinine Ratio Glucose Hemoglobin A1c 4.7 Calcium Magnesium Total Bilirubin AST ALT Alkaline Phosphatase Total Protein Albumin Albumin/Globulin Ratio 09/01/17 09/01/17 09/01/17 00:24 04:53 08:17 Sodium 142 Potassium 2.8 L* 3.2 L 3.0 L Chloride 103.0 Carbon Dioxide 28 Anion Gap 14 BUN 6 L Creatinine 0.4 L Estimated GFR > 60 BUN/Creatinine Ratio 15 Glucose 106 H Hemoglobin A1c Calcium 7.8 L Magnesium 1.70 Total Bilirubin AST ALT Alkaline Phosphatase Total Protein Albumin Albumin/Globulin Ratio 09/01/17 08:17 Sodium 143 Potassium 3.0 L Chloride 103.2 Carbon Dioxide 27 Anion Gap 16 BUN 5 L Creatinine 0.4 L Estimated GFR > 60 BUN/Creatinine Ratio 13 Glucose 103 H Hemoglobin A1c Calcium 8.0 L Magnesium Total Bilirubin 0.20 AST 13 ALT 25 Alkaline Phosphatase 53 Total Protein 5.3 L Albumin 2.7 L Albumin/Globulin Ratio 1.0 Assessment and Plan 1.persistent N/V 2.severe hypokalemia -afebrile -WBC-WNL -LFTs-WNL -etiology- most likely 2/2 hyperemesis gravidarum -clinically pt is with continued nausea but vomiting has resolved and no abd pain -tolerating GI soft diet -no recommendations for an EGD at this time, will treat with conservative management -will order abd U/S to r/o biliary process -continue current medications of pepcid, reglan, and zofran -electrolyte management per primary team -continue supportive care -will follow
[2017-09-01] MEDS: VITAMIN B-6 PO SCH ×2 (12:17→16:33)
[2017-09-01] MEDS: PRENATAL VITAMIN PO SCH (12:19)
[2017-09-01] MEDS: PROPYLTHIOURACIL PO SCH (12:22)
[2017-09-01] MEDS: TRANSDERM-SCOP TD SCH (12:23)
[2017-09-01] MEDS: PEPCID IV SCH ×2 (12:26→22:00)
[2017-09-01] MEDS: ZOFRAN IV PRN (12:32)
[2017-09-01] MEDS ORDERED: KCL 10MEQ/100ML 10 MEQ/100 ML BAG IV ONE (12:38)
[2017-09-01] MEDS ORDERED: KCL 40 MEQ in NACL 0.9% 500 ML 500 ML IV ONE (14:00)
[2017-09-01] MEDS ORDERED: KCL 10 MEQ in NACL 0.9% 100 ML IV ONE (14:00)
--- NOTE | 2017-09-01 14:50 | Progress Note ---
Assessment and Plan - Patient Problems (1) Hyperemesis gravidarum Current Visit: Yes Status: Acute Plan to address problem: CHIEF RESOURCE OFFICER on board On IVFs Per OBGYN (2) Hypokalemia Current Visit: Yes Status: Acute Plan to address problem: Hypokalemia possibly multifactorial secondary to inadequate dietary potassium oral intake worsened in setting of persistent vomiting, hypomagnesemia, and metabolic alkalosis Continue 40 meq PO BID KCL. Now Tolerating PO. On KCL IV PRN based on K levels. (3) Dehydration Current Visit: No Status: Acute Plan to address problem: Continue on IV fluids (4) Current Visit: No Status: Acute Qualifiers: Weeks of gestation: less than 8 weeks Qualified Code(s): Z3A.01 - Less than 8 weeks gestation of Plan to address problem: As per CHIEF RESOURCE OFFICER Plan d/w bedside RN. Dayron Cowan MD [phone] Subjective Date of service: 09/01/17 Principal diagnosis: 1) IUP at 8w4d 2) Hyperemesis 3) Severe hypokalemia 4) Morbid Obesity Interval history: Having nausea, denies vomiting. Taking PO KCL now. Objective - Exam Narrative Exam: General appearance: AAOX3 EENT: ATNC Neck: Present: neck supple Respiratory: CTAB Heart: regular, S1S2 Gastrointestinal: Present: normoactive bowel sounds. Absent: tenderness Integumentary: warm and dry Neurologic: alert and oriented x3 Musculoskeletal: Present: other (no edema to both lower extremities) Psychiatric: mood/affect appropriate, cooperative - Vital Signs Vital signs: Vital Signs - 12hr 09/01/17 09/01/17 09/01/17 04:25 08:40 12:28 Temperature 98.2 F 98.6 F 98.5 F Pulse Rate 74 95 H 95 H Respiratory 20 20 20 Rate Blood Pressure 141/68 132/78 121/65 [Right] O2 Sat by Pulse 95 95 95 Oximetry - Lab 08/23/17 16:13 09/01/17 08:17 Most recent lab results Calcium 8.0 mg/dL (8.4-10.2) L 09/01/17 08:17 Phosphorus 2.90 mg/dL (2.5-4.5) 08/30/17 04:29 Magnesium 1.70 mg/dL (1.7-2.3) 09/01/17 04:53 Urine Creatinine 55.4 mg/dL (0.1-20.0) H 08/27/17 18:38
[2017-09-01] MEDS ORDERED: TYLENOL PO PRN (15:09)
[2017-09-01] MEDS: REGLAN PO PRN (16:05)
--- NOTE | 2017-09-01 18:02 | Progress Note ---
Assessment and Plan Assessment and plan: --Persistent hypokalemia; potassium levels about 3 Replenish per protocol and monitor levels, normal magnesium levels Patient is tolerating oral KCl Continue to IV potassium chloride as needed, nephrology following --Hyperemesis gravidarum; mild improvement of symptoms Continue supportive care, Management per [employer] CE[employer] AND BATTERY ASSEMBLER GI evaluation and recommendations noted appreciated Follow abdominal ultrasound --Early 8 weeks / management per [employer] CE[employer] AND BATTERY ASSEMBLER --Morbid obesity; BMI of 45.1 Counseling done --DVT prophylaxis; per primary team Plan of care discussed with the patient and her nurse History Interval history: Patient seen and evaluated in her room medical records reviewed On your events reported by the nursing staff Patient's potassium level gradually improving, on oral and IV potassium as needed Patient complains of mild nausea, vague abdominal pain GI evaluation noted and appreciated Awaiting abdominal ultrasound Alert wake Oriented 3 Vital signs reviewed Hospitalist Physical - Constitutional Vitals: Temp Pulse Resp BP Pulse Ox 99.1 F 88 18 125/77 95 09/01/17 16:35 09/01/17 16:35 09/01/17 16:35 09/01/17 16:35 09/01/17 12:28 General appearance: Present: no acute distress, well-nourished, obese (morbidly obese) - EENT Eyes: Present: PERRL, EOM intact - Neck Neck: Present: supple, normal ROM - Respiratory Respiratory effort: normal Respiratory: negative: rales, rhonchi, wheezing - Cardiovascular Rhythm: regular Heart Sounds: Present: S1 & S2 - Extremities Extremities: no ischemia, No edema - Abdominal General gastrointestinal: soft, non-tender, non-distended, normal bowel sounds - Integumentary Integumentary: Present: clear, warm - Psychiatric Psychiatric: appropriate mood/affect, cooperative - Neurologic Neurologic: CNII-XII intact, moves all extremities Results - Labs CBC & Chem 7: 08/23/17 16:13 09/01/17 08:17 Labs: Laboratory Last Values WBC 10.0 K/mm3 (4.5-11.0) 08/23/17 16:13 RBC 4.84 M/mm3 (3.65-5.03) 08/23/17 16:13 Hgb 14.7 gm/dl (10.1-14.3) H 08/23/17 16:13 Hct 41.6 % (30.3-42.9) 08/23/17 16:13 MCV 86 fl (79-97) 08/23/17 16:13 MCH 30 pg (28-32) 08/23/17 16:13 MCHC 35 % (30-34) H 08/23/17 16:13 RDW 16.3 % (13.2-15.2) H 08/23/17 16:13 Plt Count 286 K/mm3 (140-440) 08/23/17 16:13 Lymph % (Auto) 15.1 % (13.4-35.0) 08/23/17 16:13 [place] % (Auto) 12.3 % (0.0-7.3) H 08/23/17 16:13 Eos % (Auto) 1.6 % (0.0-4.3) 08/23/17 16:13 Baso % (Auto) 0.3 % (0.0-1.8) 08/23/17 16:13 Lymph # 1.5 K/mm3 (1.2-5.4) 08/23/17 16:13 [place] # 1.2 K/mm3 (0.0-0.8) H 08/23/17 16:13 Eos # 0.2 K/mm3 (0.0-0.4) 08/23/17 16:13 Baso # 0.0 K/mm3 (0.0-0.1) 08/23/17 16:13 Seg Neutrophils % 70.7 % (40.0-70.0) H 08/23/17 16:13 Seg Neutrophils # 7.1 K/mm3 (1.8-7.7) 08/23/17 16:13 POC ABG pH 7.525 (7.35-7.45) H 08/27/17 11:17 POC ABG pCO2 35.5 (35-45) 08/27/17 11:17 POC ABG pO2 87 (80-105) 08/27/17 11:17 POC ABG HCO3 29.3 08/27/17 11:17 POC ABG Total CO2 30 08/27/17 11:17 POC ABG O2 Sat 98 08/27/17 11:17 POC ABG Base Excess 7 08/27/17 11:17 FiO2 21 % 08/27/17 11:17 Sodium 143 mmol/L (137-145) 09/01/17 08:17 Potassium 3.0 mmol/L (3.6-5.0) L 09/01/17 08:17 Chloride 103.2 mmol/L (98-107) 09/01/17 08:17 Carbon Dioxide 27 mmol/L (22-30) 09/01/17 08:17 Anion Gap 16 mmol/L 09/01/17 08:17 BUN 5 mg/dL (7-17) L 09/01/17 08:17 Creatinine 0.4 mg/dL (0.7-1.2) L 09/01/17 08:17 Estimated GFR > 60 ml/min 09/01/17 08:17 BUN/Creatinine Ratio 13 % 09/01/17 08:17 Glucose 103 mg/dL (65-100) H 09/01/17 08:17 Hemoglobin A1c 4.7 % (4-6) 08/31/17 19:55 Calcium 8.0 mg/dL (8.4-10.2) L 09/01/17 08:17 Phosphorus 2.90 mg/dL (2.5-4.5) 08/30/17 04:29 Magnesium 1.70 mg/dL (1.7-2.3) 09/01/17 04:53 Total Bilirubin 0.20 mg/dL (0.1-1.2) 09/01/17 08:17 AST 13 units/L (5-40) 09/01/17 08:17 ALT 25 units/L (7-56) 09/01/17 08:17 Alkaline Phosphatase 53 units/L (35-129) 09/01/17 08:17 Total Protein 5.3 g/dL (6.3-8.2) L 09/01/17 08:17 Albumin 2.7 g/dL (3.9-5) L 09/01/17 08:17 Albumin/Globulin Ratio 1.0 % 09/01/17 08:17 Amylase 40 units/L (27-131) 08/23/17 16:13 Lipase 24 units/L (13-60) 08/23/17 16:13 TSH 0.063 mlU/mL (0.270-4.200) L 08/25/17 08:35 Free T4 2.08 ng/dL (0.76-1.46) H 08/25/17 08:35 Free T3 Index 3.1 pg/mL (2.3-4.2) 08/25/17 16:40 HCG, Quant 98487 mIU/mL (0-4) H 08/23/17 16:13 Urine Color [place] (Yellow) 08/23/17 20:45 Urine Turbidity Clear (Clear) 08/23/17 20:45 Urine pH 6.0 (5.0-7.0) 08/23/17 20:45 Ur Specific [place] 1.018 (1.003-1.030) 08/23/17 20:45 Urine Protein 30 mg/dl mg/dL (Negative) 08/23/17 20:45 Urine Glucose (UA) Neg mg/dL (Negative) 08/23/17 20:45 Urine Ketones 80 mg/dL (Negative) 08/23/17 20:45 Urine Blood Sm (Negative) 08/23/17 20:45 Urine Nitrite Neg (Negative) 08/23/17 20:45 Urine Bilirubin Neg (Negative) 08/23/17 20:45 Urine Urobilinogen 4.0 mg/dL (<2.0) 08/23/17 20:45 Ur Leukocyte Esterase Lg (Negative) 08/23/17 20:45 Urine WBC (Auto) 15.0 /HPF (0.0-6.0) H 08/23/17 20:45 Urine RBC (Auto) 5.0 /HPF (0.0-6.0) 08/23/17 20:45 U Epithel Cells (Auto) 6.0 /HPF (0-13.0) 08/23/17 20:45 Urine Bacteria (Auto) 1+ /HPF (Negative) 08/23/17 20:45 Urine Mucus Few /HPF 08/23/17 20:45 Urine Creatinine 55.4 mg/dL (0.1-20.0) H 08/27/17 18:38 Urine Potassium 27.60 mmol/L 08/27/17 18:38 Hepatitis A IgM Ab Non-reactive (NonReactive) 08/23/17 16:13 Hep Bs Antigen Non-reactive (Negative) 08/23/17 16: Hep B Core IgM Ab Non-reactive (NonReactive) 08/23/17 16:13 Hepatitis C Antibody Non-reactive (NonReactive) 08/23/17 16:13
[2017-09-01] MEDS: REGLAN IV SCH (19:00)
[2017-09-02] MEDS: REGLAN IV SCH (01:49)
[2017-09-02] MEDS: PEPCID IV SCH ×2 (01:55→12:53)
[2017-09-02] MEDS: REGLAN PO PRN ×3 (02:04→18:32)
[2017-09-02] MEDS: VITAMIN B-6 PO SCH ×3 (02:04→21:42)
[2017-09-02] MEDS: PROPYLTHIOURACIL PO SCH ×3 (02:04→21:49)
[2017-09-02] MEDS: NORCO 5/325 PO PRN ×2 (02:12→18:32)
[2017-09-02 06:07] LABS: BUN/Creatinine Ratio 23; Blood Urea Nitrogen 9 mg/dL (7-17); Calcium 7.8 mg/dL (8.4-10.2); Hemolysis Index 12
--- NOTE | 2017-09-02 08:50 | Progress Note ---
Assessment and Plan - Patient Problems (1) Hyperemesis gravidarum Current Visit: Yes Status: Acute Plan to address problem: PICK UP DRIVER on board, on telma jean baptiste compazine GI consulted for further evaluation of persistent nausea/vomiting, right upper quadrant abdominal ultrasound pending Follow up recs (2) Hypokalemia Current Visit: Yes Status: Acute Plan to address problem: Hypokalemia possibly multifactorial secondary to inadequate dietary potassium oral intake worsened in setting of persistent vomiting, hypomagnesemia, and metabolic alkalosis Serum potassium level increased to 3.1 today, yesterday's serum potassium level was 3.0 Continue on potassium chloride 60 mEq (packet) orally twice a day Aldosterone/plasma renin ratio and plasma renin activity pending GI consulted for further evaluation of persistent nausea/vomiting, right upper quadrant abdominal ultrasound pending Strict intake and output Renal plan discussed with Dr Hilliard Continue supportive therapy (3) Current Visit: Yes Status: Acute Plan to address problem: As per PICK UP DRIVER Subjective Date of service: 09/02/17 Principal diagnosis: 1) IUP at 8w4d 2) Hyperemesis 3) Severe hypokalemia 4) Morbid Obesity Interval history: Patient reports she continues to have nausea and vomiting. Patient states she ate three of her meals yesterday, kept down one meal without vomiting, but did vomit with other two meals. Patient states she has been able to tolerate potassium chloride packets without vomiting so far. No family at bedside. Objective - Vital Signs Vital signs: Vital Signs - 12hr 09/01/17 09/02/17 09/02/17 20:55 01:11 04:58 Temperature 98.5 F 97.2 F L 98.7 F Pulse Rate 88 89 68 Respiratory 18 18 20 Rate Blood Pressure 120/59 108/56 120/70 [Right] - General Appearance General appearance: well-developed (no acute distress) EENT: ATNC Neck: no JVD Respiratory: Present: Clear to Ascultation Cardiology: regular, S1S2 Gastrointestinal: normoactive bowel sounds, tenderness Integumentary: warm and dry Neurologic: alert and oriented x3 Musculoskeletal: other (trace edema to both lower extremities) Psychiatric: mood/affect appropriate, cooperative - Lab 08/23/17 16:13 09/02/17 05:24 Most recent lab results Calcium 7.8 mg/dL (8.4-10.2) L 09/02/17 05:24 Phosphorus 2.90 mg/dL (2.5-4.5) 08/30/17 04:29 Magnesium 1.70 mg/dL (1.7-2.3) 09/02/17 05:24 Urine Creatinine 55.4 mg/dL (0.1-20.0) H 08/27/17 18:38
--- NOTE | 2017-09-02 08:50 | Progress Note ---
Assessment and Plan HD#10 A: IUP at 8w5d, Hyperemesis, Persistent Hypokalemia, Morbid Obesity P: Continue current management All consults noted and appreciated Subjective - Subjective Date of service: 09/02/17 Principal diagnosis: 1) IUP at 8w5d 2) Hyperemesis 3) Severe hypokalemia 4) Morbid Obesity Interval history: Only intermittent improvement in nausea. Emesisn triggered by KCL packets. GI and Hospitalist recommendations appreciated. RUQ ultrasound ordered for this morning. No obstetric complaints. Continues to require IV supplementation to maintain K greater than 3.0 but baseline K is slowly increasing. Pt feels weak this morning. Patient reports: no new complaints (continued nausea. Tolerating small amount of solids), no loss of fluid, no vaginal bleeding, no contractions Objective - Vital Signs Vital Signs: Vital Signs - 12hr 09/01/17 09/02/17 09/02/17 20:55 01:11 04:58 Temperature 98.5 F 97.2 F L 98.7 F Pulse Rate 88 89 68 Respiratory 18 18 20 Rate Blood Pressure 120/59 108/56 120/70 [Right] - Exam Breasts: deferred Cardiovascular: Regular rate Lungs: Clear to auscultation Abdomen: Present: soft (obese) Extremities: edema - Labs Labs: Abnormal Labs 08/23/17 08/23/17 08/23/17 16:13 16:13 16:13 Hgb 14.7 H MCHC 35 H RDW 16.3 H [place] % (Auto) 12.3 H [place] # 1.2 H Seg Neutrophils % 70.7 H POC ABG pH Sodium Potassium Chloride Carbon Dioxide BUN Creatinine Glucose Calcium Phosphorus Magnesium Total Protein Albumin TSH 0.086 L Free T4 HCG, Quant 58761 H Urine WBC (Auto) Urine Creatinine 08/23/17 08/23/17 08/24/17 16:13 20:45 14:50 Hgb MCHC RDW [place] % (Auto) [place] # Seg Neutrophils % POC ABG pH Sodium 136 L Potassium 2.6 L* 3.3 L D Chloride 89.2 L Carbon Dioxide BUN 6 L Creatinine 0.6 L 0.5 L Glucose Calcium 7.9 L D Phosphorus Magnesium Total Protein Albumin TSH Free T4 HCG, Quant Urine WBC (Auto) 15.0 H Urine Creatinine 08/25/17 08/25/17 08/25/17 08:35 08:35 12:33 Hgb [facility] RDW [place] % (Auto) [place] # Seg Neutrophils % POC ABG pH Sodium Potassium 2.4 L* D 2.8 L* Chloride 110.9 H Carbon Dioxide 18 L D BUN 3 L Creatinine 0.3 L Glucose 136 H Calcium 6.2 L D Phosphorus Magnesium Total Protein Albumin TSH 0.063 L Free T4 2.08 H HCG, Quant Urine WBC (Auto) Urine Creatinine 08/25/17 08/25/17 08/26/17 16:40 22:41 07:02 Hgb [facility] RDW [place] % (Auto) [place] # Seg Neutrophils % POC ABG pH Sodium Potassium 3.0 L 2.9 L* 2.9 L* Chloride Carbon Dioxide BUN Creatinine Glucose Calcium Phosphorus Magnesium Total Protein Albumin TSH Free T4 HCG, Quant Urine WBC (Auto) Urine Creatinine 08/26/17 08/27/17 08/27/17 12:21 03:00 11:17 Hgb [facility] RDW [place] % (Auto) [place] # Seg Neutrophils % POC ABG pH 7.525 H Sodium Potassium 2.6 L* Chloride Carbon Dioxide BUN 2 L Creatinine 0.4 L Glucose 142 H Calcium 7.8 L D Phosphorus Magnesium 1.50 L Total Protein Albumin TSH Free T4 HCG, Quant Urine WBC (Auto) Urine Creatinine 08/27/17 08/27/17 08/27/17 18:35 18:38 20:56 Hgb [facility] RDW [place] % (Auto) [place] # Seg Neutrophils % POC ABG pH Sodium Potassium 2.4 L* 2.8 L* Chloride Carbon Dioxide BUN 4 L Creatinine 0.5 L Glucose 149 H Calcium 7.7 L Phosphorus 2.00 L Magnesium Total Protein Albumin TSH Free T4 HCG, Quant Urine WBC (Auto) Urine Creatinine 55.4 H 08/28/17 08/28/17 08/28/17 07:02 15:32 22:00 Hgb [facility] RDW [place] % (Auto) [place] # Seg Neutrophils % POC ABG pH Sodium Potassium 3.0 L 2.5 L* 2.8 L* Chloride Carbon Dioxide BUN 4 L Creatinine 0.4 L Glucose 125 H Calcium 7.8 L Phosphorus Magnesium Total Protein Albumin TSH Free T4 HCG, Quant Urine WBC (Auto) Urine Creatinine 08/29/17 08/29/17 08/30/17 06:04 21:34 04:29 Hgb [facility] RDW [place] % (Auto) [place] # Seg Neutrophils % POC ABG pH Sodium Potassium 3.0 L 2.5 L* 2.7 L* Chloride Carbon Dioxide BUN 5 L Creatinine 0.5 L 0.4 L Glucose 106 H Calcium 7.7 L 7.6 L Phosphorus Magnesium Total Protein Albumin TSH Free T4 HCG, Quant Urine WBC (Auto) Urine Creatinine 08/30/17 08/30/17 08/31/17 17:53 22:37 04:10 Hgb [facility] RDW [place] % (Auto) [place] # Seg Neutrophils % POC ABG pH Sodium Potassium 3.0 L 3.0 L 3.0 L Chloride Carbon Dioxide BUN 6 L 6 L Creatinine 0.4 L 0.4 L Glucose 113 H 140 H Calcium 7.7 L 7.9 L Phosphorus Magnesium Total Protein Albumin TSH Free T4 HCG, Quant Urine WBC (Auto) Urine Creatinine 08/31/17 08/31/17 09/01/17 14:47 22:45 00:24 Hgb [facility] RDW [place] % (Auto) [place] # Seg Neutrophils % POC ABG pH Sodium Potassium 2.7 L* 2.8 L* 2.8 L* Chloride Carbon Dioxide BUN Creatinine Glucose Calcium Phosphorus Magnesium Total Protein Albumin TSH Free T4 HCG, Quant Urine WBC (Auto) Urine Creatinine 09/01/17 09/01/17 09/01/17 04:53 08:17 08:17 Hgb [facility] RDW [place] % (Auto) [place] # Seg Neutrophils % POC ABG pH Sodium Potassium 3.2 L 3.0 L 3.0 L Chloride Carbon Dioxide BUN 6 L 5 L Creatinine 0.4 L 0.4 L Glucose 106 H 103 H Calcium 7.8 L 8.0 L Phosphorus Magnesium Total Protein 5.3 L Albumin 2.7 L TSH Free T4 HCG, Quant Urine WBC (Auto) Urine Creatinine 09/01/17 09/02/17 22:37 05:24 Hgb [facility] RDW [place] % (Auto) [place] # Seg Neutrophils % POC ABG pH Sodium 136 L Potassium 3.0 L 3.1 L Chloride 96.6 L Carbon Dioxide BUN Creatinine 0.4 L Glucose 122 H Calcium 7.8 L Phosphorus Magnesium Total Protein Albumin TSH Free T4 HCG, Quant Urine WBC (Auto) Urine Creatinine Laboratory Results - last 24 hr 09/01/17 09/01/17 09/01/17 08:17 08:17 22:37 Sodium 143 Potassium 3.0 L 3.0 L 3.0 L Chloride 103.2 Carbon Dioxide 27 Anion Gap 16 BUN 5 L Creatinine 0.4 L Estimated GFR > 60 BUN/Creatinine Ratio 13 Glucose 103 H Calcium 8.0 L Magnesium Total Bilirubin 0.20 AST 13 ALT 25 Alkaline Phosphatase 53 Total Protein 5.3 L Albumin 2.7 L Albumin/Globulin Ratio 1.0 09/02/17 05:24 Sodium 136 L Potassium 3.1 L Chloride 96.6 L Carbon Dioxide 29 Anion Gap 14 BUN 9 Creatinine 0.4 L Estimated GFR > 60 BUN/Creatinine Ratio 23 Glucose 122 H Calcium 7.8 L Magnesium 1.70 Total Bilirubin AST ALT Alkaline Phosphatase Total Protein Albumin Albumin/Globulin Ratio
[2017-09-02] MEDS: PRENATAL VITAMIN PO SCH ×2 (11:20→21:45)
[2017-09-02] MEDS: POTASSIUM CHLORIDE PO SCH ×2 (11:22→21:44)
--- NOTE | 2017-09-02 11:40 | Ultrasound Report ---
ULTRASOUND ABDOMEN LIMITED: TECHNIQUE: Transabdominal ultrasound with color Doppler interrogation. HISTORY: Persistent nausea and vomiting, 8 weeks . COMPARISON: none. FINDINGS: LIVER: Normal. BILIARY SYSTEM: There is a mild degree of non-shadowing debris within the gallbladder consistent with sludge. No large shadowing gallstones are identified. The CBD measures 3 mm. PANCREAS: Normal. RIGHT KIDNEY: Normal. PROXIMAL AORTA: Normal. ASCITES: None. IMPRESSION: Sludge in the gallbladder. No evidence for acute cholecystitis..
--- NOTE | 2017-09-02 16:51 | Progress Note ---
Assessment and Plan Assessment and plan: --Hyperemesis gravidarum; mild improvement of symptoms Management per LABOR RELATIONS DIRECTOR GI evaluation and recommendations noted , patient had abdominal ultrasound Follow-up report and GI recommendations --Persistent hypokalemia; potassium levels about 3.1 today Increase maintenance KCl to 60 mEq twice a day Replenish per protocol and monitor levels, Continue to IV potassium chloride as needed, nephrology following --Early 8 weeks / management per LABOR RELATIONS DIRECTOR --Morbid obesity; BMI of 45.1 Counseling done --DVT prophylaxis; per primary team Plan of care discussed with the patient and her nurse History Interval history: Patient seen and examined in her room this afternoon Medical records reviewed, no new events reported by the nursing staff Patient's potassium is 3.1, on replacement protocol Patient denies nausea vomiting GI evaluation noted no appreciated Underwent abdominal ultrasound Vital signs reviewed Hospitalist Physical - Constitutional Vitals: Temp Pulse Resp BP Pulse Ox 98.2 F 79 20 119/69 98 09/02/17 12:33 09/02/17 12:33 09/02/17 12:33 09/02/17 12:33 09/02/17 12:33 General appearance: Present: no acute distress, well-nourished, obese (morbidly obese) - EENT Eyes: Present: PERRL, EOM intact - Neck Neck: Present: supple, normal ROM - Respiratory Respiratory effort: normal Respiratory: bilateral: diminished, negative: rales, rhonchi, wheezing - Cardiovascular Rhythm: regular Heart Sounds: Present: S1 & S2 - Extremities Extremities: no ischemia, No edema - Abdominal General gastrointestinal: soft, non-tender, non-distended, normal bowel sounds - Integumentary Integumentary: Present: clear, warm - Psychiatric Psychiatric: appropriate mood/affect, cooperative - Neurologic Neurologic: CNII-XII intact, moves all extremities Results - Labs CBC & Chem 7: 08/23/17 16:13 09/02/17 05:24 Labs: Laboratory Last Values WBC 10.0 K/mm3 (4.5-11.0) 08/23/17 16:13 RBC 4.84 M/mm3 (3.65-5.03) 08/23/17 16:13 Hgb 14.7 gm/dl (10.1-14.3) H 08/23/17 16:13 Hct 41.6 % (30.3-42.9) 08/23/17 16:13 MCV 86 fl (79-97) 08/23/17 16:13 MCH 30 pg (28-32) 08/23/17 16:13 MCHC 35 % (30-34) H 08/23/17 16:13 RDW 16.3 % (13.2-15.2) H 08/23/17 16:13 Plt Count 286 K/mm3 (140-440) 08/23/17 16:13 Lymph % (Auto) 15.1 % (13.4-35.0) 08/23/17 16:13 [place] % (Auto) 12.3 % (0.0-7.3) H 08/23/17 16:13 Eos % (Auto) 1.6 % (0.0-4.3) 08/23/17 16:13 Baso % (Auto) 0.3 % (0.0-1.8) 08/23/17 16:13 Lymph # 1.5 K/mm3 (1.2-5.4) 08/23/17 16:13 [place] # 1.2 K/mm3 (0.0-0.8) H 08/23/17 16:13 Eos # 0.2 K/mm3 (0.0-0.4) 08/23/17 16:13 Baso # 0.0 K/mm3 (0.0-0.1) 08/23/17 16:13 Seg Neutrophils % 70.7 % (40.0-70.0) H 08/23/17 16:13 Seg Neutrophils # 7.1 K/mm3 (1.8-7.7) 08/23/17 16:13 POC ABG pH 7.525 (7.35-7.45) H 08/27/17 11:17 POC ABG pCO2 35.5 (35-45) 08/27/17 11:17 POC ABG pO2 87 (80-105) 08/27/17 11:17 POC ABG HCO3 29.3 08/27/17 11:17 POC ABG Total CO2 30 08/27/17 11:17 POC ABG O2 Sat 98 08/27/17 11:17 POC ABG Base Excess 7 08/27/17 11:17 FiO2 21 % 08/27/17 11:17 Sodium 136 mmol/L (137-145) L 09/02/17 05:24 Potassium 3.1 mmol/L (3.6-5.0) L 09/02/17 05:24 Chloride 96.6 mmol/L (98-107) L 09/02/17 05:24 Carbon Dioxide 29 mmol/L (22-30) 09/02/17 05:24 Anion Gap 14 mmol/L 09/02/17 05:24 BUN 9 mg/dL (7-17) 09/02/17 05:24 Creatinine 0.4 mg/dL (0.7-1.2) L 09/02/17 05:24 Estimated GFR > 60 ml/min 09/02/17 05:24 BUN/Creatinine Ratio 23 % 09/02/17 05:24 Glucose 122 mg/dL (65-100) H 09/02/17 05:24 Hemoglobin A1c 4.7 % (4-6) 08/31/17 19:55 Calcium 7.8 mg/dL (8.4-10.2) L 09/02/17 05:24 Phosphorus 2.90 mg/dL (2.5-4.5) 08/30/17 04:29 Magnesium 1.70 mg/dL (1.7-2.3) 09/02/17 05:24 Total Bilirubin 0.20 mg/dL (0.1-1.2) 09/01/17 08:17 AST 13 units/L (5-40) 09/01/17 08:17 ALT 25 units/L (7-56) 09/01/17 08:17 Alkaline Phosphatase 53 units/L (35-129) 09/01/17 08:17 Total Protein 5.3 g/dL (6.3-8.2) L 09/01/17 08:17 Albumin 2.7 g/dL (3.9-5) L 09/01/17 08:17 Albumin/Globulin Ratio 1.0 % 09/01/17 08:17 Amylase 40 units/L (27-131) 08/23/17 16:13 Lipase 24 units/L (13-60) 08/23/17 16:13 TSH 0.063 mlU/mL (0.270-4.200) L 08/25/17 08:35 Free T4 2.08 ng/dL (0.76-1.46) H 08/25/17 08:35 Free T3 Index 3.1 pg/mL (2.3-4.2) 08/25/17 16:40 HCG, Quant 18079 mIU/mL (0-4) H 08/23/17 16:13 Urine Color [place] (Yellow) 08/23/17 20:45 Urine Turbidity Clear (Clear) 08/23/17 20:45 Urine pH 6.0 (5.0-7.0) 08/23/17 20:45 Ur Specific [place] 1.018 (1.003-1.030) 08/23/17 20:45 Urine Protein 30 mg/dl mg/dL (Negative) 08/23/17 20:45 Urine Glucose (UA) Neg mg/dL (Negative) 08/23/17 20:45 Urine Ketones 80 mg/dL (Negative) 08/23/17 20:45 Urine Blood Sm (Negative) 08/23/17 20:45 Urine Nitrite Neg (Negative) 08/23/17 20:45 Urine Bilirubin Neg (Negative) 08/23/17 20:45 Urine Urobilinogen 4.0 mg/dL (<2.0) 08/23/17 20:45 Ur Leukocyte Esterase Lg (Negative) 08/23/17 20:45 Urine WBC (Auto) 15.0 /HPF (0.0-6.0) H 08/23/17 20:45 Urine RBC (Auto) 5.0 /HPF (0.0-6.0) 08/23/17 20:45 U Epithel Cells (Auto) 6.0 /HPF (0-13.0) 08/23/17 20:45 Urine Bacteria (Auto) 1+ /HPF (Negative) 08/23/17 20:45 Urine Mucus Few /HPF 08/23/17 20:45 Urine Creatinine 55.4 mg/dL (0.1-20.0) H 08/27/17 18:38 Urine Potassium 27.60 mmol/L 08/27/17 18:38 Hepatitis A IgM Ab Non-reactive (NonReactive) 08/23/17 16:13 Hep Bs Antigen Non-reactive (Negative) 08/23/17 16:13 Hep B Core IgM Ab Non-reactive (NonReactive) 08/23/17 16:13 Hepatitis C Antibody Non-reactive (NonReactive) 08/23/17 16:13
--- NOTE | 2017-09-02 19:02 | Gastroenterology Progress Note ---
Assessment and Plan - Patient Problems (1) Hyperemesis gravidarum Current Visit: Yes Status: Acute Plan to address problem: - RUQ US negative for cholecystitis. - Will keep on low-dose pepcid for acid reflux. - OK to give current antiemetics as no actual vomiting (except with KCl). Subjective Date of service: 09/02/17 Principal diagnosis: Nausea Interval history: The patient has nausea, but no emesis until she tried to take a KCL elixir earlier today. She has had no blood in the stools, and no RUQ pain. She is able to tolerate some liquids and solids. Objective - Constitutional Vitals: Temp Pulse Resp BP Pulse Ox 99.0 F 84 22 121/22 96 09/02/17 16:03 09/02/17 16:03 09/02/17 16:03 09/02/17 16:03 09/02/17 16:03 General appearance: no acute distress - Respiratory Respiratory effort: normal Respiratory: bilateral: CTA - Cardiovascular Rhythm: regular Heart Sounds: Present: S1 & S2 - Gastrointestinal General gastrointestinal: Present: soft, non-tender, non-distended - Labs CBC & Chem 7: 08/23/17 16:13 09/02/17 05:24 Labs: Laboratory Results - last 24 hr 09/01/17 09/02/17 22:37 05:24 Sodium 136 L Potassium 3.0 L 3.1 L Chloride 96.6 L Carbon Dioxide 29 Anion Gap 14 BUN 9 Creatinine 0.4 L Estimated GFR > 60 BUN/Creatinine Ratio 23 Glucose 122 H Calcium 7.8 L Magnesium 1.70
[2017-09-03] MEDS: REGLAN PO PRN ×2 (00:03→12:05)
[2017-09-03] MEDS: NORCO 5/325 PO PRN (01:22)
[2017-09-03 05:19] LABS: BUN/Creatinine Ratio 22; Blood Urea Nitrogen 11 mg/dL (7-17); Calcium 8.2 mg/dL (8.4-10.2); Hemolysis Index 9
--- NOTE | 2017-09-03 08:48 | Progress Note ---
Assessment and Plan HD#11 --Hyperemesis gravidarum; mild improvement of symptoms appreciate GI recommendations IVF started( patient requested unable to tolerate fluids last night) --Persistent hypokalemia; potassium levels about 3.5 today on oral but unable to take vomited yesterday Continue to IV potassium chloride as needed, nephrology following --Morbid obesity; BMI of 45.1 Counseling done --DVT prophylaxis; per primary team Subjective - Subjective Date of service: 09/03/17 Principal diagnosis: 1) IUP at 8w6d 2) Hyperemesis 3) Severe hypokalemia 4) Morbid Obesity Patient reports: no new complaints (continued nausea. Tolerating small amount of solids), no loss of fluid, no vaginal bleeding, no contractions Objective - Vital Signs Vital Signs: Vital Signs - 12hr 09/02/17 09/03/17 09/03/17 21:40 01:22 01:45 Temperature 98.6 F 98 F Pulse Rate 87 79 Respiratory 18 18 18 Rate Blood Pressure 113/64 122/63 [Right] 09/03/17 06:00 Temperature 97.9 F Pulse Rate 74 Respiratory 18 Rate Blood Pressure 121/57 [Right] - Exam Breasts: normal Cardiovascular: Regular rate, Normal S1 Lungs: Clear to auscultation, Normal air movement Abdomen: Present: normal appearance, soft, normal bowel sounds. Absent: distention, tenderness, guarding Uterus: Present: normal Extremities: normal Deep Tendon Reflex Grade: Normal +2 - Labs Labs: Abnormal Labs 08/23/17 08/23/17 08/23/17 16:13 16:13 16:13 Hgb 14.7 H MCHC 35 H RDW 16.3 H [place] % (Auto) 12.3 H [place] # 1.2 H Seg Neutrophils % 70.7 H POC ABG pH Sodium Potassium Chloride Carbon Dioxide BUN Creatinine Glucose Calcium Phosphorus Magnesium Total Protein Albumin TSH 0.086 L Free T4 HCG, Quant 17045 H Urine WBC (Auto) Urine Creatinine 08/23/17 08/23/17 08/24/17 16:13 20:45 14:50 Hgb MCHC RDW [place] % (Auto) [place] # Seg Neutrophils % POC ABG pH Sodium 136 L Potassium 2.6 L* 3.3 L D Chloride 89.2 L Carbon Dioxide BUN 6 L Creatinine 0.6 L 0.5 L Glucose Calcium 7.9 L D Phosphorus Magnesium Total Protein Albumin TSH Free T4 HCG, Quant Urine WBC (Auto) 15.0 H Urine Creatinine 08/25/17 08/25/17 08/25/17 08:35 08:35 12:33 Hgb MCHC RDW [place] % (Auto) [place] # Seg Neutrophils % POC ABG pH Sodium Potassium 2.4 L* D 2.8 L* Chloride 110.9 H Carbon Dioxide 18 L D BUN 3 L Creatinine 0.3 L Glucose 136 H Calcium 6.2 L D Phosphorus Magnesium Total Protein Albumin TSH 0.063 L Free T4 2.08 H HCG, Quant Urine WBC (Auto) Urine Creatinine 08/25/17 08/25/17 08/26/17 16:40 22:41 07:02 Hgb MCHC RDW [place] % (Auto) [place] # Seg Neutrophils % POC ABG pH Sodium Potassium 3.0 L 2.9 L* 2.9 L* Chloride Carbon Dioxide BUN Creatinine Glucose Calcium Phosphorus Magnesium Total Protein Albumin TSH Free T4 HCG, Quant Urine WBC (Auto) Urine Creatinine 08/26/17 08/27/17 08/27/17 12:21 03:00 11:17 Hgb [facility] RDW [place] % (Auto) [place] # Seg Neutrophils % POC ABG pH 7.525 H Sodium Potassium 2.6 L* Chloride Carbon Dioxide BUN 2 L Creatinine 0.4 L Glucose 142 H Calcium 7.8 L D Phosphorus Magnesium 1.50 L Total Protein Albumin TSH Free T4 HCG, Quant Urine WBC (Auto) Urine Creatinine 08/27/17 08/27/17 08/27/17 18:35 18:38 20:56 Hgb MCH RDW [place] % (Auto) [place] # Seg Neutrophils % POC ABG pH Sodium Potassium 2.4 L* 2.8 L* Chloride Carbon Dioxide BUN 4 L Creatinine 0.5 L Glucose 149 H Calcium 7.7 L Phosphorus 2.00 L Magnesium Total Protein Albumin TSH Free T4 HCG, Quant Urine WBC (Auto) Urine Creatinine 55.4 H 08/28/17 08/28/17 08/28/17 07:02 15:32 22:00 Hgb [facility] RDW [place] % (Auto) [place] # Seg Neutrophils % POC ABG pH Sodium Potassium 3.0 L 2.5 L* 2.8 L* Chloride Carbon Dioxide BUN 4 L Creatinine 0.4 L Glucose 125 H Calcium 7.8 L Phosphorus Magnesium Total Protein Albumin TSH Free T4 HCG, Quant Urine WBC (Auto) Urine Creatinine 08/29/17 08/29/17 08/30/17 06:04 21:34 04:29 Hgb MCHC RDW [place] % (Auto) [place] # Seg Neutrophils % POC ABG pH Sodium Potassium 3.0 L 2.5 L* 2.7 L* Chloride Carbon Dioxide BUN 5 L Creatinine 0.5 L 0.4 L Glucose 106 H Calcium 7.7 L 7.6 L Phosphorus Magnesium Total Protein Albumin TSH Free T4 HCG, Quant Urine WBC (Auto) Urine Creatinine 08/30/17 08/30/17 08/31/17 17:53 22:37 04:10 Hgb MCHC RDW [place] % (Auto) [place] # Seg Neutrophils % POC ABG pH Sodium Potassium 3.0 L 3.0 L 3.0 L Chloride Carbon Dioxide BUN 6 L 6 L Creatinine 0.4 L 0.4 L Glucose 113 H 140 H Calcium 7.7 L 7.9 L Phosphorus Magnesium Total Protein Albumin TSH Free T4 HCG, Quant Urine WBC (Auto) Urine Creatinine 08/31/17 08/31/17 09/01/17 14:47 22:45 00:24 Hgb MCHC RDW [place] % (Auto) [place] # Seg Neutrophils % POC ABG pH Sodium Potassium 2.7 L* 2.8 L* 2.8 L* Chloride Carbon Dioxide BUN Creatinine Glucose Calcium Phosphorus Magnesium Total Protein Albumin TSH Free T4 HCG, Quant Urine WBC (Auto) Urine Creatinine 09/01/17 09/01/17 09/01/17 04:53 08:17 08:17 Hgb MCHC RDW [place] % (Auto) [place] # Seg Neutrophils % POC ABG pH Sodium Potassium 3.2 L 3.0 L 3.0 L Chloride Carbon Dioxide BUN 6 L 5 L Creatinine 0.4 L 0.4 L Glucose 106 H 103 H Calcium 7.8 L 8.0 L Phosphorus Magnesium Total Protein 5.3 L Albumin 2.7 L TSH Free T4 HCG, Quant Urine WBC (Auto) Urine Creatinine 09/01/17 09/02/17 09/02/17 22:37 05:24 18:28 Hgb MCHC RDW [place] % (Auto) [place] # Seg Neutrophils % POC ABG pH Sodium 136 L Potassium 3.0 L 3.1 L 3.4 L Chloride 96.6 L Carbon Dioxide BUN Creatinine 0.4 L Glucose 122 H Calcium 7.8 L Phosphorus Magnesium Total Protein Albumin TSH Free T4 HCG, Quant Urine WBC (Auto) Urine Creatinine 09/02/17 09/03/17 23:00 04:32 Hgb MCHC RDW [place] % (Auto) [place] # Seg Neutrophils % POC ABG pH Sodium Potassium 3.4 L 3.5 L Chloride 94.5 L Carbon Dioxide BUN Creatinine 0.5 L Glucose Calcium 8.2 L Phosphorus Magnesium Total Protein Albumin TSH Free T4 HCG, Quant Urine WBC (Auto) Urine Creatinine Laboratory Results - last 24 hr 09/02/17 09/02/17 09/03/17 18:28 23:00 04:32 Sodium 140 Potassium 3.4 L 3.4 L 3.5 L Chloride 94.5 L Carbon Dioxide 25 Anion Gap 24 BUN 11 Creatinine 0.5 L Estimated GFR > 60 BUN/Creatinine Ratio 22 Glucose 66 Calcium 8.2 L Magnesium 1.90
[2017-09-03] MEDS ORDERED: NACL 0.9% 1000 ML 1,000 ML IV SCH (09:00)
[2017-09-03] MEDS: VITAMIN B-6 PO SCH ×2 (09:26→20:06)
[2017-09-03 09:56] LABS: BUN/Creatinine Ratio 23; Blood Urea Nitrogen 9 mg/dL (7-17); Calcium 8.1 mg/dL (8.4-10.2); Hemolysis Index 9
[2017-09-03] MEDS: POTASSIUM CHLORIDE PO SCH ×2 (10:05→20:50)
[2017-09-03] MEDS: PROPYLTHIOURACIL PO SCH ×2 (10:05→21:04)
--- NOTE | 2017-09-03 10:20 | Progress Note ---
Assessment and Plan - Patient Problems (1) Hyperemesis gravidarum Current Visit: Yes Status: Acute Plan to address problem: NEUROSURGERY RESEARCH DIRECTOR on board, on telma jean baptiste, natali GI consulted for further evaluation of persistent nausea/vomiting, S/P right upper quadrant abdominal ultrasound-No Cholecystitis (2) Hypokalemia Current Visit: Yes Status: Acute Plan to address problem: Serum potassium level 3.1 today On potassium chloride 60 mEq (packet) orally twice a day Additional KCL 10 meq IV x 1 today Aldosterone/plasma renin ratio and plasma renin activity pending Strict intake and output Continue supportive therapy (3) Current Visit: Yes Status: Acute Plan to address problem: As per NEUROSURGERY RESEARCH DIRECTOR Subjective Date of service: 09/03/17 Principal diagnosis: 1) IUP at 8w6d 2) Hyperemesis 3) Severe hypokalemia 4) Morbid Obesity Interval history: Patient seen in bathroom brushing teeth. Ambulates well. States still nauseated. Objective - Vital Signs Vital signs: Vital Signs - 12hr 09/03/17 09/03/17 09/03/17 01:22 01:45 06:00 Temperature 98 F 97.9 F Pulse Rate 79 74 Respiratory 18 18 18 Rate Blood Pressure 122/63 121/57 [Right] O2 Sat by Pulse Oximetry 09/03/17 10:02 Temperature 99.0 F Pulse Rate 70 Respiratory 16 Rate Blood Pressure 144/87 [Right] O2 Sat by Pulse 98 Oximetry - General Appearance General appearance: well-developed, appears stated age EENT: ATNC, PERRL, hearing intact, vision intact Neck: no JVD, supple Respiratory: Present: Clear to Ascultation Cardiology: regular, S1S2 Gastrointestinal: normoactive bowel sounds, other (8 weeks ) Integumentary: warm and dry Neurologic: alert and oriented x3 Musculoskeletal: no deformities, no erythema, no cyanosis, no clubbing Psychiatric: cooperative - Lab 08/23/17 16:13 09/03/17 09:13 Most recent lab results Calcium 8.1 mg/dL (8.4-10.2) L 09/03/17 09:13 Phosphorus 2.90 mg/dL (2.5-4.5) 08/30/17 04:29 Magnesium 1.90 mg/dL (1.7-2.3) 09/03/17 04:32 Urine Creatinine 55.4 mg/dL (0.1-20.0) H 08/27/17 18:38
[2017-09-03] MEDS ORDERED: KCL 10MEQ/100ML 10 MEQ/100 ML BAG IV ONE (10:42)
[2017-09-03] MEDS ORDERED: KCL 10 MEQ in NACL 0.9% 100 ML IV SCH (12:00)
--- NOTE | 2017-09-03 12:47 | Gastroenterology Progress Note ---
Assessment and Plan - Patient Problems (1) Hyperemesis gravidarum Current Visit: Yes Status: Acute Subjective Date of service: 09/03/17 Principal diagnosis: Hyperemesis Objective - Constitutional Vitals: Temp Pulse Resp BP Pulse Ox 99.0 F 70 16 144/87 98 09/03/17 10:02 09/03/17 10:02 09/03/17 10:02 09/03/17 10:02 09/03/17 10:02 - Labs CBC & Chem 7: 08/23/17 16:13 09/03/17 09:13 Labs: Laboratory Results - last 24 hr 09/02/17 09/02/17 09/03/17 18:28 23:00 04:32 Sodium 140 Potassium 3.4 L 3.4 L 3.5 L Chloride 94.5 L Carbon Dioxide 25 Anion Gap 24 BUN 11 Creatinine 0.5 L Estimated GFR > 60 BUN/Creatinine Ratio 22 Glucose 66 Calcium 8.2 L Magnesium 1.90 09/03/17 09:13 Sodium 140 Potassium 3.1 L Chloride 96.8 L Carbon Dioxide 29 Anion Gap 17 BUN 9 Creatinine 0.4 L Estimated GFR > 60 BUN/Creatinine Ratio 23 Glucose 84 Calcium 8.1 L Magnesium
--- NOTE | 2017-09-03 18:12 | Progress Note ---
Assessment and Plan Assessment and plan: --Persistent hypokalemia; Replenished with protocol and monitor levels, Potassium is 3.1 this afternoon, replace additional 40 mEq by mouth 1 dose And we'll continue 60 mEq KCl every 12 as before Nephrology following. --Hyperemesis gravidarum; symptomatic management Management per DAIRY AND FOOD LABORATORY ASSISTANT and GI --Early 8 weeks / management per DAIRY AND FOOD LABORATORY ASSISTANT --Morbid obesity; BMI of 45.1 Counseling done --DVT prophylaxis; per primary team Plan of care discussed with the patient and her nurse Continue current management History Interval history: Patient seen and examined in her room medical records reviewed Patient's potassium remains low 3.5 this morning, received 1 mEq IV KCl, repeat potassium is 3.1 at noon Patient has mild nausea, tolerating food No new complaints Alert and awake oriented 3 ,not in acute distress Vital signs reviewed Hospitalist Physical - Constitutional Vitals: Temp Pulse Resp BP Pulse Ox 98.2 F 104 H 16 118/66 99 09/03/17 12:00 09/03/17 12:00 09/03/17 12:00 09/03/17 12:00 09/03/17 12:00 General appearance: Present: no acute distress, well-nourished, obese (morbidly obese) - EENT Eyes: Present: PERRL, EOM intact - Neck Neck: Present: supple, normal ROM - Respiratory Respiratory effort: normal Respiratory: negative: rales, rhonchi, wheezing - Cardiovascular Rhythm: regular Heart Sounds: Present: S1 & S2 - Extremities Extremities: no ischemia, No edema - Abdominal General gastrointestinal: soft, non-tender, non-distended, normal bowel sounds - Integumentary Integumentary: Present: clear, warm - Psychiatric Psychiatric: appropriate mood/affect, cooperative - Neurologic Neurologic: CNII-XII intact, moves all extremities Results - Labs CBC & Chem 7: 08/23/17 16:13 09/03/17 09:13 Labs: Laboratory Last Values WBC 10.0 K/mm3 (4.5-11.0) 08/23/17 16:13 RBC 4.84 M/mm3 (3.65-5.03) 08/23/17 16:13 Hgb 14.7 gm/dl (10.1-14.3) H 08/23/17 16:13 Hct 41.6 % (30.3-42.9) 08/23/17 16:13 MCV 86 fl (79-97) 08/23/17 16:13 MCH 30 pg (28-32) 08/23/17 16:13 MCHC 35 % (30-34) H 08/23/17 16:13 RDW 16.3 % (13.2-15.2) H 08/23/17 16:13 Plt Count 286 K/mm3 (140-440) 08/23/17 16:13 Lymph % (Auto) 15.1 % (13.4-35.0) 08/23/17 16:13 [place] % (Auto) 12.3 % (0.0-7.3) H 08/23/17 16:13 Eos % (Auto) 1.6 % (0.0-4.3) 08/23/17 16:13 Baso % (Auto) 0.3 % (0.0-1.8) 08/23/17 16:13 Lymph # 1.5 K/mm3 (1.2-5.4) 08/23/17 16:13 [place] # 1.2 K/mm3 (0.0-0.8) H 08/23/17 16:13 Eos # 0.2 K/mm3 (0.0-0.4) 08/23/17 16:13 Baso # 0.0 K/mm3 (0.0-0.1) 08/23/17 16:13 Seg Neutrophils % 70.7 % (40.0-70.0) H 08/23/17 16:13 Seg Neutrophils # 7.1 K/mm3 (1.8-7.7) 08/23/17 16:13 POC ABG pH 7.525 (7.35-7.45) H 08/27/17 11:17 POC ABG pCO2 35.5 (35-45) 08/27/17 11:17 POC ABG pO2 87 (80-105) 08/27/17 11:17 POC ABG HCO3 29.3 08/27/17 11:17 POC ABG Total CO2 30 08/27/17 11:17 POC ABG O2 Sat 98 08/27/17 11:17 POC ABG Base Excess 7 08/27/17 11:17 FiO2 21 % 08/27/17 11:17 Sodium 140 mmol/L (137-145) 09/03/17 09:13 Potassium 3.1 mmol/L (3.6-5.0) L 09/03/17 09:13 Chloride 96.8 mmol/L (98-107) L 09/03/17 09:13 Carbon Dioxide 29 mmol/L (22-30) 09/03/17 09:13 Anion Gap 17 mmol/L 09/03/17 09:13 BUN 9 mg/dL (7-17) 09/03/17 09:13 Creatinine 0.4 mg/dL (0.7-1.2) L 09/03/17 09:13 Estimated GFR > 60 ml/min 09/03/17 09:13 BUN/Creatinine Ratio 23 % 09/03/17 09:13 Glucose 84 mg/dL (65-100) 09/03/17 09:13 Hemoglobin A1c 4.7 % (4-6) 08/31/17 19:55 Calcium 8.1 mg/dL (8.4-10.2) L 09/03/17 09:13 Phosphorus 2.90 mg/dL (2.5-4.5) 08/30/17 04:29 Magnesium 1.90 mg/dL (1.7-2.3) 09/03/17 04:32 Total Bilirubin 0.20 mg/dL (0.1-1.2) 09/01/17 08:17 AST 13 units/L (5-40) 09/01/17 08:17 ALT 25 units/L (7-56) 09/01/17 08:17 Alkaline Phosphatase 53 units/L (35-129) 09/01/17 08:17 Total Protein 5.3 g/dL (6.3-8.2) L 09/01/17 08:17 Albumin 2.7 g/dL (3.9-5) L 09/01/17 08:17 Albumin/Globulin Ratio 1.0 % 09/01/17 08:17 Amylase 40 units/L (27-131) 08/23/17 16:13 Lipase 24 units/L (13-60) 08/23/17 16:13 TSH 0.063 mlU/mL (0.270-4.200) L 08/25/17 08:35 Free T4 2.08 ng/dL (0.76-1.46) H 08/25/17 08:35 Free T3 Index 3.1 pg/mL (2.3-4.2) 08/25/17 16:40 HCG, Quant 92549 mIU/mL (0-4) H 08/23/17 16:13 Urine Color [place] (Yellow) 08/23/17 20:45 Urine Turbidity Clear (Clear) 08/23/17 20:45 Urine pH 6.0 (5.0-7.0) 08/23/17 20:45 Ur Specific [place] 1.018 (1.003-1.030) 08/23/17 20:45 Urine Protein 30 mg/dl mg/dL (Negative) 08/23/17 20:45 Urine Glucose (UA) Neg mg/dL (Negative) 08/23/17 20:45 Urine Ketones 80 mg/dL (Negative) 08/23/17 20:45 Urine Blood Sm (Negative) 08/23/17 20:45 Urine Nitrite Neg (Negative) 08/23/17 20:45 Urine Bilirubin Neg (Negative) 08/23/17 20:45 Urine Urobilinogen 4.0 mg/dL (<2.0) 08/23/17 20:45 Ur Leukocyte Esterase Lg (Negative) 08/23/17 20:45 Urine WBC (Auto) 15.0 /HPF (0.0-6.0) H 08/23/17 20:45 Urine RBC (Auto) 5.0 /HPF (0.0-6.0) 08/23/17 20:45 U Epithel Cells (Auto) 6.0 /HPF (0-13.0) 08/23/17 20:45 Urine Bacteria (Auto) 1+ /HPF (Negative) 08/23/17 20:45 Urine Mucus Few /HPF 08/23/17 20:45 Urine Creatinine 55.4 mg/dL (0.1-20.0) H 08/27/17 18:38 Urine Potassium 27.60 mmol/L 08/27/17 18:38 Hepatitis A IgM Ab Non-reactive (NonReactive) 08/23/17 16:13 Hep Bs Antigen Non-reactive (Negative) 08/23/17 16:13 Hep B Core IgM Ab Non-reactive (NonReactive) 08/23/17 16:13 Hepatitis C Antibody Non-reactive (NonReactive) 08/23/17 16:13
[2017-09-03] MEDS ORDERED: K-DUR PO ONE (19:00)
--- NOTE | 2017-09-03 19:37 | Gastroenterology Progress Note ---
Assessment and Plan - Patient Problems (1) Hyperemesis gravidarum Current Visit: Yes Status: Acute Plan to address problem: - RUQ US negative for cholecystitis. - Will keep on low-dose pepcid for acid reflux. - OK to give current antiemetics as no actual vomiting (except with KCl). - She has no emesis, only nausea, and is tolerating her meals; will sign off for now; please call if further evaluation needed. Subjective Date of service: 09/03/17 Principal diagnosis: Hyperemesis Interval history: The patient c/o of nausea, but entire lunch tray eating today without emesis. She has no blood in the stools, or severe abdominal pain. She denies reflux. Objective - Constitutional Vitals: Temp Pulse Resp BP Pulse Ox 98.2 F 104 H 16 118/66 99 09/03/17 12:00 09/03/17 12:00 09/03/17 12:00 09/03/17 12:00 09/03/17 12:00 General appearance: no acute distress - Respiratory Respiratory effort: normal Respiratory: bilateral: CTA - Cardiovascular Rhythm: regular Heart Sounds: Present: S1 & S2 - Gastrointestinal General gastrointestinal: Present: soft, non-tender, non-distended - Labs CBC & Chem 7: 08/23/17 16:13 09/03/17 09:13 Labs: Laboratory Results - last 24 hr 09/02/17 09/03/17 09/03/17 23:00 04:32 09:13 Sodium 140 140 Potassium 3.4 L 3.5 L 3.1 L Chloride 94.5 L 96.8 L Carbon Dioxide 25 29 Anion Gap 24 17 BUN 11 9 Creatinine 0.5 L 0.4 L Estimated GFR > 60 > 60 BUN/Creatinine Ratio 22 23 Glucose 66 84 Calcium 8.2 L 8.1 L Magnesium 1.90
[2017-09-03] MEDS: ZOFRAN IV PRN (20:55)
[2017-09-04] MEDS ORDERED: KCL 10MEQ/100ML 10 MEQ/100 ML BAG IV SCH (08:00)
[2017-09-04 08:47] LABS: BUN/Creatinine Ratio 20; Blood Urea Nitrogen 8 mg/dL (7-17); Calcium 7.7 mg/dL (8.4-10.2); Hemolysis Index 8
--- NOTE | 2017-09-04 08:58 | Progress Note ---
Assessment and Plan HD#12 --Hyperemesis gravidarum; mild improvement of symptoms appreciate GI recommendations tolerated diet just nausea no vomiting this am but 2x last night potassium this am is 3.4 GI team signed off --Persistent hypokalemia on oral but unable to take vomited yesterday follow nephrology recommendations --Morbid obesity; BMI of 45.1 Counseling done --DVT prophylaxis; per primary team Subjective - Subjective Date of service: 09/04/17 Principal diagnosis: Hyperemesis Patient reports: no new complaints (continued nausea. Tolerating small amount of solids), no loss of fluid, no vaginal bleeding, no contractions Objective - Vital Signs Vital Signs: Vital Signs - 12hr 09/03/17 23:59 Temperature 98.4 F Pulse Rate 96 H Respiratory 20 Rate Blood Pressure 101/56 O2 Sat by Pulse 96 Oximetry - Exam Breasts: normal Cardiovascular: Regular rate Abdomen: Present: normal appearance, soft, normal bowel sounds. Absent: distention, tenderness Uterus: Present: normal - Labs Labs: Abnormal Labs 08/23/17 08/23/17 08/23/17 16:13 16:13 16:13 Hgb 14.7 H MCHC 35 H RDW 16.3 H [place] % (Auto) 12.3 H [place] # 1.2 H Seg Neutrophils % 70.7 H POC ABG pH Sodium Potassium Chloride Carbon Dioxide BUN Creatinine Glucose Calcium Phosphorus Magnesium Total Protein Albumin TSH 0.086 L Free T4 HCG, Quant 64253 H Urine WBC (Auto) Urine Creatinine 08/23/17 08/23/17 08/24/17 16:13 20:45 14:50 Hgb MCHC RDW [place] % (Auto) [place] # Seg Neutrophils % POC ABG pH Sodium 136 L Potassium 2.6 L* 3.3 L D Chloride 89.2 L Carbon Dioxide BUN 6 L Creatinine 0.6 L 0.5 L Glucose Calcium 7.9 L D Phosphorus Magnesium Total Protein Albumin TSH Free T4 HCG, Quant Urine WBC (Auto) 15.0 H Urine Creatinine 08/25/17 08/25/17 08/25/17 08:35 08:35 12:33 Hgb MCHC RDW [place] % (Auto) [place] # Seg Neutrophils % POC ABG pH Sodium Potassium 2.4 L* D 2.8 L* Chloride 110.9 H Carbon Dioxide 18 L D BUN 3 L Creatinine 0.3 L Glucose 136 H Calcium 6.2 L D Phosphorus Magnesium Total Protein Albumin TSH 0.063 L Free T4 2.08 H HCG, Quant Urine WBC (Auto) Urine Creatinine 08/25/17 08/25/17 08/26/17 16:40 22:41 07:02 Hgb MCHC RDW [place] % (Auto) [place] # Seg Neutrophils % POC ABG pH Sodium Potassium 3.0 L 2.9 L* 2.9 L* Chloride Carbon Dioxide BUN Creatinine Glucose Calcium Phosphorus Magnesium Total Protein Albumin TSH Free T4 HCG, Quant Urine WBC (Auto) Urine Creatinine 08/26/17 08/27/17 08/27/17 12:21 03:00 11:17 Hgb MCHC RDW [place] % (Auto) [place] # Seg Neutrophils % POC ABG pH 7.525 H Sodium Potassium 2.6 L* Chloride Carbon Dioxide BUN 2 L Creatinine 0.4 L Glucose 142 H Calcium 7.8 L D Phosphorus Magnesium 1.50 L Total Protein Albumin TSH Free T4 HCG, Quant Urine WBC (Auto) Urine Creatinine 08/27/17 08/27/17 08/27/17 18:35 18:38 20:56 Hgb MCH RDW [place] % (Auto) [place] # Seg Neutrophils % POC ABG pH Sodium Potassium 2.4 L* 2.8 L* Chloride Carbon Dioxide BUN 4 L Creatinine 0.5 L Glucose 149 H Calcium 7.7 L Phosphorus 2.00 L Magnesium Total Protein Albumin TSH Free T4 HCG, Quant Urine WBC (Auto) Urine Creatinine 55.4 H 08/28/17 08/28/17 08/28/17 07:02 15:32 22:00 Hgb MCH RDW [place] % (Auto) [place] # Seg Neutrophils % POC ABG pH Sodium Potassium 3.0 L 2.5 L* 2.8 L* Chloride Carbon Dioxide BUN 4 L Creatinine 0.4 L Glucose 125 H Calcium 7.8 L Phosphorus Magnesium Total Protein Albumin TSH Free T4 HCG, Quant Urine WBC (Auto) Urine Creatinine 08/29/17 08/29/17 08/30/17 06:04 21:34 04:29 Hgb MCHC RDW [place] % (Auto) [place] # Seg Neutrophils % POC ABG pH Sodium Potassium 3.0 L 2.5 L* 2.7 L* Chloride Carbon Dioxide BUN 5 L Creatinine 0.5 L 0.4 L Glucose 106 H Calcium 7.7 L 7.6 L Phosphorus Magnesium Total Protein Albumin TSH Free T4 HCG, Quant Urine WBC (Auto) Urine Creatinine 08/30/17 08/30/17 08/31/17 17:53 22:37 04:10 Hgb MCHC RDW [place] % (Auto) [place] # Seg Neutrophils % POC ABG pH Sodium Potassium 3.0 L 3.0 L 3.0 L Chloride Carbon Dioxide BUN 6 L 6 L Creatinine 0.4 L 0.4 L Glucose 113 H 140 H Calcium 7.7 L 7.9 L Phosphorus Magnesium Total Protein Albumin TSH Free T4 HCG, Quant Urine WBC (Auto) Urine Creatinine 08/31/17 08/31/17 09/01/17 14:47 22:45 00:24 Hgb MCHC RDW [place] % (Auto) [place] # Seg Neutrophils % POC ABG pH Sodium Potassium 2.7 L* 2.8 L* 2.8 L* Chloride Carbon Dioxide BUN Creatinine Glucose Calcium Phosphorus Magnesium Total Protein Albumin TSH Free T4 HCG, Quant Urine WBC (Auto) Urine Creatinine 09/01/17 09/01/17 09/01/17 04:53 08:17 08:17 Hgb MCHC RDW [place] % (Auto) [place] # Seg Neutrophils % POC ABG pH Sodium Potassium 3.2 L 3.0 L 3.0 L Chloride Carbon Dioxide BUN 6 L 5 L Creatinine 0.4 L 0.4 L Glucose 106 H 103 H Calcium 7.8 L 8.0 L Phosphorus Magnesium Total Protein 5.3 L Albumin 2.7 L TSH Free T4 HCG, Quant Urine WBC (Auto) Urine Creatinine 09/01/17 09/02/17 09/02/17 22:37 05:24 18:28 Hgb MCHC RDW [place] % (Auto) [place] # Seg Neutrophils % POC ABG pH Sodium 136 L Potassium 3.0 L 3.1 L 3.4 L Chloride 96.6 L Carbon Dioxide BUN Creatinine 0.4 L Glucose 122 H Calcium 7.8 L Phosphorus Magnesium Total Protein Albumin TSH Free T4 HCG, Quant Urine WBC (Auto) Urine Creatinine 09/02/17 09/03/17 09/03/17 23:00 04:32 09:13 Hgb MCHC RDW [place] % (Auto) [place] # Seg Neutrophils % POC ABG pH Sodium Potassium 3.4 L 3.5 L 3.1 L Chloride 94.5 L 96.8 L Carbon Dioxide BUN Creatinine 0.5 L 0.4 L Glucose Calcium 8.2 L 8.1 L Phosphorus Magnesium Total Protein Albumin TSH Free T4 HCG, Quant Urine WBC (Auto) Urine Creatinine 09/03/17 09/04/17 21:47 08:11 Hgb MCHC RDW [place] % (Auto) [place] # Seg Neutrophils % POC ABG pH Sodium Potassium 2.9 L* 3.4 L Chloride Carbon Dioxide BUN Creatinine 0.4 L Glucose Calcium 7.7 L Phosphorus Magnesium Total Protein Albumin TSH Free T4 HCG, Quant Urine WBC (Auto) Urine Creatinine Laboratory Results - last 24 hr 09/03/17 09/03/17 09/04/17 09:13 21:47 08:11 Sodium 140 141 Potassium 3.1 L 2.9 L* 3.4 L Chloride 96.8 L 102.1 Carbon Dioxide 29 28 Anion Gap 17 14 BUN 9 8 Creatinine 0.4 L 0.4 L Estimated GFR > 60 > 60 BUN/Creatinine Ratio 23 20 Glucose 84 84 Calcium 8.1 L 7.7 L Magnesium 1.80
[2017-09-04] MEDS ORDERED: K-DUR PO ONE (10:00)
[2017-09-04 10:21] VITALS: BP 122/67
[2017-09-04] MEDS: POTASSIUM CHLORIDE PO SCH (10:59)
[2017-09-04] MEDS: VITAMIN B-6 PO SCH (11:00)
[2017-09-04] MEDS: PRENATAL VITAMIN PO SCH (11:01)
[2017-09-04] MEDS: PROPYLTHIOURACIL PO SCH (11:02)
[2017-09-04] MEDS: REGLAN IV SCH (11:15)
--- NOTE | 2017-09-04 11:26 | Progress Note ---
Assessment and Plan - Patient Problems (1) Hyperemesis gravidarum Current Visit: Yes Status: Acute Plan to address problem: APPLE PICKER on board, on reglan, zofran, compazine S/p Right upper quafrant ultrasound negative for cholecystitis, GI signed off Follow up recs (2) Hypokalemia Current Visit: Yes Status: Acute Plan to address problem: Hypokalemia multifactorial secondary to inadequate dietary potassium oral intake worsened in setting of persistent vomiting, hypomagnesemia, and metabolic alkalosis, will f/u pending labs for further evaluation of hypokalemia Serum potassium level increased to 3.4 today, yesterday's serum potassium level was 2.9 Ok for patient to discharge home on potassium chloride 40 mEq (packet) orally twice a day, follow up with our nephrology practice next week. We will repeat lab work in our office to evaluate potassium level, f/u pending labs, and make additional adjustments if needed Aldosterone/plasma renin ratio and plasma renin activity pending, f/u as outpatient Strict intake and output Renal plan discussed with Dr Hilliard Continue supportive therapy (3) Current Visit: Yes Status: Acute Plan to address problem: As per APPLE PICKER Subjective Date of service: 09/04/17 Principal diagnosis: Hyperemesis Interval history: Patient reports having nausea today, had two episodes of vomiting last night, states she sometimes vomits after potassium packets, but not every time, and she tolerates packets better than tablets. No acute distress, no family at bedside Objective - Vital Signs Vital signs: Vital Signs - 12hr 09/03/17 09/04/17 23:59 08:16 Temperature 98.4 F 98.2 F Pulse Rate 96 H 77 Respiratory 20 18 Rate Blood Pressure 101/56 Blood Pressure 122/67 [Right] O2 Sat by Pulse 96 98 Oximetry - General Appearance General appearance: well-developed EENT: ATNC Neck: no JVD Respiratory: Present: Clear to Ascultation Cardiology: regular, S1S2 Gastrointestinal: normoactive bowel sounds, no tenderness Integumentary: warm and dry Neurologic: alert and oriented x3 Musculoskeletal: other (trace edema to both lower extremities) Psychiatric: mood/affect appropriate, cooperative - Lab 08/23/17 16:13 09/04/17 08:11 Most recent lab results Calcium 7.7 mg/dL (8.4-10.2) L 09/04/17 08:11 Phosphorus 2.90 mg/dL (2.5-4.5) 08/30/17 04:29 Magnesium 1.80 mg/dL (1.7-2.3) 09/04/17 08:11 Urine Creatinine 55.4 mg/dL (0.1-20.0) H 08/27/17 18:38
--- NOTE | 2017-09-04 12:14 | Event Note ---
Date: 09/04/17 Reviewed notes and consults from Nephrology and medicines. will discharge home on current regimen with f/u with OB next week, nephrology next week with repeat labs. All questions answered
--- NOTE | 2017-09-04 12:25 | Discharge Summary ---
Providers - Providers Date of Admission: 08/23/17 15:04 Date of discharge: 09/04/17 Attending physician: KAILYN GARCIA 08/23/17 Consult to Case Management [CONS] Routine Services Needed at Discharge: Home Health Services Notified:: no Additional Physician Instructions: Needs referral done while admitted for Alere Reglan or Zofran pump 08/24/17 08:00 Consult to Dietitian/Nutrition [CONS] Routine Physician Instructions: Reason For Exam: Reason for Consult: Poor oral intake 08/27/17 08:46 Consult to Physician [CONS] Routine Consulting Provider: FELIPE COWAN Reason For Exam: Persistent hypokalemia Place consult to:: [place] Notified:: yes Phone number called:: [phone] Was contact made?: Yes If yes, spoke with:: Dr. Cowan Time called:: 08:45 Comment:: doctor was notified and will come to see patient 09/01/17 10:33 Consult to Physician [CONS] Routine Consulting Provider: KULDEEP PEREZ Reason For Exam: Persistent nausea and vomiting, hypokalemia Primary care physician: LEELA RODAS Hospitalization Reason for admission: other (Hyperemesis, IUP first trimester, hypokalemia, ) Discharge diagnosis: other (Hyperemesis gravidarum, hypokalemia ) Hospital course: Patient was admitted and consults obtained for hyperemesis gravidarum. Electrolytes and reviewed and noted to be hypokalemic. Despite several runs of IV runs of KCL continued low values. Nephrology contacted, GI and medicine contacted. US performed showing sludege no cholecystitis. Gi agrees with current mgt and signed off with follow up in outpatient . Nephrology will await send out labs renin and aldosterone and recommended discharge with 40mEQ daily with po packets as pill was intolerable. Nutrition consult recommended as patient began overeating. Patient last K level in normal range. Patient will have f/u with above specialties. Discharged in stable condition. Condition at discharge: Good Disposition: DC-01 TO HOME OR SELFCARE Plan - Provider Discharge Summary Activity: routine Diet: routine Instructions: routine Additional instructions: [] Smoking cessation referral if applicable(refer to patient education folder for contact #) [] Refer to [facility] Booklet Call your doctor immediately for: * Fever > 100.5 * Heavy vaginal bleeding ( >1 pad per hour) * Severe persistent headache * Shortness of breath * Reddened, hot, painful area to leg or breast * Drainage or odor from incision. * Keep incision clean and dry at all times and follow doctor's instructions regarding bathing/showering - Follow up plan Follow up: LEELA RODAS MD [Primary Care Provider] - 7 Days WOOD VALENZUELA MD [Staff Physician] - 7 Days
--- NOTE | 2017-09-04 18:45 | Progress Note ---
Assessment and Plan Assessment and plan: --Persistent hypokalemia; Symptoms have significantly improved to 3.4 today Continue oral KCl, nephrology following --Hyperemesis gravidarum; symptoms significantly improved Management per ASSISTANT DESIGNER and GI --Early 8 weeks / management per ASSISTANT DESIGNER --Morbid obesity; BMI of 45.1 Counseling done --DVT prophylaxis; per primary team Continue current management Disposition per ASSOCIATE PROFESSOR OF SOCIOLOGY and nephrology Thank you for this consult History Interval history: Patient seen and examined medical history reviewed Patient seems likely but in no new complaints Potassium is significantly improved to 3.4 today On oral potassium Vital signs reviewed Hospitalist Physical - Constitutional Vitals: Temp Pulse Resp BP Pulse Ox 98.2 F 77 18 122/67 98 09/04/17 08:16 09/04/17 08:16 09/04/17 08:16 09/04/17 08:16 09/04/17 08:16 General appearance: Present: no acute distress, well-nourished, obese (morbidly obese) - EENT Eyes: Present: PERRL, EOM intact - Neck Neck: Present: supple, normal ROM - Respiratory Respiratory effort: normal Respiratory: negative: rales, rhonchi, wheezing - Cardiovascular Rhythm: regular Heart Sounds: Present: S1 & S2 - Extremities Extremities: no ischemia, No edema - Abdominal General gastrointestinal: soft, non-tender, non-distended, normal bowel sounds - Integumentary Integumentary: Present: clear, warm - Psychiatric Psychiatric: appropriate mood/affect, cooperative - Neurologic Neurologic: CNII-XII intact, moves all extremities Results - Labs CBC & Chem 7: 08/23/17 16:13 09/04/17 08:11 Labs: Laboratory Last Values WBC 10.0 K/mm3 (4.5-11.0) 08/23/17 16:13 RBC 4.84 M/mm3 (3.65-5.03) 08/23/17 16:13 Hgb 14.7 gm/dl (10.1-14.3) H 08/23/17 16:13 Hct 41.6 % (30.3-42.9) 08/23/17 16:13 MCV 86 fl (79-97) 08/23/17 16:13 MCH 30 pg (28-32) 08/23/17 16:13 MCHC 35 % (30-34) H 08/23/17 16:13 RDW 16.3 % (13.2-15.2) H 08/23/17 16:13 Plt Count 286 K/mm3 (140-440) 08/23/17 16:13 Lymph % (Auto) 15.1 % (13.4-35.0) 08/23/17 16:13 [place] % (Auto) 12.3 % (0.0-7.3) H 08/23/17 16:13 Eos % (Auto) 1.6 % (0.0-4.3) 08/23/17 16:13 Baso % (Auto) 0.3 % (0.0-1.8) 08/23/17 16:13 Lymph # 1.5 K/mm3 (1.2-5.4) 08/23/17 16:13 [place] # 1.2 K/mm3 (0.0-0.8) H 08/23/17 16:13 Eos # 0.2 K/mm3 (0.0-0.4) 08/23/17 16:13 Baso # 0.0 K/mm3 (0.0-0.1) 08/23/17 16:13 Seg Neutrophils % 70.7 % (40.0-70.0) H 08/23/17 16:13 Seg Neutrophils # 7.1 K/mm3 (1.8-7.7) 08/23/17 16:13 POC ABG pH 7.525 (7.35-7.45) H 08/27/17 11:17 POC ABG pCO2 35.5 (35-45) 08/27/17 11:17 POC ABG pO2 87 (80-105) 08/27/17 11:17 POC ABG HCO3 29.3 08/27/17 11:17 POC ABG Total CO2 30 08/27/17 11:17 POC ABG O2 Sat 98 08/27/17 11:17 POC ABG Base Excess 7 08/27/17 11:17 FiO2 21 % 08/27/17 11:17 Sodium 141 mmol/L (137-145) 09/04/17 08:11 Potassium 3.4 mmol/L (3.6-5.0) L 09/04/17 08:11 Chloride 102.1 mmol/L (98-107) 09/04/17 08:11 Carbon Dioxide 28 mmol/L (22-30) 09/04/17 08:11 Anion Gap 14 mmol/L 09/04/17 08:11 BUN 8 mg/dL (7-17) 09/04/17 08:11 Creatinine 0.4 mg/dL (0.7-1.2) L 09/04/17 08:11 Estimated GFR > 60 ml/min 09/04/17 08:11 BUN/Creatinine Ratio 20 % 09/04/17 08:11 Glucose 84 mg/dL (65-100) 09/04/17 08:11 Hemoglobin A1c 4.7 % (4-6) 08/31/17 19:55 Calcium 7.7 mg/dL (8.4-10.2) L 09/04/17 08:11 Phosphorus 2.90 mg/dL (2.5-4.5) 08/30/17 04:29 Magnesium 1.80 mg/dL (1.7-2.3) 09/04/17 08:11 Total Bilirubin 0.20 mg/dL (0.1-1.2) 09/01/17 08:17 AST 13 units/L (5-40) 09/01/17 08:17 ALT 25 units/L (7-56) 09/01/17 08:17 Alkaline Phosphatase 53 units/L (35-129) 09/01/17 08:17 Total Protein 5.3 g/dL (6.3-8.2) L 09/01/17 08:17 Albumin 2.7 g/dL (3.9-5) L 09/01/17 08:17 Albumin/Globulin Ratio 1.0 % 09/01/17 08:17 Amylase 40 units/L (27-131) 08/23/17 16:13 Lipase 24 units/L (13-60) 08/23/17 16:13 Renin Activity 0.79 ng/mL/h (0.25-5.82) 08/31/17 16:48 TSH 0.063 mlU/mL (0.270-4.200) L 08/25/17 08:35 Free T4 2.08 ng/dL (0.76-1.46) H 08/25/17 08:35 Free T3 Index 3.1 pg/mL (2.3-4.2) 08/25/17 16:40 HCG, Quant 41599 mIU/mL (0-4) H 08/23/17 16:13 Urine Color [place] (Yellow) 08/23/17 20:45 Urine Turbidity Clear (Clear) 08/23/17 20:45 Urine pH 6.0 (5.0-7.0) 08/23/17 20:45 Ur Specific [place] 1.018 (1.003-1.030) 08/23/17 20:45 Urine Protein 30 mg/dl mg/dL (Negative) 08/23/17 20:45 Urine Glucose (UA) Neg mg/dL (Negative) 08/23/17 20:45 Urine Ketones 80 mg/dL (Negative) 08/23/17 20:45 Urine Blood Sm (Negative) 08/23/17 20:45 Urine Nitrite Neg (Negative) 08/23/17 20:45 Urine Bilirubin Neg (Negative) 08/23/17 20:45 Urine Urobilinogen 4.0 mg/dL (<2.0) 08/23/17 20:45 Ur Leukocyte Esterase Lg (Negative) 08/23/17 20:45 Urine WBC (Auto) 15.0 /HPF (0.0-6.0) H 08/23/17 20:45 Urine RBC (Auto) 5.0 /HPF (0.0-6.0) 08/23/17 20:45 U Epithel Cells (Auto) 6.0 /HPF (0-13.0) 08/23/17 20:45 Urine Bacteria (Auto) 1+ /HPF (Negative) 08/23/17 20:45 Urine Mucus Few /HPF 08/23/17 20:45 Urine Creatinine 55.4 mg/dL (0.1-20.0) H 08/27/17 18:38 Urine Potassium 27.60 mmol/L 08/27/17 18:38 Hepatitis A IgM Ab Non-reactive (NonReactive) 08/23/17 16:13 Hep Bs Antigen Non-reactive (Negative) 08/23/17 16: Hep B Core IgM Ab Non-reactive (NonReactive) 08/23/17 16:13 Hepatitis C Antibody Non-reactive (NonReactive) 08/23/17 16:13
[2017-09-05 15:48] LABS: Aldo/Plasma Renin Act Ratio 2.5 Ratio (0.9-28.9)
== END 2017-09-04 14:50 | disposition home or self-care (01) | DRG 781 ==
LOC: 3A 14:26 → UNDOADMIN 14:26 → OB 15:04
PROVIDERS: ADMIT Obstetrics & Gynecology; ATTEND Internal Medicine
DX: O21.0 Mild hyperemesis gravidarum (principal); E86.0 Dehydration; O26.891 Other specified pregnancy related conditions, first trimester; E87.6 Hypokalemia; O99.211 Obesity complicating pregnancy, first trimester; E66.01 Morbid (severe) obesity due to excess calories; O99.281 Endocrine, nutritional and metabolic diseases complicating pregnancy, first trimester; E05.90 Thyrotoxicosis, unspecified without thyrotoxic crisis or storm; E83.42 Hypomagnesemia; E83.39 Other disorders of phosphorus metabolism; Z68.42 Body mass index [BMI] 45.0-49.9, adult; Z83.3 Family history of diabetes mellitus; Z80.9 Family history of malignant neoplasm, unspecified; Z3A.01 Less than 8 weeks gestation of pregnancy
CPT/HCPCS: 36415; 36600; 76705; 80048; 80053; 80074; 81001; 82088; 82150; 82570; 82803; 83036; 83690; 83735; 84100; 84132; 84133; 84244; 84439; 84443; 84481; 84702; 85025; 87086; J0780; J1720; J2405; J2765; J3475; J3480; J7030; J7040; J7050; J7121

== ENCOUNTER 2017-10-19 07:08 | Emergency (ER) | payer MEDICAID, OTHER ==
[2017-10-19 07:48] VITALS: BP 114/75
[2017-10-19 08:11] LABS: Basophils % (Auto) 0.3 % (0.0-1.8); Eosinophils # (Auto) 0.3 K/mm3 (0.0-0.4); Eosinophils % (Auto) 4.5 % (0.0-4.3); Hematocrit 35.2 % (30.3-42.9); Hemoglobin 11.9 gm/dl (10.1-14.3); Lymphocytes # (Auto) 0.8 K/mm3 (1.2-5.4); Lymphocytes % (Auto) 13.3 % (13.4-35.0); Mean Corpuscular HGB Conc 34 % (30-34); Mean Corpuscular Hemoglobin 30 pg (28-32); Mean Corpuscular Volume 89 fl (79-97); Monocytes # (Auto) 0.7 K/mm3 (0.0-0.8); Platelet Count 233 K/mm3 (140-440); Red Blood Count 3.98 M/mm3 (3.65-5.03)
[2017-10-19 08:25] LABS: Bacteria,Urine 3+ /HPF (Negative); Bilirubin,Urine NEG (Negative); Blood,Urine NEG (Negative); Color,Urine Amber (Yellow); Mucus,Urine 3+ /HPF; Urobilinogen,Urine < 2.0 mg/dL (<2.0)
[2017-10-19 10:08] LABS: Alanine Aminotransferase 6 units/L (7-56); Albumin 3.3 g/dL (3.9-5); BUN/Creatinine Ratio 8; Blood Urea Nitrogen 5 mg/dL (7-17); Hemolysis Index 1
== END 2017-10-19 17:35 | disposition left against medical advice (07) ==
LOC: ED 07:08
DX: R07.89 Other chest pain (principal); Z53.21 Procedure and treatment not carried out due to patient leaving prior to being seen by health care provider
CPT/HCPCS: 36415; 80053; 81001; 84702; 84703; 85025

== ENCOUNTER 2018-01-24 09:54 | Inpatient (IN) | payer MEDICAID, OTHER ==
[2018-01-24] MEDS ORDERED: VISTARIL IM ONE (10:27)
[2018-01-24] MEDS ORDERED: ZOFRAN IV PRN (10:27)
[2018-01-24] MEDS ORDERED: TRANSDERM-SCOP TD NR (10:27)
[2018-01-24] MEDS ORDERED: D5LR 1,000 ML IV SCH ×2 (11:00)
[2018-01-24] MEDS ORDERED: PHENERGAN PR SCH (11:00)
[2018-01-24] MEDS: REGLAN IV SCH (12:37)
--- NOTE | 2018-01-24 13:43 | History and Physical Report ---
History of Present Illness Date of examination: 01/24/18 Date of admission: 01/24/18 10:47 History of present illness: 37 yo LMP EDC 04/15/18 @ 28.6 weeks gestation presented to office for routine OB appt with c/o severe nausea with vomiting x 3 days. 4lbs weight loss and 4+ ketones. Voiced unable to tolerate diet including liquids or solids. Entry into care at 6 weeks gestation. Severe hyperemesis with admission 08/23- received Zofran pump and po antiemetic. Positive chlamydia with negative MARISELA. Past History Past Medical History: other (fibroids) Past Surgical History: myomectomy, other (D&C) Social history: no significant social history - Obstetrical History Expected Date of Delivery: 04/12/18 Actual Gestation: 28 Week(s) 6 Day(s) : 3 Para: 2 Hx # Term Pregnancies: 2 Spontaneous Abortions: 2 Number of Living Children: 2 Medications and Allergies Allergies Allergy/AdvReac Type Severity Reaction Status Date / Time promethazine HCl Allergy Vomiting Verified 06/29/15 23:28 [From Phenergan] Home Medications Medication Instructions Recorded Confirmed Last Taken Type Ondansetron [Zofran Odt] 4 mg PO Q8HR PRN #12 tab.rapdis 08/14/17 01/24/18 Unknown Rx Active Meds: Active Medications Dextrose/Lactated Ringer's (D5lr) 1,000 mls @ 500 mls/hr IV DIRECT KINGS Stop: 01/25/18 12:59 Dextrose/Lactated Ringer's (D5lr) 1,000 mls @ 150 mls/hr IV DIRECT KINGS Metoclopramide HCl (Reglan) 10 mg IV Q6H [facility]INGS Last Admin: 01/24/18 12:37 Dose: 10 mg Multivitamins/Iron/Calcium ( Vitamin) 1 each PO QDAY [facility] Ondansetron HCl (Zofran) 4 mg IV Q6H PRN PRN Reason: N/V unrelieved by Reglan Promethazine HCl (Phenergan) [address] Q6H [facility] Scopolamine (Transderm-Scop) 1 each TD ONCE NR Stop: 01/27/18 10:26 Last Admin: 01/24/18 11:40 Dose: 1 each - Vital Signs Vital signs: Vital Signs Temp Pulse Resp BP Pulse Ox 98.4 F 90 24 124/82 98 01/24/18 11:33 01/24/18 11:33 01/24/18 11:33 01/24/18 11:33 01/24/18 11:33 Temp Pulse Resp BP Pulse Ox 98.4 F 101 H 24 122/67 99 01/24/18 11:33 01/24/18 12:52 01/24/18 11:33 01/24/18 12:52 01/24/18 12:52 - Obstetrical FHR: category 1 Uterine Contraction Monitor Mode: External Results All other labs normal. Assessment and Plan O: Labs pending A: IUP at 28.6 weeks gestation Hyperemesis P: IV hydration Antiemetic
[2018-01-24 13:53] LABS: BUN/Creatinine Ratio 10; Blood Urea Nitrogen 4 mg/dL (7-17); Calcium 8.6 mg/dL (8.4-10.2); Hemolysis Index 6
[2018-01-24 13:54] LABS: Lipase 16 units/L (13-60)
[2018-01-24 14:03] LABS: Hepatitis A Antibody IgM Non-Reactive (NonReactive); Hepatitis B Core IgM Non-Reactive (NonReactive); Hepatitis B Surface Antigen Non-Reactive (Negative); Hepatitis C Virus Antibody Non-Reactive (NonReactive)
--- NOTE | 2018-01-24 18:06 | Ultrasound Report ---
FINAL REPORT PROCEDURE: Limited abdominal ultrasound. TECHNIQUE: Real-time sonography was performed of the right upper quadrant of the abdomen with image documentation. CPT 85370 HISTORY: Twenty-eight weeks , nausea and vomiting, please assess gallbladder. COMPARISON: No prior studies are available for comparison. FINDINGS: The liver has uniform echogenicity without focal masses. There is no biliary dilatation. The common hepatic duct measures 2.0 millimeters. The gallbladder is adequately distended with normal wall thickness. There is a tiny gallstone. The technologist did not report if the patient was tender over the gallbladder. The pancreas appears normal. The right kidney is normal in size and has normal echogenicity. The proximal portion of the abdominal aorta has a normal caliber. IMPRESSION: Minimal cholelithiasis.
--- NOTE | 2018-01-24 18:16 | Procedure Note ---
OB Delivery Note - Delivery Date of Delivery: 01/24/18 Surgeon: WOOD VALENZUELA - Vaginal Delivery presentation: vertex Delivery position: OA Delivery induction: none Delivery augmentation: rupture of membranes, pitocin Delivery monitor: none Route of delivery: Delivery placenta: spontaneous Delivery cord: 3 umbilical vessels Episiotomy: none Delivery laceration: none Anesthesia: none Delivery comments: Patient was noted to be and head on the bed. Nancie chani CNM arrived to room to deliver body easily at 1727 . The cord was clamped and cut. The placenta delivered intact with 3 vessel at 1730. There were no lacs noted. Patient tolerated procedure well. The weight of the baby Apgars noted 8 and 9 . All needles and laps counts correct x2.
[2018-01-24] MEDS ORDERED: TYLENOL PO PRN ×2 (18:17→19:03)
[2018-01-24] MEDS ORDERED: DULCOLAX PR PRN (18:17)
[2018-01-24] MEDS ORDERED: TORADOL IV PRN (18:17)
[2018-01-24] MEDS ORDERED: PHENERGAN PO PRN (18:17)
[2018-01-24] MEDS ORDERED: PERCOCET 5/325 PO PRN (18:17)
[2018-01-24] MEDS ORDERED: NORCO 5/325 PO PRN (18:17)
[2018-01-24] MEDS ORDERED: LANSINOH TP PRN (18:17)
[2018-01-24] MEDS ORDERED: MILK OF MAGNESIA PO PRN (18:17)
[2018-01-24] MEDS ORDERED: BENADRYL PO PRN (18:17)
[2018-01-24] MEDS ORDERED: TUCKS PAD TP PRN (18:17)
[2018-01-24] MEDS ORDERED: PHENERGAN PR PRN (18:17)
[2018-01-24] MEDS ORDERED: PITOCin/NS 20 UNIT/1000ML DRIP 20 UNITS/1,000 ML BAG IV SCH (19:00)
[2018-01-24] MEDS ORDERED: MOTRIN PO SCH (19:00)
[2018-01-24] MEDS ORDERED: SODIUM CHLORIDE FLUSH SYRINGE 10 ML IV NR (19:00)
[2018-01-24] MEDS ORDERED: COLACE PO PRN (19:03)
[2018-01-24] MEDS ORDERED: SUBLIMAZE IV ONE (19:32)
[2018-01-24] MEDS ORDERED: POLYCILLIN/NS 2 GM/100 ML 2 GM/100 ML BAG IV SCH (20:00)
[2018-01-24] MEDS: AMBIEN PO PRN (23:36)
[2018-01-25] MEDS: LACTATED RINGERS 1,000 ML IV SCH (01:36)
[2018-01-25] MEDS ORDERED: M-M-R II VACCINE SUB-Q ONE (06:00)
[2018-01-25] MEDS ORDERED: BOOSTRIX IM ONE (06:00)
[2018-01-25 06:18] LABS: Hematocrit 27.2 % (30.3-42.9); Hemoglobin 9.1 gm/dl (10.1-14.3)
--- NOTE | 2018-01-25 08:04 | Progress Note ---
Assessment and Plan A/P IUP 29 weeks gall stones nausea and vomiting improved since yesterday await GI consult replace K and IVF continued continue present mgt Subjective - Subjective Date of service: 01/25/18 Principal diagnosis: ABDOMINAL PAIN AND NAUSEA AND VOMITING Patient reports: new complaints, movement normal, no loss of fluid, no vaginal bleeding, no contractions Objective - Vital Signs Vital Signs: Vital Signs - 12hr 01/24/18 01/24/18 01/24/18 20:11 20:13 23:00 Temperature 98.3 F 97.2 F L Pulse Rate 81 Respiratory 16 16 Rate Blood Pressure 130/81 Blood Pressure 130/81 [Right] O2 Sat by Pulse Oximetry 01/24/18 01/25/18 01/25/18 23:40 03:40 07:39 Temperature 98.4 F 98.8 F 96.4 F L Pulse Rate 74 88 76 Respiratory 16 16 20 Rate Blood Pressure 127/76 107/64 Blood Pressure 127/76 107/64 124/65 [Right] O2 Sat by Pulse 100 Oximetry 01/25/18 01/25/18 01/25/18 07:46 07:48 07:51 Temperature Pulse Rate 81 73 75 Respiratory Rate Blood Pressure 124/65 Blood Pressure [Right] O2 Sat by Pulse 100 100 Oximetry 01/25/18 01/25/18 07:56 08:01 Temperature Pulse Rate 88 82 Respiratory Rate Blood Pressure Blood Pressure [Right] O2 Sat by Pulse 100 100 Oximetry - Exam Breasts: normal Cardiovascular: Regular rate, Normal S1 Lungs: Clear to auscultation, Normal air movement Abdomen: Present: normal appearance, soft, normal bowel sounds. Absent: distention, tenderness, guarding Vulva: both: normal Uterus: Present: normal, firm FHR: category 1 - Labs Labs: Abnormal Labs 01/24/18 01/25/18 13:00 05:46 Hgb 9.1 L Hct 27.2 L Potassium 3.1 L Carbon Dioxide 21 L BUN 4 L Creatinine 0.4 L Laboratory Results - last 24 hr 01/24/18 01/24/18 01/24/18 13:00 13:00 13:00 Hgb Hct Sodium Potassium Chloride Carbon Dioxide Anion Gap BUN Creatinine Estimated GFR BUN/Creatinine Ratio Glucose Calcium Amylase 69 Lipase 16 TSH 0.945 Hepatitis A IgM Ab Non-reactive Hep Bs Antigen Non-reactive Hep B Core IgM Ab Non-reactive Hepatitis C Antibody Non-reactive 01/24/18 01/25/18 13:00 05:46 Hgb 9.1 L Hct 27.2 L Sodium 138 Potassium 3.1 L Chloride 99.5 Carbon Dioxide 21 L Anion Gap 21 BUN 4 L Creatinine 0.4 L Estimated GFR > 60 BUN/Creatinine Ratio 10 Glucose 71 Calcium 8.6 Amylase Lipase TSH Hepatitis A IgM Ab Hep Bs Antigen Hep B Core IgM Ab Hepatitis C Antibody
[2018-01-25] MEDS: ZOFRAN IV PRN ×2 (08:07→18:21)
[2018-01-25] MEDS: PRENATAL VITAMIN PO SCH (09:52)
[2018-01-25] MEDS ORDERED: PRENATAL VITAMIN PO SCH (10:00)
--- NOTE | 2018-01-25 10:13 | Gastroenterology Consultation ---
<KULDEEP PEREZ - Last Filed: 01/25/18 10:18> History of Present Illness - Reason for Consult Consult date: 01/25/18 abdominal pain and gallstones Requesting physician: WOOD VALENZUELA - History of Present Illness Patient is a 37 y/o female 28 weeks gestations with PMH of fibroids, morbid obesity, and hyperemesis gravidarum with prior pregnancies requiring prolonged hospital visits who was admitted from OB office due to N/V with inability to tolerate diet and recent wt loss. Patient is previously known to our service from consult 08/2017 for persistent N/V 2/2 hyperemesis gravidarum requiring discharged with zofran pump and po antiemetic. This morning patient was resting in bed w/o acute distress. She reports recurrent N/V with associated epigastric pain and occasional lower abd pain that began after being taken off of her zofran pump a few weeks ago. States her N/V is now improving with medications with no episodes this am. Symptoms exacerbated by PO intake. Denies fever, CP, SOB, dizziness, dysphagia, odynophagia, signs of bleeding, or LGI symptoms such as diarrhea or constipation. No hx of PUD or previous EGD. Past History Past Medical History: other ((fibroids, morbid obesity, h/o hyperemesis gravidarum with previous pregnancies)) Past Surgical History: Other ((D&C (2013), myomectomy (2008))) Social history: no significant social history Family history: cancer, diabetes, hypertension Medications and Allergies Allergies Allergy/AdvReac Type Severity Reaction Status Date / Time promethazine HCl Allergy Vomiting Verified 06/29/15 23:28 [From Phenergan] Home Medications Medication Instructions Recorded Confirmed Last Taken Type Ondansetron [Zofran Odt] 4 mg PO Q8HR PRN #12 tab.rapdis 08/14/17 01/24/18 Unknown Rx Ferrous Sulfate 325 mg PO BID #60 tablet. 01/24/18 Unknown Rx Ibuprofen [Motrin] 600 mg PO Q8H PRN #30 tablet 01/24/18 Unknown Rx oxyCODONE /ACETAMINOPHEN [Percocet 1 tab PO Q6HR PRN #30 tablet 01/24/18 Unknown Rx 5/325] Active Meds: Active Medications Acetaminophen (Tylenol) 650 mg PO Q4H PRN PRN Reason: Pain MILD(1-3)/Fever >100.5/PLASENCIA Bisacodyl (Dulcolax) 10 mg CO BID PRN PRN Reason: Constipation Lactated Ringer's (Lactated Ringers) 1,000 mls @ 125 mls/hr IV DIRECT KINGS Last Admin: 01/25/18 01:36 Dose: 125 mls/hr Metoclopramide HCl (Reglan) 10 mg IV Q6H [facility] Last Admin: 01/24/18 12:37 Dose: 10 mg Multivitamins/Iron/Calcium ( Vitamin) 1 each PO QDAY KINGS Last Admin: 01/25/18 09:52 Dose: Not Given Ondansetron HCl (Zofran) 4 mg IV Q8H PRN PRN Reason: Nausea And Vomiting Last Admin: 01/25/18 08:07 Dose: 4 mg Scopolamine (Transderm-Scop) 1 each TD ONCE NR Stop: 01/27/18 10:26 Last Admin: 01/24/18 11:40 Dose: 1 each Sodium Chloride (Sodium Chloride Flush Syringe 10 Ml) 10 ml IV PRN NR Stop: 01/25/18 18:59 Zolpidem Tartrate (Ambien) 10 mg PO QHS PRN PRN Reason: Insomnia Last Admin: 01/24/18 23:36 Dose: 10 mg Review of Systems - Review of Systems All systems: negative Gastrointestinal: abdominal pain, nausea, vomiting Exam - Constitutional Vital Signs: Temp Pulse Resp BP Pulse Ox 96.4 F L 69 20 124/65 98 01/25/18 07:39 01/25/18 09:16 01/25/18 07:39 01/25/18 07:48 01/25/18 09:16 General appearance: no acute distress, obese - EENT Eyes: PERRL, EOM intact ENT: hearing intact - Respiratory Respiratory: bilateral: CTA - Cardiovascular Rhythm: regular Heart Sounds: Present: S1 & S2 - Gastrointestinal General gastrointestinal: Present: soft, tender (slight generalized TTP), non- distended, normal bowel sounds, other (obese) - Neurologic Neurological: alert and oriented x3 - Psychiatric Psychiatric: intact judgment & insight, memory intact - Labs CBC & Chem 7: 01/25/18 05:46 01/24/18 13:00 Lab Results: Laboratory Results - last 24 hr 01/24/18 01/24/18 01/24/18 13:00 13:00 13:00 Hgb Hct Sodium Potassium Chloride Carbon Dioxide Anion Gap BUN Creatinine Estimated GFR BUN/Creatinine Ratio Glucose Calcium Amylase 69 Lipase 16 TSH 0.945 Hepatitis A IgM Ab Non-reactive Hep Bs Antigen Non-reactive Hep B Core IgM Ab Non-reactive Hepatitis C Antibody Non-reactive 01/24/18 01/25/18 13:00 05:46 Hgb 9.1 L Hct 27.2 L Sodium 138 Potassium 3.1 L Chloride 99.5 Carbon Dioxide 21 L Anion Gap 21 BUN 4 L Creatinine 0.4 L Estimated GFR > 60 BUN/Creatinine Ratio 10 Glucose 71 Calcium 8.6 Amylase Lipase TSH Hepatitis A IgM Ab Hep Bs Antigen Hep B Core IgM Ab Hepatitis C Antibody Assessment and Plan 1.N/V 2.abd pain -afebrile -lipase WNL -abd U/S showed minimal cholelithiasis but no evidence of obstruction or acute cholecystitis -etiology unclear- possibly due to hyperemesis gravidarum vs other (biliary process?) -clinically patient's N/V is now improving -no plans for EGD at this time -recommend patient have a HIDA scan if symptoms persist -CMP/CBC in am -start on pepcid -continue supportive care -electrolyte management per primary team -will follow <LENO SNIDER - Last Filed: 01/25/18 12:48> History of Present Illness - History of Present Illness The patient was seen and examined personally and care plan was discussed as outlined below. Leno Snider MD Medications and Allergies Active Meds: Active Medications Acetaminophen (Tylenol) 650 mg PO Q4H PRN PRN Reason: Pain MILD(1-3)/Fever >100.5/PLASENCIA Bisacodyl (Dulcolax) 10 mg CO BID PRN PRN Reason: Constipation Famotidine (Pepcid) 20 mg PO QDAY [facility] Lactated Ringer's (Lactated Ringers) 1,000 mls @ 125 mls/hr IV DIRECT [facility] Last Admin: 01/25/18 01:36 Dose: 125 mls/hr Metoclopramide HCl (Reglan) 10 mg IV Q6H [facility] Last Admin: 01/24/18 12:37 Dose: 10 mg Multivitamins/Iron/Calcium ( Vitamin) 1 each PO QDAY [facility] Last Admin: 01/25/18 09:52 Dose: Not Given Ondansetron HCl (Zofran) 4 mg IV Q8H PRN PRN Reason: Nausea And Vomiting Last Admin: 01/25/18 08:07 Dose: 4 mg Scopolamine (Transderm-Scop) 1 each TD ONCE NR Stop: 01/27/18 10:26 Last Admin: 01/24/18 11:40 Dose: 1 each Sodium Chloride (Sodium Chloride Flush Syringe 10 Ml) 10 ml IV PRN NR Stop: 01/25/18 18:59 Zolpidem Tartrate (Ambien) 10 mg PO QHS PRN PRN Reason: Insomnia Last Admin: 01/24/18 23:36 Dose: 10 mg Exam - Constitutional Vital Signs: Temp Pulse Resp BP Pulse Ox 96.4 F L 69 20 124/65 98 01/25/18 07:39 01/25/18 09:16 01/25/18 07:39 01/25/18 07:48 01/25/18 09:16 - Labs CBC & Chem 7: 01/25/18 05:46 01/24/18 13:00 Lab Results: Laboratory Results - last 24 hr 01/24/18 01/24/18 01/24/18 13:00 13:00 13:00 Hgb Hct Sodium Potassium Chloride Carbon Dioxide Anion Gap BUN Creatinine Estimated GFR BUN/Creatinine Ratio Glucose Calcium Amylase 69 Lipase 16 TSH 0.945 Hepatitis A IgM Ab Non-reactive Hep Bs Antigen Non-reactive Hep B Core IgM Ab Non-reactive Hepatitis C Antibody Non-reactive 01/24/18 01/25/18 13:00 05:46 Hgb 9.1 L Hct 27.2 L Sodium 138 Potassium 3.1 L Chloride 99.5 Carbon Dioxide 21 L Anion Gap 21 BUN 4 L Creatinine 0.4 L Estimated GFR > 60 BUN/Creatinine Ratio 10 Glucose 71 Calcium 8.6 Amylase Lipase TSH Hepatitis A IgM Ab Hep Bs Antigen Hep B Core IgM Ab Hepatitis C Antibody
[2018-01-25] MEDS: REGLAN IV SCH (13:00)
[2018-01-25] MEDS: PEPCID PO SCH (13:07)
[2018-01-25] MEDS: AMBIEN PO PRN (23:29)
[2018-01-26] MEDS: LACTATED RINGERS 1,000 ML IV SCH ×3 (01:33→17:11)
[2018-01-26 06:48] LABS: Basophils % (Auto) 0.3 % (0.0-1.8); Eosinophils # (Auto) 0.2 K/mm3 (0.0-0.4); Eosinophils % (Auto) 3.5 % (0.0-4.3); Hematocrit 26.1 % (30.3-42.9); Hemoglobin 8.8 gm/dl (10.1-14.3); Lymphocytes # (Auto) 1.2 K/mm3 (1.2-5.4); Lymphocytes % (Auto) 20.2 % (13.4-35.0); Mean Corpuscular HGB Conc 34 % (30-34); Mean Corpuscular Hemoglobin 29 pg (28-32); Mean Corpuscular Volume 85 fl (79-97); Monocytes # (Auto) 0.5 K/mm3 (0.0-0.8); Monocytes % (Auto) 8.6 % (0.0-7.3); Platelet Count 205 K/mm3 (140-440); Red Blood Count 3.09 M/mm3 (3.65-5.03); Red Cell Distribution Width 16.7 % (13.2-15.2)
[2018-01-26 07:04] LABS: Alanine Aminotransferase 6 units/L (7-56); Albumin 2.7 g/dL (3.9-5); BUN/Creatinine Ratio 5; Blood Urea Nitrogen 2 mg/dL (7-17); Calcium 8.1 mg/dL (8.4-10.2); Hemolysis Index 1
[2018-01-26] MEDS: REGLAN IV SCH ×4 (07:37→23:00)
[2018-01-26] MEDS: ZOFRAN IV PRN ×2 (08:42→18:16)
[2018-01-26] MEDS: PEPCID PO SCH (09:48)
[2018-01-26] MEDS: KCL 10MEQ/100ML 10 MEQ/100 ML BAG IV SCH ×4 (10:48→17:10)
[2018-01-26] MEDS: PRENATAL VITAMIN PO SCH (10:48)
--- NOTE | 2018-01-26 12:28 | Gastroenterology Progress Note ---
Assessment and Plan 1.N/V 2.abd pain -afebrile -lipase WNL -LFTs WNL -abd U/S showed minimal cholelithiasis but no evidence of obstruction or acute cholecystitis -etiology unclear- possibly due to hyperemesis gravidarum vs other (biliary process?) -no plans for EGD at this time -recommend patient have a HIDA scan if symptoms persist -d/c pepcid and start on PPI -continue supportive care -electrolyte management per primary team -will follow Subjective Date of service: 01/26/18 Principal diagnosis: ABDOMINAL PAIN AND NAUSEA AND VOMITING Interval history: Patient w/o acute distress. Reports continued N/V and mild epigastric discomfort. Objective - Constitutional Vitals: Temp Pulse Resp BP Pulse Ox 96.9 F L 91 H 20 122/73 98 01/26/18 08:27 01/26/18 10:06 01/26/18 08:27 01/26/18 08:31 01/26/18 10:06 General appearance: no acute distress - Respiratory Respiratory: bilateral: CTA - Cardiovascular Rhythm: regular Heart Sounds: Present: S1 & S2 - Gastrointestinal General gastrointestinal: Present: soft, tender (slight), non-distended, normal bowel sounds - Neurologic Neurological: alert and oriented x3 - Labs CBC & Chem 7: 01/26/18 05:52 01/26/18 05:52 Labs: Laboratory Results - last 24 hr 01/26/18 01/26/18 05:52 05:52 WBC 6.1 RBC 3.09 L Hgb 8.8 L Hct 26.1 L MCV 85 MCH 29 MCHC 34 RDW 16.7 H Plt Count 205 Lymph % (Auto) 20.2 [place] % (Auto) 8.6 H Eos % (Auto) 3.5 Baso % (Auto) 0.3 Lymph # 1.2 [place] # 0.5 Eos # 0.2 Baso # 0.0 Seg Neutrophils % 67.4 Seg Neutrophils # 4.1 Sodium 138 Potassium 2.7 L* Chloride 101.3 Carbon Dioxide 22 Anion Gap 17 BUN 2 L Creatinine 0.4 L Estimated GFR > 60 BUN/Creatinine Ratio 5 Glucose 70 Calcium 8.1 L Total Bilirubin 0.40 AST 12 ALT 6 L Alkaline Phosphatase 68 Total Protein 5.5 L Albumin 2.7 L Albumin/Globulin Ratio 1.0
--- NOTE | 2018-01-26 12:58 | Progress Note ---
Assessment and Plan A: IUP at 29w1d Nausea, vomiting. epigastric pain- some improvement Cholelithiasis Morbid Obesity Electrolyte abnormalities P: Continue electrolyte repletion Miracle Mixture for symptomatic relief of "burning" with eating PPI per GI recommendations Continue to monitor clinical status Subjective - Subjective Date of service: 01/26/18 Principal diagnosis: ABDOMINAL PAIN AND NAUSEA AND VOMITING Interval history: Pt reports improved vomiting, but reports "constant burning pain" every time that she eats. She denies any obstetric complaints. Patient reports: new complaints, movement normal, no loss of fluid, no vaginal bleeding, no contractions Objective - Vital Signs Vital Signs: Vital Signs - 12hr 01/26/18 01/26/18 01/26/18 08:27 08:30 08:31 Temperature 96.9 F L Pulse Rate 79 75 71 Respiratory 20 Rate Blood Pressure 122/73 Blood Pressure 122/73 [Right] O2 Sat by Pulse 98 93 99 Oximetry 01/26/18 01/26/18 01/26/18 08:35 08:41 08:46 Temperature Pulse Rate 94 H 72 78 Respiratory Rate Blood Pressure Blood Pressure [Right] O2 Sat by Pulse 95 97 99 Oximetry 01/26/18 01/26/18 01/26/18 08:50 08:55 09:01 Temperature Pulse Rate 87 80 76 Respiratory Rate Blood Pressure Blood Pressure [Right] O2 Sat by Pulse 97 98 98 Oximetry 01/26/18 01/26/18 01/26/18 09:05 09:11 09:16 Temperature Pulse Rate 76 85 75 Respiratory Rate Blood Pressure Blood Pressure [Right] O2 Sat by Pulse 96 97 96 Oximetry 01/26/18 01/26/18 01/26/18 09:21 09:26 09:30 Temperature Pulse Rate 81 86 78 Respiratory Rate Blood Pressure Blood Pressure [Right] O2 Sat by Pulse 96 96 97 Oximetry 01/26/18 01/26/18 01/26/18 09:33 09:35 09:41 Temperature Pulse Rate 83 84 83 Respiratory Rate Blood Pressure Blood Pressure [Right] O2 Sat by Pulse 94 98 97 Oximetry 01/26/18 01/26/18 01/26/18 09:45 09:46 09:51 Temperature Pulse Rate 105 H 94 H 94 H Respiratory Rate Blood Pressure Blood Pressure [Right] O2 Sat by Pulse 94 97 98 Oximetry 01/26/18 01/26/18 01/26/18 09:56 10:01 10:06 Temperature Pulse Rate 94 H 83 91 H Respiratory Rate Blood Pressure Blood Pressure [Right] O2 Sat by Pulse 97 98 98 Oximetry - Exam Breasts: deferred Cardiovascular: Regular rate Lungs: Clear to auscultation Abdomen: Present: soft (obese, gravid ) Uterus: Present: normal (gravid ) FHR: auscultation normal Uterine Contraction Monitor Mode: External Uterine Tone Measurement Phase: Resting Extremities: normal - Labs Labs: Abnormal Labs 01/24/18 01/25/18 01/26/18 13:00 05:46 05:52 RBC 3.09 L Hgb 9.1 L 8.8 L Hct 27.2 L 26.1 L RDW 16.7 H [place] % (Auto) 8.6 H Potassium 3.1 L Carbon Dioxide 21 L BUN 4 L Creatinine 0.4 L Calcium ALT Total Protein Albumin 01/26/18 05:52 RBC Hgb Hct RDW [place] % (Auto) Potassium 2.7 L* Carbon Dioxide BUN 2 L Creatinine 0.4 L Calcium 8.1 L ALT 6 L Total Protein 5.5 L Albumin 2.7 L Laboratory Results - last 24 hr 01/26/18 01/26/18 05:52 05:52 WBC 6.1 RBC 3.09 L Hgb 8.8 L Hct 26.1 L MCV 85 MCH 29 MCHC 34 RDW 16.7 H Plt Count 205 Lymph % (Auto) 20.2 [place] % (Auto) 8.6 H Eos % (Auto) 3.5 Baso % (Auto) 0.3 Lymph # 1.2 [place] # 0.5 Eos # 0.2 Baso # 0.0 Seg Neutrophils % 67.4 Seg Neutrophils # 4.1 Sodium 138 Potassium 2.7 L* Chloride 101.3 Carbon Dioxide 22 Anion Gap 17 BUN 2 L Creatinine 0.4 L Estimated GFR > 60 BUN/Creatinine Ratio 5 Glucose 70 Calcium 8.1 L Total Bilirubin 0.40 AST 12 ALT 6 L Alkaline Phosphatase 68 Total Protein 5.5 L Albumin 2.7 L Albumin/Globulin Ratio 1.0
[2018-01-26] MEDS ORDERED: MIRACLE MIXTURE PO ONE (13:09)
[2018-01-26] MEDS: PROTONIX PO SCH (14:39)
[2018-01-26] MEDS: AMBIEN PO PRN (21:31)
[2018-01-27] MEDS: D5LR IV SCH ×2 (01:29→19:32)
[2018-01-27] MEDS: KCL IV SCH ×2 (01:29→19:32)
[2018-01-27] MEDS: ZOFRAN IV PRN (02:19)
[2018-01-27] MEDS: REGLAN IV SCH (07:14)
[2018-01-27] MEDS: PROTONIX PO SCH (10:24)
[2018-01-27] MEDS: PRENATAL VITAMIN PO SCH (10:24)
--- NOTE | 2018-01-27 11:04 | Gastroenterology Progress Note ---
<KULDEEP PEREZ - Last Filed: 01/27/18 11:04> Assessment and Plan 1.N/V 2.abd pain -afebrile -lipase WNL -LFTs WNL -abd U/S showed minimal cholelithiasis but no evidence of obstruction or acute cholecystitis -etiology unclear- possibly due to hyperemesis gravidarum vs other (biliary process?) -clinically, patient's N/V is improving but still reports some mild postprandial epigastric pain -no plans for EGD at this time -recommend further evaluation if symptoms persist with HIDA scan -continue PPI and supportive care -electrolyte management per primary team -no further GI recommendations at this time -will sign off, please call if needed Subjective Date of service: 01/27/18 Principal diagnosis: ABDOMINAL PAIN AND NAUSEA AND VOMITING Interval history: Patient w/o acute distress. Reports feeling better today with N/V improved. Was able to tolerate eating breakfast this am but had some postprandial epigastic pain. Objective - Constitutional Vitals: Temp Pulse Resp BP Pulse Ox 97.9 F 82 18 135/73 98 01/27/18 08:06 01/27/18 08:13 01/27/18 08:06 01/27/18 08:13 01/26/18 10:06 General appearance: no acute distress - Respiratory Respiratory: bilateral: CTA - Cardiovascular Rhythm: regular Heart Sounds: Present: S1 & S2 - Gastrointestinal General gastrointestinal: Present: soft, tender (slight TTP ), non-distended, normal bowel sounds - Neurologic Neurological: alert and oriented x3 - Labs CBC & Chem 7: 01/26/18 05:52 01/26/18 20:15 Labs: Laboratory Results - last 24 hr 01/26/18 20:15 Potassium 3.3 L D <LENO SNIDER - Last Filed: 01/27/18 12:18> Objective - Constitutional Vitals: Temp Pulse Resp BP Pulse Ox 97.9 F 82 18 135/73 98 01/27/18 08:06 01/27/18 08:13 01/27/18 08:06 01/27/18 08:13 01/26/18 10:06 - Labs CBC & Chem 7: 01/26/18 05:52 01/26/18 20:15 Labs: Laboratory Results - last 24 hr 01/26/18 20:15 Potassium 3.3 L D Impression/Plan - Impression Impression: The patient was seen and evaluated. I agree with above assessment and plan by our DIN[employer] MECHANIC. Will sign off at this point. Supportive care is planned. Office f/u post for HIDA scan. Thank you for asking us to see her in consultation. Leno Snider MD
[2018-01-27 12:35] LABS: Bacteria,Urine 1+ /HPF (Negative); Bilirubin,Urine NEG (Negative); Blood,Urine NEG (Negative); Color,Urine Yellow (Yellow); Mucus,Urine FEW /HPF; Protein,Urine <15 mg/dL mg/dL (Negative); Urobilinogen,Urine < 2.0 mg/dL (<2.0)
--- NOTE | 2018-01-27 12:57 | Progress Note ---
Assessment and Plan A: IUP at 29w2d Nausea, vomiting. epigastric pain- improving but still present Cholelithiasis Morbid Obesity Electrolyte abnormalities P: Continue PPI Begin PO Zofran Urine ketones Pt desires to go home if "there is nothing that can be done." Subjective - Subjective Date of service: 01/27/18 Principal diagnosis: ABDOMINAL PAIN AND NAUSEA AND VOMITING Interval history: Pt continues to report a burning sensation every time she eat despite her current medication regimen. No obstetric complaints. Patient reports: new complaints, movement normal, no loss of fluid, no vaginal bleeding, no contractions Objective - Vital Signs Vital Signs: Vital Signs - 12hr 01/27/18 01/27/18 01/27/18 04:21 08:06 08:13 Temperature 97.5 F L 97.9 F Pulse Rate 81 82 82 Respiratory 18 Rate Blood Pressure 116/59 135/73 Blood Pressure 135/73 [Right] 01/27/18 12:37 Temperature Pulse Rate 82 Respiratory Rate Blood Pressure 118/67 Blood Pressure [Right] - Exam Breasts: deferred Cardiovascular: Regular rate Lungs: Clear to auscultation Abdomen: Present: soft (obese ) Uterus: Present: normal (gravid ) FHR: auscultation normal Uterine Contraction Monitor Mode: External Extremities: normal - Labs Labs: Abnormal Labs 01/24/18 01/25/18 01/26/18 13:00 05:46 05:52 RBC 3.09 L Hgb 9.1 L 8.8 L Hct 27.2 L 26.1 L RDW 16.7 H [place] % (Auto) 8.6 H Potassium 3.1 L Carbon Dioxide 21 L BUN 4 L Creatinine 0.4 L Calcium ALT Total Protein Albumin 01/26/18 01/26/18 05:52 20:15 RBC Hgb Hct RDW [place] % (Auto) Potassium 2.7 L* 3.3 L D Carbon Dioxide BUN 2 L Creatinine 0.4 L Calcium 8.1 L ALT 6 L Total Protein 5.5 L Albumin 2.7 L Laboratory Results - last 24 hr 01/26/18 01/27/18 20:15 10:28 Potassium 3.3 L D Urine Color Yellow Urine Turbidity Clear Urine pH 7.0 Ur Specific [place] 1.015 Urine Protein <15 mg/dl Urine Glucose (UA) Neg Urine Ketones 20 Urine Blood Neg Urine Nitrite Neg Urine Bilirubin Neg Urine Urobilinogen < 2.0 Ur Leukocyte Esterase Sm Urine WBC (Auto) 3.0 Urine RBC (Auto) 4.0 U Epithel Cells (Auto) 9.0 Urine Bacteria (Auto) 1+ Urine Mucus Few
[2018-01-27] MEDS: ZOFRAN ODT PO PRN ×2 (14:34→22:33)
[2018-01-28] MEDS ORDERED: SUBLIMAZE IV ONE (00:06)
[2018-01-28] MEDS: D5LR IV SCH (04:58)
[2018-01-28] MEDS: KCL IV SCH (04:58)
[2018-01-28] MEDS: PRENATAL VITAMIN PO SCH (10:09)
[2018-01-28] MEDS: PROTONIX PO SCH (10:09)
[2018-01-28 12:14] VITALS: BP 122/75
--- NOTE | 2018-01-28 13:39 | Progress Note ---
Assessment and Plan A: IUP at 29w3d Nausea, vomiting. epigastric pain- improving but still present Cholelithiasis Morbid Obesity Electrolyte abnormalities P: Patient reports much better zofran implemented PPI as recommneded from GI will f/u GI after delivery d/c home with f/u next week Subjective - Subjective Date of service: 01/28/18 Principal diagnosis: ABDOMINAL PAIN AND NAUSEA AND VOMITING Patient reports: new complaints, movement normal, no loss of fluid, no vaginal bleeding, no contractions Objective - Vital Signs Vital Signs: Vital Signs - 12hr 01/28/18 01/28/18 01/28/18 02:17 02:20 04:35 Temperature 98.7 F Pulse Rate 73 73 77 Respiratory 20 Rate Blood Pressure 126/81 Blood Pressure 126/81 113/57 [Left] 01/28/18 01/28/18 01/28/18 04:37 04:39 07:47 Temperature 97.9 F 97.7 F Pulse Rate 77 86 Respiratory 16 18 Rate Blood Pressure 113/57 Blood Pressure 91/42 [Left] 01/28/18 01/28/18 01/28/18 07:52 12:13 12:17 Temperature 98.1 F Pulse Rate 86 85 85 Respiratory 18 Rate Blood Pressure 91/42 122/75 Blood Pressure 122/75 [Left] - Exam Breasts: normal Cardiovascular: Regular rate, Normal S1 Lungs: Clear to auscultation Abdomen: Present: normal appearance, soft, normal bowel sounds. Absent: distention, tenderness, guarding Vulva: both: normal Uterus: Present: normal, firm, fundal height above umbilicus FHR: category 1 Uterine Contraction Pattern: Absent Uterine Tone Measurement Phase: Resting Extremities: normal Deep Tendon Reflex Grade: Normal +2 - Labs Labs: Abnormal Labs 01/24/18 01/25/18 01/26/18 13:00 05:46 05:52 RBC 3.09 L Hgb 9.1 L 8.8 L Hct 27.2 L 26.1 L RDW 16.7 H [place] % (Auto) 8.6 H Potassium 3.1 L Carbon Dioxide 21 L BUN 4 L Creatinine 0.4 L Calcium ALT Total Protein Albumin 01/26/18 01/26/18 01/27/18 05:52 20:15 14:38 RBC Hgb Hct RDW [place] % (Auto) Potassium 2.7 L* 3.3 L D 3.1 L Carbon Dioxide BUN 2 L Creatinine 0.4 L Calcium 8.1 L ALT 6 L Total Protein 5.5 L Albumin 2.7 L 01/28/18 10:34 RBC Hgb Hct RDW [place] % (Auto) Potassium 3.4 L Carbon Dioxide BUN Creatinine Calcium ALT Total Protein Albumin Laboratory Results - last 24 hr 01/27/18 01/28/18 14:38 10:34 Potassium 3.1 L 3.4 L
--- NOTE | 2018-01-28 13:44 | Discharge Summary ---
Providers - Providers Date of Admission: 01/24/18 10:47 Date of discharge: 01/28/18 Attending physician: WOOD VALENZUELA MD 01/24/18 10:28 Consult to Dietitian/Nutrition [CONS] Routine Physician Instructions: Reason For Exam: Reason for Consult: hyper grav Reason for Consult: Diet education 01/24/18 19:26 Consult to Physician [CONS] Urgent Comment: Consulting Provider: ALANNA BLANTON Physician Instructions: Reason For Exam: abdominal pain and gall stones Primary care physician: WOOD VALENZUELA MD Hospitalization Reason for admission: other (nausea vomiting abdominal pain) Discharge diagnosis: other (cholethisis, , abdominal pain) Condition at discharge: Good Disposition: DC-01 TO HOME OR SELFCARE Plan - Discharge Medications Prescriptions: Ferrous Sulfate 325 mg PO BID #60 tablet.dr Fluconazole [Diflucan] 150 mg PO DAILY #2 tablet Ibuprofen [Motrin] 600 mg PO Q8H PRN #30 tablet PRN Reason: Pain Ondansetron [Zofran ODT TAB] 8 mg PO Q8HR #30 tab.rapdis oxyCODONE /ACETAMINOPHEN [Percocet 5/325] 1 tab PO Q6HR PRN #30 tablet PRN Reason: Pain Pantoprazole [Protonix] 40 mg PO QDAY #30 tablet - Provider Discharge Summary Additional instructions: [] Smoking cessation referral if applicable(refer to patient education folder for contact #) [] Refer to [facility]'s [facility] Booklet Call your doctor immediately for: * Fever > 100.5 * Heavy vaginal bleeding ( >1 pad per hour) * Severe persistent headache * Shortness of breath * Reddened, hot, painful area to leg or breast * Drainage or odor from incision. * Keep incision clean and dry at all times and follow doctor's instructions regarding bathing/showering - Follow up plan Follow up: WOOD VALENZUELA MD [Primary Care Provider] - 7 Days
[2018-01-28] MEDS: ZOFRAN ODT PO PRN (14:25)
== END 2018-01-28 14:42 | disposition home or self-care (01) | DRG 781 ==
LOC: UNDOADMIN 09:54 → 3A 09:54 → LD 10:47
PROVIDERS: ADMIT Obstetrics & Gynecology; ATTEND Obstetrics & Gynecology
PROC: 3E0234Z Introduction of Serum, Toxoid and Vaccine into Muscle, Percutaneous Approach (ICD-10-PCS; principal; 2018-01-25)
DX: O21.1 Hyperemesis gravidarum with metabolic disturbance (principal); O99.613 Diseases of the digestive system complicating pregnancy, third trimester; Z68.41 Body mass index [BMI] 40.0-44.9, adult; E66.01 Morbid (severe) obesity due to excess calories; K80.20 Calculus of gallbladder without cholecystitis without obstruction; O99.213 Obesity complicating pregnancy, third trimester; Z23 Encounter for immunization; Z3A.28 28 weeks gestation of pregnancy; Z80.9 Family history of malignant neoplasm, unspecified; Z80.49 Family history of malignant neoplasm of other genital organs; Z82.49 Family history of ischemic heart disease and other diseases of the circulatory system; Z83.3 Family history of diabetes mellitus; Z88.8 Allergy status to other drugs, medicaments and biological substances; O98.813 Other maternal infectious and parasitic diseases complicating pregnancy, third trimester
CPT/HCPCS: 36415; 59025; 76705; 80048; 80053; 80074; 81001; 82150; 83690; 84132; 84443; 85014; 85018; 85025; 96360; J2405; J2765; J3010; J3410; J3480; J7120; J7121; Q0162

== ENCOUNTER 2018-03-21 10:44 | Outpatient (CLI) | payer MEDICAID, OTHER ==
[2018-03-21 11:50] LABS: Bilirubin,Urine NEG (Negative); Blood,Urine NEG (Negative); Color,Urine Yellow (Yellow); Mucus,Urine FEW /HPF; Urobilinogen,Urine < 2.0 mg/dL (<2.0)
[2018-03-21] MEDS ORDERED: LACTATED RINGERS 1,000 ML IV ONE (12:16)
[2018-03-21] MEDS ORDERED: ZOFRAN IV PRN (12:16)
[2018-03-21] MEDS ORDERED: LACTATED RINGERS 1,000 ML ONE (12:21)
[2018-03-21 15:30] LABS: Hematocrit 26.5 % (30.3-42.9); Hemoglobin 8.4 gm/dl (10.1-14.3); Mean Corpuscular HGB Conc 32 % (30-34); Mean Corpuscular Hemoglobin 26 pg (28-32); Mean Corpuscular Volume 82 fl (79-97); Platelet Count 199 K/mm3 (140-440); Red Blood Count 3.25 M/mm3 (3.65-5.03); Red Cell Distribution Width 18.2 % (13.2-15.2)
[2018-03-21 15:43] LABS: Uric Acid 4.4 mg/dL (3.5-7.6)
[2018-03-21 16:00] LABS: Alanine Aminotransferase < 5 units/L (7-56)
[2018-03-21] MEDS ORDERED: TYLENOL PO ONE (16:20)
[2018-03-21] MEDS ORDERED: ZOFRAN IV ONE (16:20)
[2018-03-25 00:46] VITALS: BP 138/70
== END 2018-03-21 19:00 | disposition home or self-care (01) ==
LOC: TRG 10:44
PROVIDERS: ATTEND Obstetrics & Gynecology
DX: O47.03 False labor before 37 completed weeks of gestation, third trimester (principal); Z3A.36 36 weeks gestation of pregnancy; Z88.1 Allergy status to other antibiotic agents
CPT/HCPCS: 36415; 59025; 81001; 82565; 83615; 84450; 84460; 84550; 85027; 96360; 96374; 96376; J2405; J7120

== ENCOUNTER 2018-12-13 19:58 | Emergency (ER) | payer MEDICAID, OTHER ==
[2018-12-13] MEDS ORDERED: ASPIRIN PO ONE (20:37)
--- NOTE | 2018-12-13 20:38 | Emergency Department Report ---
Chief Complaint: Chest Pain Stated Complaint: CHEST PAIN/SOB Time Seen by Provider: 12/13/18 20:34 - HPI History of Present Illness: This is a 38 y.o. F. that presents to the ER with chest pain and cough for 1 week. No PMH LMP 11/16/2018 A2 CC: N/V/D, SOB, and dizziness Denies radiating pain, palpitations No medication - Exam Vital Signs: Vital Signs 12/13/18 20:02 Temperature 97.9 F Pulse Rate 89 Respiratory 18 Rate Blood Pressure 175/115 O2 Sat by Pulse 100 Oximetry MSE screening note: Focused history and physical exam performed. Due to findings the following was ordered: This initial assessment/diagnostic orders/clinical plan/treatment(s) is/are subject to change based on patient's health status, clinical progression and re- assessment by fellow clinical providers in the ED. Further treatment and workup at subsequent clinical providers discretion. Patient/guardians urged not to elope from the ED as their condition may be serious if not clinically assessed and managed. Initial orders include: 1- Patient sent to [facility] for further evaluation and treatment 2- Labs and CXR ED Disposition for MSE Condition: Stable
[2018-12-13 21:20] LABS: Basophils % (Auto) 0.7 % (0.0-1.8); Eosinophils # (Auto) 0.5 K/mm3 (0.0-0.4); Eosinophils % (Auto) 8.5 % (0.0-4.3); Hematocrit 35.6 % (30.3-42.9); Hemoglobin 11.6 gm/dl (10.1-14.3); Lymphocytes # (Auto) 2.1 K/mm3 (1.2-5.4); Lymphocytes % (Auto) 35.8 % (13.4-35.0); Mean Corpuscular HGB Conc 33 % (30-34); Mean Corpuscular Volume 79 fl (79-97); Monocytes # (Auto) 0.3 K/mm3 (0.0-0.8); Monocytes % (Auto) 5.8 % (0.0-7.3); Platelet Count 315 K/mm3 (140-440)
[2018-12-13 21:22] LABS: Red Cell Distribution Width 20.4 % (13.2-15.2)
[2018-12-13 21:34] LABS: BUN/Creatinine Ratio 17; Blood Urea Nitrogen 10 mg/dL (7-17); Calcium 9.1 mg/dL (8.4-10.2); Hemolysis Index 3
--- NOTE | 2018-12-13 22:11 | XRay Report ---
PROCEDURE: XR CHEST 1V AP TECHNIQUE: Chest radiograph single view. HISTORY: Chest Pain COMPARISONS: None . FINDINGS: Heart: Normal. Mediastinum/Vessels: Normal. Lungs/Pleural space: Normal. Bony thorax: No acute osseous abnormality. Life support devices: None. IMPRESSION: No acute cardiopulmonary abnormality. This document is electronically signed by Roberto Robin MD., Dec 13 2018 10:09:10 PM ET
[2018-12-14] MEDS ORDERED: IBUPROFEN PO ONE (00:41)
[2018-12-14] MEDS ORDERED: DECADRON IM ONE (00:41)
[2018-12-14] MEDS ORDERED: PROVENTIL IH ONE (00:41)
--- NOTE | 2018-12-14 01:44 | Emergency Department Report ---
<DORA JACKSON - Last Filed: 12/14/18 01:40> ED Chest Pain HPI - General Chief Complaint: Chest Pain Stated Complaint: CHEST PAIN/SOB Time Seen by Provider: 12/13/18 20:34 Source: patient Mode of arrival: Ambulatory Limitations: No Limitations - History of Present Illness Initial Comments: This is a 38 y.o. F. that presents to the ER with chest pain and cough for 1 week. cough is productive with green sputum there is noc fever and wheezing, there is associated intermittent sob, and dizziness pt denies n/v, no diaphor esis, no CP, at this time , LMP 11/16/2018 A2 MD Complaint: chest pain (chest wall pain with cough ) Onset/Timin -: Gradual, days(s) Onset: during exertion Pain Location: left chest Pain Radiation: LUE Severity: moderate Severity scale (0 -10): 8 Quality: sharp Consistency: constant Improves With: nothing Worsens With: other (environmental exposure ) re: nausea, vomting Other Symptoms: cough Treatments Prior to Arrival: none Aspirin use within the Past 7 Days: (0) No - Related Data On Oral Contraceptives: No Previous Rx's Medication Instructions Recorded Last Taken Type Ondansetron [Zofran Odt] 4 mg PO Q8HR PRN #12 tab.rapdis 08/14/17 3 Days Ago Rx ~03/22/18 Ferrous Sulfate 325 mg PO BID #60 tablet. 01/24/18 Unknown Rx Ibuprofen [Motrin] 600 mg PO Q8H PRN #30 tablet 01/24/18 Unknown Rx oxyCODONE /ACETAMINOPHEN [Percocet 1 tab PO Q6HR PRN #30 tablet 01/24/18 Unknown Rx 5/325] Fluconazole [Diflucan] 150 mg PO DAILY #2 tablet 01/28/18 Unknown Rx Ondansetron [Zofran ODT TAB] 8 mg PO Q8HR #30 tab.rapdis 01/28/18 Unknown Rx Pantoprazole [Protonix] 40 mg PO QDAY #30 tablet 01/28/18 Unknown Rx Docusate Sodium [Colace] 100 mg PO BID PRN #60 capsule 03/27/18 Unknown Rx Ferrous Sulfate [Feosol 325 MG tab] 325 mg PO TID #90 tablet 03/27/18 Unknown Rx Ibuprofen [Motrin] 800 mg PO Q8HR PRN #30 tablet 03/27/18 Unknown Rx oxyCODONE /ACETAMINOPHEN [Percocet 1 tab PO Q6HR PRN #40 tablet 03/27/18 Unknown Rx 5/325] ALBUTEROL Inhaler (OR & NICU) 2 puff IH QID PRN #1 inhalation 12/14/18 Unknown Rx [ProAir HFA Inhaler] Azithromycin [Zithromax Z-KIMBERLY] 250 mg PO DAILY 5 Days #6 tab 12/14/18 Unknown Rx Benzonatate [Tessalon Perles] 100 mg PO Q8HR PRN #30 capsule 12/14/18 Unknown Rx Dexamethasone [Decadron] 4 mg PO BID 2 Days #4 tablet 12/14/18 Unknown Rx Ibuprofen [Motrin 800 MG tab] 800 mg PO Q8HR PRN #30 tablet 12/14/18 Unknown Rx Potassium Chloride 40 meq PO DAILY #45 12/14/18 Unknown Rx Allergies Allergy/AdvReac Type Severity Reaction Status Date / Time promethazine HCl Allergy Vomiting Verified 06/29/15 23:28 [From Phenergan] metoclopramide [From Reglan] AdvReac Unknown Verified 03/25/18 14:14 Heart Score - HEART Score History: Slightly suspicious EKG: Normal Age: < 45 Risk factors: No known risk factors Troponin: < normal limit HEART Score: 0 ED Review of Systems Constitutional: denies: chills, fever Eyes: denies: eye pain, eye discharge, vision change ENT: denies: ear pain, throat pain Respiratory: cough, orthopnea, SOB with exertion, wheezing Cardiovascular: denies: chest pain, palpitations, edema, syncope, paroxysmal nocturnal dyspnea Endocrine: no symptoms reported Gastrointestinal: denies: abdominal pain, nausea, vomiting, diarrhea, constipation, hematemesis, hematochezia Genitourinary: frequency, dyspareunia. denies: urgency, dysuria, hematuria, discharge Musculoskeletal: myalgia. denies: back pain, joint swelling, arthralgia Skin: denies: rash, lesions Neurological: denies: headache, weakness, paresthesias Psychiatric: denies: anxiety, depression Hematological/Lymphatic: denies: easy bleeding, easy bruising ED Past Medical Hx - Past Medical History Hx Hypertension: No Hx Congestive Heart Failure: No Hx Diabetes: No Hx Deep Vein Thrombosis: No Hx Renal Disease: No Hx Sickle Cell Disease: No Hx Seizures: No Hx Asthma: No Hx COPD: No Hx HIV: No - Surgical History Additional Surgical History: d+c. Fibroid tumor removed. x1 - Social History Smoking Status: Never Smoker Substance Use Type: None - Medications Home Medications: Home Medications Medication Instructions Recorded Confirmed Last Taken Type Ondansetron [Zofran Odt] 4 mg PO Q8HR PRN #12 tab.rapdis 08/14/17 03/25/18 3 Days Ago Rx ~03/22/18 Ferrous Sulfate 325 mg PO BID #60 tablet. 01/24/18 03/25/18 Unknown Rx Ibuprofen [Motrin] 600 mg PO Q8H PRN #30 tablet 01/24/18 03/25/18 Unknown Rx oxyCODONE /ACETAMINOPHEN [Percocet 1 tab PO Q6HR PRN #30 tablet 01/24/18 03/25/18 Unknown Rx 5/325] Fluconazole [Diflucan] 150 mg PO DAILY #2 tablet 01/28/18 03/25/18 Unknown Rx Ondansetron [Zofran ODT TAB] 8 mg PO Q8HR #30 tab.rapdis 01/28/18 03/25/18 Unknown Rx Pantoprazole [Protonix] 40 mg PO QDAY #30 tablet 01/28/18 03/25/18 Unknown Rx Docusate Sodium [Colace] 100 mg PO BID PRN #60 capsule 03/27/18 Unknown Rx Ferrous Sulfate [Feosol 325 MG tab] 325 mg PO TID #90 tablet 03/27/18 Unknown Rx Ibuprofen [Motrin] 800 mg PO Q8HR PRN #30 tablet 03/27/18 Unknown Rx oxyCODONE /ACETAMINOPHEN [Percocet 1 tab PO Q6HR PRN #40 tablet 03/27/18 Unknown Rx 5/325] ALBUTEROL Inhaler (OR & NICU) 2 puff IH QID PRN #1 inhalation 12/14/18 Unknown Rx [ProAir HFA Inhaler] Azithromycin [Zithromax Z-KIMBERLY] 250 mg PO DAILY 5 Days #6 tab 12/14/18 Unknown Rx Benzonatate [Tessalon Perles] 100 mg PO Q8HR PRN #30 capsule 12/14/18 Unknown Rx Dexamethasone [Decadron] 4 mg PO BID 2 Days #4 tablet 12/14/18 Unknown Rx Ibuprofen [Motrin 800 MG tab] 800 mg PO Q8HR PRN #30 tablet 12/14/18 Unknown Rx Potassium Chloride 40 meq PO DAILY #45 12/14/18 Unknown Rx ED Physical Exam - General Limitations: No Limitations General appearance: alert, in no apparent distress - Head Head exam: Present: atraumatic, normocephalic - Eye Eye exam: Present: normal appearance, PERRL, EOMI - ENT ENT exam: Present: normal orophraynx, mucous membranes moist, TM's normal bilaterally, normal external ear exam - Neck Neck exam: Present: normal inspection, tenderness, full ROM. Absent: lymphadenopathy - Respiratory Respiratory exam: Present: normal lung sounds bilaterally. Absent: respiratory distress, wheezes, stridor, chest wall tenderness (left anterior lateral ) - Cardiovascular Cardiovascular Exam: Present: regular rate, normal rhythm, normal heart sounds. Absent: systolic murmur, diastolic murmur, rubs, gallop - GI/Abdominal GI/Abdominal exam: Present: soft, normal bowel sounds. Absent: tenderness, guarding, bruit - Rectal Rectal exam: Present: deferred - External exam: Present: other (exam deferred ) - Extremities Exam Extremities exam: Present: normal inspection, tenderness, normal capillary refill, calf tenderness. Absent: pedal edema - Back Exam Back exam: Present: normal inspection, full ROM, muscle spasm, paraspinal tenderness, vertebral tenderness, rash noted. Absent: tenderness, CVA tenderness (R), CVA tenderness (L) - Neurological Exam Neurological exam: Present: alert, oriented X3, CN II-XII intact, normal gait, motor sensory deficit, reflexes normal - Psychiatric Psychiatric exam: Present: normal affect, normal mood - Skin Skin exam: Present: warm, dry, intact, normal color. Absent: rash SHAR score - Shar Score Age > 65: (0) No Aspirin use within the Past 7 Days: (0) No 3 or more CAD Risk Factors: (0) No 2 or more Angina events in past 24 hrs: (0) No Known CAD with more than 50% Stenosis: (0) No Elevated Cardiac Markers: (0) No ST Deviation Greater than 0.5mm: (0) No SHAR Score: 0 ED Medical Decision Making - Lab Data Result diagrams: 12/13/18 20:51 12/13/18 20:51 - EKG Data -: EKG Interpreted by Nd EKG shows normal: sinus rhythm Rate: normal - EKG Data When compared to previous EKG there are: previous EKG unavailable Interpretation: normal EKG 12/14/18 02:09 ekg interp by ed attending NSR no ST elevated [place], - Radiology Data Radiology results: report reviewed, image reviewed Ordering Physician: MG BOWEN Date of Service: 12/13/18 Procedure(s): XR chest 1V ap Accession Number(s): [id number] cc: MG BOWEN Fluoro Time In Minutes: PROCEDURE: XR CHEST 1V AP TECHNIQUE: Chest radiograph single view. HISTORY: Chest Pain COMPARISONS: None . FINDINGS: Heart: Normal. Mediastinum/Vessels: Normal. Lungs/Pleural space: Normal. Bony thorax: No acute osseous abnormality. Life support devices: None. IMPRESSION: No acute cardiopulmonary abnormality. This document is electronically signed by Roberto Julien MD., Dec 13 2018 10:09:10 PM ET Transcribed By: CO Dictated By: ROBERTO JULIEN MD Electronically Authenticated By: ROBERTO JULIEN MD Signed Date/Time: 12/13/182210 DD/ 29 TD/TT: 12/13/182129 - Medical Decision Making CXR: no infiltrate no opacities, symptoms improve with medications given in ed plan: albuterol inhaler, decadron, ibuprofen, azithromycin, pt will follow up with pcp in 2-3 days pt verbalized agreement and understanding of discharge plan. ED Disposition Clinical Impression: Bronchitis URI (upper respiratory infection) Qualifiers: URI type: unspecified viral URI Qualified Code(s): J06.9 - Acute upper respiratory infection, unspecified Disposition: -01 TO HOME OR SELFCARE Is pt being admited?: No Does the pt Need Aspirin: No Condition: Stable Instructions: Upper Respiratory Infection (ED), Acute Bronchitis (ED) Prescriptions: Dexamethasone [Decadron] 4 mg PO BID 2 Days #4 tablet Ibuprofen [Motrin 800 MG tab] 800 mg PO Q8HR PRN #30 tablet PRN Reason: pain fever Potassium Chloride 40 meq PO DAILY #45 ALBUTEROL Inhaler (OR & NICU) [ProAir HFA Inhaler] 2 puff IH QID PRN #1 inhalation PRN Reason: Shortness Of Breath Benzonatate [Tessalon Perles] 100 mg PO Q8HR PRN #30 capsule PRN Reason: cough Azithromycin [Zithromax Z-KIMBERLY] 250 mg PO DAILY 5 Days #6 tab Referrals: [facility] [Outside] - 3-5 Days Forms: Work/School Release Form(ED) Time of Disposition: 02:09 <EMI PAREDES - Last Filed: 12/15/18 23:12> ED Review of Systems ROS: Stated complaint: CHEST PAIN/SOB Other details as noted in HPI ED Course Vital Signs 12/13/18 12/13/18 12/14/18 20:02 20:36 02:21 Temperature 97.9 F 97.9 F Pulse Rate 89 85 Respiratory 18 18 Rate Blood Pressure 175/115 175/115 Blood Pressure 148/98 [Left] O2 Sat by Pulse 100 100 Oximetry ED Medical Decision Making - Lab Data Result diagrams: 12/13/18 20:51 12/13/18 20:51 - Medical Decision Making bp improved prior to d/c Critical care attestation.: If time is entered above; I have spent that time in minutes in the direct care of this critically ill patient, excluding procedure time. ED Disposition Is pt being admited?: No
[2018-12-14] MEDS ORDERED: K-DUR PO ONE (02:10)
[2018-12-14 02:22] VITALS: BP 148/98
== END 2018-12-14 02:23 | disposition home or self-care (01) ==
LOC: ED 19:58
DX: J40 Bronchitis, not specified as acute or chronic (principal); J06.9 Acute upper respiratory infection, unspecified; Z88.8 Allergy status to other drugs, medicaments and biological substances; Z88.5 Allergy status to narcotic agent
CPT/HCPCS: 36415; 71045; 80048; 84484; 85025; 93005; 93010; 94640; 96372; 99284; J1100

== ENCOUNTER 2019-04-18 14:37 | Emergency (ER) | payer MEDICAID, OTHER ==
--- NOTE | 2019-04-18 15:26 | Event Note ---
ED Screening Note Date of service: 04/18/19 Time: 15:23 ED Screening Note: 38 y o female presents with right sided and low pelvic abd pain x 1 week denies n/v/d/vag bleed, vag d/c This initial assessment/diagnostic orders/clinical plan/treatment(s) is/are subject to change based on patients health status, clinical progression and re- assessment by fellow clinical providers in the ED. Further treatment and workup at subsequent clinical providers discretion. Patient/guardian urged not to elope from the ED as their condition may be serious if not clinically assessed and managed. Initial orders include: ua, upt, cbc,cmp
[2019-04-18 15:42] LABS: Basophils # (Auto) 0.1 K/mm3 (0.0-0.1); Basophils % (Auto) 1.1 % (0.0-1.8); Eosinophils # (Auto) 0.6 K/mm3 (0.0-0.4); Eosinophils % (Auto) 12.1 % (0.0-4.3); Hematocrit 34.2 % (30.3-42.9); Hemoglobin 11.3 gm/dl (10.1-14.3); Lymphocytes # (Auto) 1.9 K/mm3 (1.2-5.4); Lymphocytes % (Auto) 39.7 % (13.4-35.0); Mean Corpuscular HGB Conc 33 % (30-34); Mean Corpuscular Volume 83 fl (79-97); Monocytes # (Auto) 0.4 K/mm3 (0.0-0.8); Monocytes % (Auto) 7.2 % (0.0-7.3); Platelet Count 260 K/mm3 (140-440); Red Cell Distribution Width 18.1 % (13.2-15.2)
[2019-04-18 15:56] LABS: Bacteria,Urine 1+ /HPF (Negative); Bilirubin,Urine NEG (Negative); Blood,Urine NEG (Negative); Color,Urine Yellow (Yellow); Mucus,Urine FEW /HPF; Protein,Urine <15 mg/dL mg/dL (Negative); Urobilinogen,Urine < 2.0 mg/dL (<2.0)
[2019-04-18 15:59] LABS: HCG Qualitative,Urine Negative (Negative)
[2019-04-18 16:03] LABS: BUN/Creatinine Ratio 16; Blood Urea Nitrogen 11 mg/dL (7-17); Calcium 7.9 mg/dL (8.4-10.2); Hemolysis Index 1
--- NOTE | 2019-04-18 17:28 | Emergency Department Report ---
<LATHA KIRKPATRICK - Last Filed: 04/18/19 18:31> ED Abdominal Pain HPI - General Chief Complaint: Abdominal Pain Stated Complaint: ABD PAIN Time Seen by Provider: 04/18/19 15:22 Source: patient Mode of arrival: Ambulatory Limitations: No Limitations - History of Present Illness Initial Comments: Patient reports flare-up generalized abdominal pain with burning that started two weeks ago. MD Complaint: abdominal pain Onset/Timin -: week(s) Location: diffuse Radiation: none Migration to: no migration Severity: severe Severity scale (0 -10): 8 Quality: burning Consistency: intermittent Improves With: nothing Worsens With: nothing Context: other (none) Associated Symptoms: denies: nausea, vomiting, diarrhea, fever, chills, constipation, dysuria, hematemesis, hematochezia, melena, hematuria, anorexia, syncope Treatments Prior to Arrival: other - Related Data LMP Date: 03/10/19 LMP (females 10-50): 1 month Previous Rx's Medication Instructions Recorded Last Taken Type Ondansetron [Zofran Odt] 4 mg PO Q8HR PRN #12 tab.rapdis 08/14/17 3 Days Ago Rx ~03/22/18 Ferrous Sulfate 325 mg PO BID #60 tablet. 01/24/18 Unknown Rx Ibuprofen [Motrin] 600 mg PO Q8H PRN #30 tablet 01/24/18 Unknown Rx oxyCODONE /ACETAMINOPHEN [Percocet 1 tab PO Q6HR PRN #30 tablet 01/24/18 Unknown Rx 5/325] Fluconazole [Diflucan] 150 mg PO DAILY #2 tablet 01/28/18 Unknown Rx Ondansetron [Zofran ODT TAB] 8 mg PO Q8HR #30 tab.rapdis 01/28/18 Unknown Rx Pantoprazole [Protonix] 40 mg PO QDAY #30 tablet 01/28/18 Unknown Rx Docusate Sodium [Colace] 100 mg PO BID PRN #60 capsule 03/27/18 Unknown Rx Ferrous Sulfate [Feosol 325 MG tab] 325 mg PO TID #90 tablet 03/27/18 Unknown Rx Ibuprofen [Motrin] 800 mg PO Q8HR PRN #30 tablet 03/27/18 Unknown Rx oxyCODONE /ACETAMINOPHEN [Percocet 1 tab PO Q6HR PRN #40 tablet 03/27/18 Unknown Rx 5/325] ALBUTEROL Inhaler (OR & NICU) 2 puff IH QID PRN #1 inhalation 12/14/18 Unknown Rx [ProAir HFA Inhaler] Azithromycin [Zithromax Z-KIMBERLY] 250 mg PO DAILY 5 Days #6 tab 12/14/18 Unknown Rx Benzonatate [Tessalon Perles] 100 mg PO Q8HR PRN #30 capsule 12/14/18 Unknown Rx Ibuprofen [Motrin 800 MG tab] 800 mg PO Q8HR PRN #30 tablet 12/14/18 Unknown Rx Potassium Chloride 40 meq PO DAILY #45 12/14/18 Unknown Rx dexAMETHasone [Decadron] 4 mg PO BID 2 Days #4 tablet 12/14/18 Unknown Rx traMADol [Ultram 50 MG tab] 50 mg PO Q6HR PRN #12 tablet 04/18/19 Unknown Rx Allergies Allergy/AdvReac Type Severity Reaction Status Date / Time promethazine HCl Allergy Vomiting Verified 06/29/15 23:28 [From Phenergan] metoclopramide [From Reglan] AdvReac Unknown Verified 03/25/18 14:14 ED Review of Systems Constitutional: denies: chills, fever Eyes: denies: eye pain, eye discharge, vision change ENT: denies: ear pain, throat pain Respiratory: denies: cough, shortness of breath, wheezing Cardiovascular: denies: chest pain, palpitations Endocrine: no symptoms reported Gastrointestinal: abdominal pain. denies: nausea, vomiting, diarrhea, constipation, hematemesis, melena Genitourinary: denies: urgency, dysuria, discharge Musculoskeletal: denies: back pain, joint swelling, arthralgia Skin: denies: rash, lesions Neurological: denies: headache, weakness, paresthesias Psychiatric: denies: anxiety, depression Hematological/Lymphatic: denies: easy bleeding, easy bruising ED Past Medical Hx - Past Medical History Previous Medical History?: No Hx Hypertension: No Hx Congestive Heart Failure: No Hx Diabetes: No Hx Deep Vein Thrombosis: No Hx Renal Disease: No Hx Sickle Cell Disease: No Hx Seizures: No Hx Asthma: No Hx COPD: No Hx HIV: No - Surgical History Past Surgical History?: Yes Additional Surgical History: d+c. Fibroid tumor removed. x1 - Social History Smoking Status: Never Smoker Substance Use Type: None - Medications Home Medications: Home Medications Medication Instructions Recorded Confirmed Last Taken Type Ondansetron [Zofran Odt] 4 mg PO Q8HR PRN #12 tab.rapdis 08/14/17 03/25/18 3 Days Ago Rx ~03/22/18 Ferrous Sulfate 325 mg PO BID #60 tablet. 01/24/18 03/25/18 Unknown Rx Ibuprofen [Motrin] 600 mg PO Q8H PRN #30 tablet 01/24/18 03/25/18 Unknown Rx oxyCODONE /ACETAMINOPHEN [Percocet 1 tab PO Q6HR PRN #30 tablet 01/24/18 03/25/18 Unknown Rx 5/325] Fluconazole [Diflucan] 150 mg PO DAILY #2 tablet 01/28/18 03/25/18 Unknown Rx Ondansetron [Zofran ODT TAB] 8 mg PO Q8HR #30 tab.rapdis 01/28/18 03/25/18 Unknown Rx Pantoprazole [Protonix] 40 mg PO QDAY #30 tablet 01/28/18 03/25/18 Unknown Rx Docusate Sodium [Colace] 100 mg PO BID PRN #60 capsule 03/27/18 Unknown Rx Ferrous Sulfate [Feosol 325 MG tab] 325 mg PO TID #90 tablet 03/27/18 Unknown Rx Ibuprofen [Motrin] 800 mg PO Q8HR PRN #30 tablet 03/27/18 Unknown Rx oxyCODONE /ACETAMINOPHEN [Percocet 1 tab PO Q6HR PRN #40 tablet 03/27/18 Unknown Rx 5/325] ALBUTEROL Inhaler (OR & NICU) 2 puff IH QID PRN #1 inhalation 12/14/18 Unknown Rx [ProAir HFA Inhaler] Azithromycin [Zithromax Z-KIMBERLY] 250 mg PO DAILY 5 Days #6 tab 12/14/18 Unknown Rx Benzonatate [Tessalon Perles] 100 mg PO Q8HR PRN #30 capsule 12/14/18 Unknown Rx Ibuprofen [Motrin 800 MG tab] 800 mg PO Q8HR PRN #30 tablet 12/14/18 Unknown Rx Potassium Chloride 40 meq PO DAILY #45 12/14/18 Unknown Rx dexAMETHasone [Decadron] 4 mg PO BID 2 Days #4 tablet 12/14/18 Unknown Rx traMADol [Ultram 50 MG tab] 50 mg PO Q6HR PRN #12 tablet 04/18/19 Unknown Rx ED Physical Exam - General Limitations: No Limitations General appearance: alert, in no apparent distress - Respiratory Respiratory exam: Present: normal lung sounds bilaterally. Absent: respiratory distress, wheezes, rales, rhonchi, stridor, chest wall tenderness, accessory muscle use, decreased breath sounds, prolonged expiratory - Cardiovascular Cardiovascular Exam: Present: regular rate, normal rhythm, normal heart sounds. Absent: systolic murmur, diastolic murmur, rubs, gallop - GI/Abdominal GI/Abdominal exam: Present: soft, tenderness (generalized), normal bowel sounds, other (obese). Absent: guarding, rebound, rigid, hyperactive bowel sounds, hypoactive bowel sounds, organomegaly, mass, bruit, pulsatile mass, hernia - Expanded GI/Abdominal Exam Expanded GI/Abdominal exam: Absent: psoas sign, obturator sign, heel tap sign, Marquez's sign, Rovsing's sign, tenderness at Mcburney's Point, ascites - Extremities Exam Extremities exam: Present: normal inspection, full ROM, normal capillary refill. Absent: tenderness - Back Exam Back exam: Present: normal inspection, full ROM. Absent: tenderness, CVA tenderness (R), CVA tenderness (L), muscle spasm, paraspinal tenderness, ve rtebral tenderness - Neurological Exam Neurological exam: Present: alert, oriented X3, CN II-XII intact, normal gait, reflexes normal. Absent: motor sensory deficit - Psychiatric Psychiatric exam: Present: normal affect, normal mood - Skin Skin exam: Present: warm, dry, intact, normal color. Absent: rash ED Medical Decision Making - Lab Data Result diagrams: 04/18/19 15:32 04/18/19 15:32 Lab Results 04/18/19 04/18/19 04/18/19 Range/Units 15:32 15:32 15:36 WBC 4.9 (4.5-11.0) K/mm3 RBC 4.10 (3.65-5.03) M/mm3 Hgb 11.3 (10.1-14.3) gm/dl Hct 34.2 (30.3-42.9) % MCV 83 (79-97) fl MCH 28 (28-32) pg MCHC 33 (30-34) % RDW 18.1 H (13.2-15.2) % Plt Count 260 (140-440) K/mm3 Lymph % (Auto) 39.7 H (13.4-35.0) % Kimball % (Auto) 7.2 (0.0-7.3) % Eos % (Auto) 12.1 H (0.0-4.3) % Baso % (Auto) 1.1 (0.0-1.8) % Lymph # 1.9 (1.2-5.4) K/mm3 Kimball # 0.4 (0.0-0.8) K/mm3 Eos # 0.6 H (0.0-0.4) K/mm3 Baso # 0.1 (0.0-0.1) K/mm3 Seg Neutrophils % 39.9 L (40.0-70.0) % Seg Neutrophils # 2.0 (1.8-7.7) K/mm3 Sodium 142 (137-145) mmol/L Potassium 3.5 L (3.6-5.0) mmol/L Chloride 107.7 H (98-107) mmol/L Carbon Dioxide 24 (22-30) mmol/L Anion Gap 14 mmol/L BUN 11 (7-17) mg/dL Creatinine 0.7 (0.7-1.2) mg/dL Estimated GFR > 60 ml/min BUN/Creatinine Ratio 16 % Glucose 80 (65-100) mg/dL Calcium 7.9 L (8.4-10.2) mg/dL Urine Color Yellow (Yellow) Urine Turbidity Clear (Clear) Urine pH 6.0 (5.0-7.0) Ur Specific Adams 1.021 (1.003-1.030) Urine Protein <15 mg/dl (Negative) mg/dL Urine Glucose (UA) Neg (Negative) mg/dL Urine Ketones Neg (Negative) mg/dL Urine Blood Neg (Negative) Urine Nitrite Neg (Negative) Urine Bilirubin Neg (Negative) Urine Urobilinogen < 2.0 (<2.0) mg/dL Ur Leukocyte Esterase Sm (Negative) Urine WBC (Auto) 4.0 (0.0-6.0) /HPF Urine RBC (Auto) 3.0 (0.0-6.0) /HPF U Epithel Cells (Auto) 5.0 (0-13.0) /HPF Urine Bacteria (Auto) 1+ (Negative) /HPF Ur Transition Epith Cell 1 /HPF Urine Mucus Few /HPF Urine HCG, Qual Negative (Negative) - Radiology Data Radiology results: image reviewed CT OF THE ABDOMEN AND PELVIS WITHOUT CONTRAST INDICATION / CLINICAL INFORMATION: Upper and lower abdominal pain. TECHNIQUE: All CT scans at this location are performed using CT dose reduction for ALARA by means of automated exposure control. COMPARISON: None available. FINDINGS: ABDOMEN: There are multiple gallstones which are predominantly noncalcified. The gallbladder is normal in size without wall thickening or bile duct dilatation. The liver, spleen, pancreas, adrenal glands, kidneys and bowel demonstrate no significant abnormality. No adenopathy is seen. There is mild right basilar subsegmental atelectasis. PELVIS: The distal ureters and urinary bladder are normal. The uterus and adnexal regions are unremarkable. A normal appendix is present and there is no evidence of divertic ulitis. No abnormal mass or fluid collection is seen. I do not identify a hernia. There are mild deg enerative changes at the lumbosacral junction. IMPRESSION: Cholelithiasis without CT evidence of acute cholecystitis. Depending on clinical findings, gallbladder ultrasound or hepatobiliary scintigraphy may be helpful in further evaluation. - Differential Diagnosis Cholelithiasis, Abdominal Pain, UTI ED Disposition Clinical Impression: Abdominal pain Qualifiers: Abdominal location: generalized Qualified Code(s): R10.84 - Generalized abdominal pain Cholelithiasis Qualifiers: Cholelithiasis location: gallbladder Cholecystitis presence: without cholecystitis Biliary obstruction: without biliary obstruction Qualified Code(s): K80.20 - Calculus of gallbladder without cholecystitis without obstruction Disposition: - TO HOME OR SELFCARE Condition: Stable Instructions: Cholelithiasis (ED), Abdominal Pain (ED) Additional Instructions: Please take medication as prescribed as needed. do not drive or operate machinery while taking pain medication. Follow up with a general surgeon in the next 2-3 days. Return to the emergency room for any new or worsening symptoms. Prescriptions: traMADol [Ultram 50 MG tab] 50 mg PO Q6HR PRN #12 tablet PRN Reason: Pain Referrals: MELISA ADLER DO [Staff Physician] - 2-3 Days Print Language: YORUBA <CONNIE KAUFFMAN - Last Filed: 04/19/19 06:24> ED Review of Systems ROS: Stated complaint: ABD PAIN Other details as noted in HPI ED Course Vital Signs 04/18/19 04/18/19 04/18/19 15:22 22:06 23:38 Temperature 98.6 F 98.0 F Pulse Rate 73 77 Respiratory 16 16 18 Rate Blood Pressure 151/95 140/79 [Left] O2 Sat by Pulse 99 100 Oximetry ED Medical Decision Making - Lab Data Result diagrams: 04/18/19 15:32 04/18/19 15:32 - Radiology Data Radiology results: report reviewed ULTRASOUND ABDOMEN, LIMITED (RIGHT UPPER QUADRANT) INDICATION: pain- recommend after CT Scan COMPARISON: CT abdomen and pelvis tonight LIMITATIONS: None FINDINGS: Pancreas: Visualized portion shows no significant abnormality. Liver: Normal. Gallbladder: Several gallstones are seen. No gallbladder wall thickening is noted. The technologist reported a positive Marquez's sign however. Bile ducts: Normal. Common Bile Duct measures 2 mm. Right Kidney: Small echogenic foci are noted presumably calculi but these were not identifiable on CT which is more accurate. No significant obstructive changes are seen. Free fluid: None. Additional Findings: None. IMPRESSION: Cholelithiasis without obvious acute change seen sonographically but with a report from the technologist of a positive Marquez's sign. Clinical correlation is suggested. Signer Name: Sarabjit Rojas MD Signed: 04/18/2019 9:48 PM Workstation Name: [id number] Transcribed By: MILTON Dictated By: Sarabjit Rojas MD Electronically Authenticated By: Sarabjit Rojas MD Signed Date/Time: 04/18/19 1702 - Medical Decision Making signed out pending US results US shows: Cholelithiasis without obvious acute change seen sonographically but with a report from the technologist of a positive Marquez's sign. Clinical correlation is suggested. Discussed ultrasound findings with patient. pts discomfort treated while in the emergency department and improved. She is tolerating by mouth intake. pts labs are normal. NO Leukocytosis, no signs of obstruction, bilirubin is normal. discussed with pt that she needed to follow up with a general surgeon as an outpatient to discuss her options for her cholelithiasis. pt given prescription for pain medication. advised pt to please take medication as prescribed as needed. do not drive or operate machinery while taking pain medication. Follow up with a general surgeon in the next 2-3 days. Return to the emergency room for any new or worsening symptoms. advised pt to return if worsening pain, fever/chills, nausea/vomiting, or unable to keep food/liquids down. Critical care attestation.: If time is entered above; I have spent that time in minutes in the direct care of this critically ill patient, excluding procedure time. ED Disposition Is pt being admited?: No Does the pt Need Aspirin: No Time of Disposition: 21:57
--- NOTE | 2019-04-18 18:26 | Cat Scan Report ---
CT OF THE ABDOMEN AND PELVIS WITHOUT CONTRAST INDICATION / CLINICAL INFORMATION: Upper and lower abdominal pain. TECHNIQUE: All CT scans at this location are performed using CT dose reduction for ALARA by means of automated e xposure control. COMPARISON: None available. FINDINGS: ABDOMEN: There are multiple gallstones which are predominantly noncalcified. The gallbladder is jay l in size without wall thickening or bile duct dilatation. The liver, spleen, pancreas, adrenal gland s, kidneys and bowel demonstrate no significant abnormality. No adenopathy is seen. There is mild rig ht basilar subsegmental atelectasis. PELVIS: The distal ureters and urinary bladder are normal. The uterus and adnexal regions are unremar kable. A normal appendix is present and there is no evidence of diverticulitis. No abnormal mass or f luid collection is seen. I do not identify a hernia. There are mild degenerative changes at the lumbo sacral junction. IMPRESSION: Cholelithiasis without CT evidence of acute cholecystitis. Depending on clinical findings , gallbladder ultrasound or hepatobiliary scintigraphy may be helpful in further evaluation. Signer Name: Liam Richardson MD Signed: 04/18/2019 6:22 PM Workstation Name: [id number]
[2019-04-18 19:53] LABS: Alanine Aminotransferase 8 units/L (7-56); Albumin 3.6 g/dL (3.9-5)
[2019-04-18 19:54] LABS: Bilirubin,Direct < 0.2 mg/dL (0-0.2)
--- NOTE | 2019-04-18 21:53 | Ultrasound Report ---
ULTRASOUND ABDOMEN, LIMITED (RIGHT UPPER QUADRANT) INDICATION: pain- recommend after CT Scan COMPARISON: CT abdomen and pelvis tonight LIMITATIONS: None FINDINGS: Pancreas: Visualized portion shows no significant abnormality. Liver: Normal. Gallbladder: Several gallstones are seen. No gallbladder wall thickening is noted. The technologist r eported a positive Marquez's sign however. Bile ducts: Normal. Common Bile Duct measures 2 mm. Right Kidney: Small echogenic foci are noted presumably calculi but these were not identifiable on CT which is more accurate. No significant obstructive changes are seen. Free fluid: None. Additional Findings: None. IMPRESSION: Cholelithiasis without obvious acute change seen sonographically but with a report from t [facility] technologist of a positive Marquez's sign. Clinical correlation is suggested. Signer Name: Sarabjit Rojas MD Signed: 04/18/2019 9:48 PM Workstation Name: [id number]
[2019-04-18] MEDS ORDERED: traMADol 50 MG TAB PO ONE (22:02)
[2019-04-18 23:39] VITALS: BP 140/79
== END 2019-04-18 22:15 | disposition home or self-care (01) ==
LOC: ED 14:37
DX: K80.20 Calculus of gallbladder without cholecystitis without obstruction (principal); Z88.5 Allergy status to narcotic agent; Z79.1 Long term (current) use of non-steroidal anti-inflammatories (NSAID); Z79.899 Other long term (current) drug therapy
CPT/HCPCS: 36415; 74176; 76705; 80048; 80076; 81001; 81025; 85025; 99284

== ENCOUNTER 2019-10-17 23:47 | Emergency (ER) | payer SELFPAY ==
[2019-10-18 00:52] LABS: Basophils # (Auto) 0.1 K/mm3 (0.0-0.1); Eosinophils # (Auto) 0.5 K/mm3 (0.0-0.4); Eosinophils % (Auto) 8.4 % (0.0-4.3); Hematocrit 36.9 % (30.3-42.9); Hemoglobin 12.3 gm/dl (10.1-14.3); Lymphocytes # (Auto) 2.6 K/mm3 (1.2-5.4); Lymphocytes % (Auto) 41.1 % (13.4-35.0); Mean Corpuscular HGB Conc 33 % (30-34); Mean Corpuscular Volume 87 fl (79-97); Monocytes # (Auto) 0.5 K/mm3 (0.0-0.8); Monocytes % (Auto) 7.4 % (0.0-7.3); Platelet Count 261 K/mm3 (140-440); Red Blood Count 4.25 M/mm3 (3.65-5.03); Red Cell Distribution Width 19.1 % (13.2-15.2)
[2019-10-18 01:15] LABS: Alanine Aminotransferase 12 units/L (7-56); Albumin 3.8 g/dL (3.9-5); BUN/Creatinine Ratio 15; Blood Urea Nitrogen 12 mg/dL (7-17); Calcium 9.1 mg/dL (8.4-10.2); Hemolysis Index 10
--- NOTE | 2019-10-18 01:38 | Ultrasound Report ---
US abdomen limited INDICATION / CLINICAL INFORMATION: ruq abd pain. COMPARISON: 04/18/2019 FINDINGS: Multiple stones are seen in the gallbladder. The gallbladder wall is not thickened. Common bile duct is normal measuring 2 mm. Visualized portions of the liver, aorta and right kidney are normal. IMPRESSION: Cholelithiasis without gallbladder wall thickening Signer Name: Manuel Bear MD FACR Signed: 10/18/2019 1:34 AM Workstation Name: [id number]
[2019-10-18] MEDS ORDERED: SODIUM CHLORIDE 0.9% 1000 ML 1,000 ML IV ONE (02:17)
[2019-10-18] MEDS ORDERED: ONDANSETRON 4 MG/2 ML INJ IV ONE (02:17)
[2019-10-18] MEDS ORDERED: HYDROmorphone 1 MG/1 ML INJ IV ONE (02:17)
--- NOTE | 2019-10-18 02:19 | Emergency Department Report ---
ED Abdominal Pain HPI - General Chief Complaint: Abdominal Pain Stated Complaint: PAIN ON RIGHT SIDE,RIGHT NECK/SHOULDER PAIN/SOB Time Seen by Provider: 10/18/19 02:15 Source: patient Mode of arrival: Ambulatory Limitations: No Limitations - History of Present Illness Initial Comments: Patient is a 38-year-old female that presents emergency room with complaints of right flank and abdominal pain. Patient states it started 4 days ago. Patient states is worsening. Patient states the pain is radiating to her back. Patient states the pain is also radiating to her right shoulder. Patient states she has a history of gallbladder disease and has never had her gallbladder taken out. Patient states that her gallbladder disease was discovered while she was she was told to get to the and then have her gallbladder checked but she never did. Patient states the pain is a 10 out of 10. Patient states the pain is worse with movement better with rest. Patient denies fever and chills. Patient denies nausea vomiting. Patient states the pain is severe. Patient states the pain is a stabbing pain. Patient denies recent travel. Patient denies recent international travel. Patient denies exposure to the novel coronavirus. Patient denies sick contacts. Patient denies fever and chills. Patient denies cough. Patient denies d iarrhea. Patient denies coming in contact with anybody with symptoms of the novel coronavirus. MD Complaint: abdominal pain -: Sudden Location: RUQ, R flank Radiation: back, other Migration to: no migration Severity: severe Severity scale (0 -10): 10 Quality: stabbing, sharp Consistency: constant Improves With: rest Worsens With: movement Associated Symptoms: denies: nausea, vomiting, diarrhea, fever, chills, constipation, dysuria, hematemesis, hematochezia, melena, hematuria, syncope - Related Data LMP (females 10-50): last week Previous Rx's Medication Instructions Recorded Last Taken Type Ondansetron [Zofran Odt] 4 mg PO Q8HR PRN #12 tab.armando 08/14/17 3 Days Ago Rx ~03/22/18 Ferrous Sulfate 325 mg PO BID #60 tablet. 01/24/18 Unknown Rx Ibuprofen [Motrin] 600 mg PO Q8H PRN #30 tablet 01/24/18 Unknown Rx oxyCODONE /ACETAMINOPHEN [Percocet 1 tab PO Q6HR PRN #30 tablet 01/24/18 Unknown Rx 5/325] Fluconazole [Diflucan] 150 mg PO DAILY #2 tablet 01/28/18 Unknown Rx Ondansetron [Zofran ODT TAB] 8 mg PO Q8HR #30 tab.rapdis 01/28/18 Unknown Rx Pantoprazole [Protonix] 40 mg PO QDAY #30 tablet 01/28/18 Unknown Rx Docusate Sodium [Colace] 100 mg PO BID PRN #60 capsule 03/27/18 Unknown Rx Ferrous Sulfate [Feosol 325 MG tab] 325 mg PO TID #90 tablet 03/27/18 Unknown Rx Ibuprofen [Motrin] 800 mg PO Q8HR PRN #30 tablet 03/27/18 Unknown Rx oxyCODONE /ACETAMINOPHEN [Percocet 1 tab PO Q6HR PRN #40 tablet 03/27/18 Unknown Rx 5/325] Albuterol INH(or & Nicu Only) 2 puff IH QID PRN #1 inhalation 12/14/18 Unknown Rx [ProAir HFA Inhaler] Azithromycin [Zithromax Z-KIMBERLY] 250 mg PO DAILY 5 Days #6 tab 12/14/18 Unknown Rx Benzonatate [Tessalon Perles] 100 mg PO Q8HR PRN #30 capsule 12/14/18 Unknown Rx Ibuprofen [Motrin 800 MG tab] 800 mg PO Q8HR PRN #30 tablet 12/14/18 Unknown Rx Potassium Chloride 40 meq PO DAILY #45 12/14/18 Unknown Rx dexAMETHasone [Decadron] 4 mg PO BID 2 Days #4 tablet 12/14/18 Unknown Rx traMADoL [Ultram 50 MG tab] 50 mg PO Q6HR PRN #12 tablet 10/18/19 Unknown Rx Allergies Allergy/AdvReac Type Severity Reaction Status Date / Time promethazine HCl Allergy Vomiting Verified 06/29/15 23:28 [From Phenergan] metoclopramide [From Reglan] AdvReac Unknown Verified 03/25/18 14:14 ED Review of Systems ROS: Stated complaint: PAIN ON RIGHT SIDE,RIGHT NECK/SHOULDER PAIN/SOB Other details as noted in HPI Constitutional: denies: chills, fever Eyes: denies: eye pain, eye discharge, vision change ENT: denies: ear pain, throat pain Respiratory: denies: cough, shortness of breath, wheezing Cardiovascular: denies: chest pain, palpitations Endocrine: no symptoms reported Gastrointestinal: as per HPI, abdominal pain. denies: nausea, diarrhea Genitourinary: denies: urgency, dysuria, discharge Musculoskeletal: denies: back pain, joint swelling, arthralgia Skin: denies: rash, lesions Neurological: denies: headache, weakness, paresthesias Psychiatric: denies: anxiety, depression Hematological/Lymphatic: denies: easy bleeding, easy bruising ED Past Medical Hx - Past Medical History Previous Medical History?: Yes Hx Hypertension: No Hx Congestive Heart Failure: No Hx Diabetes: No Hx Deep Vein Thrombosis: No Hx Renal Disease: No Hx Sickle Cell Disease: No Hx Seizures: No Hx Asthma: No Hx COPD: No Hx HIV: No Additional medical history: Gallbladder disease - Surgical History Past Surgical History?: Yes Additional Surgical History: d+c. Fibroid tumor removed. x1 - Family History Family history: no significant - Social History Smoking Status: Never Smoker Substance Use Type: None - Medications Home Medications: Home Medications Medication Instructions Recorded Confirmed Last Taken Type Ondansetron [Zofran Odt] 4 mg PO Q8HR PRN #12 tab.rapdis 08/14/17 03/25/18 3 Days Ago Rx ~03/22/18 Ferrous Sulfate 325 mg PO BID #60 tablet. 01/24/18 03/25/18 Unknown Rx Ibuprofen [Motrin] 600 mg PO Q8H PRN #30 tablet 01/24/18 03/25/18 Unknown Rx oxyCODONE /ACETAMINOPHEN [Percocet 1 tab PO Q6HR PRN #30 tablet 01/24/18 03/25/18 Unknown Rx 5/325] Fluconazole [Diflucan] 150 mg PO DAILY #2 tablet 01/28/18 03/25/18 Unknown Rx Ondansetron [Zofran ODT TAB] 8 mg PO Q8HR #30 tab.rapdis 01/28/18 03/25/18 Unknown Rx Pantoprazole [Protonix] 40 mg PO QDAY #30 tablet 01/28/18 03/25/18 Unknown Rx Docusate Sodium [Colace] 100 mg PO BID PRN #60 capsule 03/27/18 Unknown Rx Ferrous Sulfate [Feosol 325 MG tab] 325 mg PO TID #90 tablet 03/27/18 Unknown Rx Ibuprofen [Motrin] 800 mg PO Q8HR PRN #30 tablet 03/27/18 Unknown Rx oxyCODONE /ACETAMINOPHEN [Percocet 1 tab PO Q6HR PRN #40 tablet 03/27/18 Unknown Rx 5/325] Albuterol INH(or & Nicu Only) 2 puff IH QID PRN #1 inhalation 12/14/18 Unknown Rx [ProAir HFA Inhaler] Azithromycin [Zithromax Z-KIMBERLY] 250 mg PO DAILY 5 Days #6 tab 12/14/18 Unknown Rx Benzonatate [Tessalon Perles] 100 mg PO Q8HR PRN #30 capsule 12/14/18 Unknown Rx Ibuprofen [Motrin 800 MG tab] 800 mg PO Q8HR PRN #30 tablet 12/14/18 Unknown Rx Potassium Chloride 40 meq PO DAILY #45 12/14/18 Unknown Rx dexAMETHasone [Decadron] 4 mg PO BID 2 Days #4 tablet 12/14/18 Unknown Rx traMADoL [Ultram 50 MG tab] 50 mg PO Q6HR PRN #12 tablet 10/18/19 Unknown Rx ED Physical Exam - General Limitations: No Limitations General appearance: alert, in no apparent distress - Head Head exam: Present: atraumatic, normocephalic - Eye Eye exam: Present: normal appearance - ENT ENT exam: Present: mucous membranes moist - Neck Neck exam: Present: normal inspection - Respiratory Respiratory exam: Present: normal lung sounds bilaterally. Absent: respiratory distress - Cardiovascular Cardiovascular Exam: Present: regular rate, normal rhythm. Absent: systolic murmur, diastolic murmur, rubs, gallop - GI/Abdominal GI/Abdominal exam: Present: soft, tenderness, normal bowel sounds, other (Positive Marquez sign). Absent: distended, guarding, rebound - Extremities Exam Extremities exam: Present: normal inspection - Back Exam Back exam: Present: normal inspection - Neurological Exam Neurological exam: Present: alert, oriented X3 - Psychiatric Psychiatric exam: Present: normal affect, normal mood - Skin Skin exam: Present: warm, dry, intact, normal color. Absent: rash ED Course Vital Signs 10/17/19 10/18/19 23:51 02:30 Temperature 97.8 F Pulse Rate 87 Respiratory 18 18 Rate Blood Pressure 127/81 O2 Sat by Pulse 97 98 Oximetry - Reevaluation(s) Reevaluation #1: Patient states her pain is much better. Patient denies nausea vomiting. I discussed all results and clinical findings with patient. I discussed plan of care with patient. Patient agrees with plan of care. Patient is stable for discharge. Patient will be discharged home. Patient given discharge instructions. Patient voiced understanding of discharge instructions. 10/18/19 04:05 ED Medical Decision Making - Lab Data Result diagrams: 10/18/19 00:39 10/18/19 00:39 - Radiology Data Radiology results: report reviewed CT abdomen pelvis w con INDICATION / CLINICAL INFORMATION: Pt complains of RIGHT sided flank / abdominal pain.. TECHNIQUE: All CT scans at this location are performed using CT dose reduction for ALARA by means of automated exposure control. COMPARISON: 04/18/2019 FINDINGS: No free fluid is seen in the abdomen. The liver, spleen, kidneys, pancreas, adrenal glands and great vessels are normal. No enlarged mesenteric or retroperitoneal lymph nodes are seen. In the pelvis, no free fluid is seen. No enlarged lymph nodes are identified. The bladder and the appendix are normal. IMPRESSION: Negative CT abdomen and pelvis. No acute findings US abdomen limited INDICATION / CLINICAL INFORMATION: ruq abd pain. COMPARISON: 04/18/2019 FINDINGS: Multiple stones are seen in the gallbladder. The gallbladder wall is not thickened. Common bile duct is normal measuring 2 mm. Visualized portions of the liver, aorta and right kidney are normal. IMPRESSION: Cholelithiasis without gallbladder wall thickening - Medical Decision Making Patient is a 38-year-old female that presents emergency room with complaints of right flank pain. Patient's pain is radiating to her back. Patient clinical findings are consistent with a gallbladder dysfunction and gallbladder stones. Patient has not been eating a low-fat diet. Patient's labs are unremarkable. Patient stable for discharge. Patient given discharge instructions. - Differential Diagnosis Gallbladder dysfunction, gallstones, cholecystitis, cholelithiasis. Critical care attestation.: If time is entered above; I have spent that time in minutes in the direct care of this critically ill patient, excluding procedure time. ED Disposition Clinical Impression: Abdominal pain Qualifiers: Abdominal location: right upper quadrant Qualified Code(s): R10.11 - Right upper quadrant pain Gallbladder calculus Qualifiers: Cholecystitis presence: without cholecystitis Biliary obstruction: without biliary obstruction Qualified Code(s): K80.20 - Calculus of gallbladder without cholecystitis without obstruction Back pain Qualifiers: Back pain location: thoracic back pain Chronicity: acute Back pain laterality: right Qualified Code(s): M54.6 - Pain in thoracic spine Disposition: TO HOME OR SELFCARE Is pt being admited?: No Does the pt Need Aspirin: No Condition: Stable Instructions: Abdominal Pain (ED), Biliary Colic (ED) Additional Instructions: Patient to follow-up with primary care in 2 to 3 days. Patient to follow-up with general surgery in 2 to 3 days. Patient to rest. Patient to increase water. Patient to eat a low-fat, low spice diet. Patient to eat a brat diet.. Patient to take Tylenol or ibuprofen as needed for pain. Patient to take meds as directed. Patient to return to the ER if condition worsens, changes or new symptoms arise. Prescriptions: traMADoL [Ultram 50 MG tab] 50 mg PO Q6HR PRN #12 tablet PRN Reason: Pain Referrals: PRIMARY MD LUBNA [Primary Care Provider] - 2-3 Days NAN FERMIN MD [Staff Physician] - 2-3 Days Time of Disposition: 04:08
[2019-10-18 02:25] LABS: Bilirubin,Urine NEG (Negative); Blood,Urine NEG (Negative); Color,Urine Yellow (Yellow); Mucus,Urine FEW /HPF; Protein,Urine <15 mg/dL mg/dL (Negative); Urobilinogen,Urine < 2.0 mg/dL (<2.0)
[2019-10-18] MEDS ORDERED: KETOROLAC 30 MG/1 ML INJ IV ONE (03:30)
--- NOTE | 2019-10-18 03:34 | Cat Scan Report ---
CT abdomen pelvis w con INDICATION / CLINICAL INFORMATION: Pt complains of RIGHT sided flank / abdominal pain.. TECHNIQUE: All CT scans at this location are performed using CT dose reduction for ALARA by means of automated e xposure control. COMPARISON: 04/18/2019 FINDINGS: No free fluid is seen in the abdomen. The liver, spleen, kidneys, pancreas, adrenal glands and great vessels are normal. No enlarged mesenteric or retroperitoneal lymph nodes are seen. In the pelvis, no free fluid is seen. No enlarged lymph nodes are identified. The bladder and the roman endix are normal. IMPRESSION: Negative CT abdomen and pelvis. No acute findings Signer Name: Manuel Bear MD FACR Signed: 10/18/2019 3:30 AM Workstation Name: [id number]
[2019-10-18 04:52] VITALS: BP 124/80
== END 2019-10-18 04:51 | disposition home or self-care (01) ==
LOC: ED 23:47
DX: K80.20 Calculus of gallbladder without cholecystitis without obstruction (principal); R10.9 Unspecified abdominal pain; M54.9 Dorsalgia, unspecified; M25.511 Pain in right shoulder; M54.2 Cervicalgia; Z88.8 Allergy status to other drugs, medicaments and biological substances; Z79.899 Other long term (current) drug therapy; Z98.890 Other specified postprocedural states
CPT/HCPCS: 36415; 74177; 76705; 80053; 81001; 84703; 85025; 96374; 96375; 99284; J1170; J1885; J2405; J7030; Q9967

== ENCOUNTER 2020-11-16 10:51 | Emergency (ER) | payer MEDICAID, OTHER ==
[2020-11-16] MEDS ORDERED: DICYCLOMINE 20 MG/2 ML INJ IM ONE (12:27)
[2020-11-16] MEDS ORDERED: ONDANSETRON 4 MG ODT TAB PO ONE (12:27)
[2020-11-16] MEDS ORDERED: FAMOTIDINE 20 MG TAB PO ONE (12:27)
--- NOTE | 2020-11-16 12:30 | Emergency Department Report ---
ED N/V/D HPI - General Chief complaint: Nausea/Vomiting/Diarrhea Stated complaint: CHEST PAIN/SOB/DIZZY Time Seen by Provider: 11/16/20 12:18 Source: patient Mode of arrival: Ambulatory Limitations: No Limitations - History of Present Illness Initial comments: 40-year-old female with no significant past history presents to the ER today with complaints of his nausea vomiting and diarrhea. Patient states that her symptoms started about 3 days ago. She states that she last vomited today with 2 episodes and has last had diarrhea today with 3 episodes. She denies any hematemesis hematochezia or melena. She denies any mucus in the stools. She states that she is been having associated intermittent epigastric abdominal pain intermittent dizziness and intermittent generalized shaking, mild body aches and intermittent subjective fever. She is currently on her menstrual cycle. She denies any recent bad food intake, recent antibiotic use, recent travel or any ill contacts. She denies any UTI symptoms, chest pain, shortness of breath or any other symptoms at this time. MD complaint: nausea, vomiting, diarrhea, abdominal pain -: days(s) (3) - Related Data Previous Rx's Medication Instructions Recorded Last Taken Type Ibuprofen [Motrin 800 MG tab] 800 mg PO TID PRN #30 tablet 03/05/20 Unknown Rx oxyCODONE /ACETAMINOPHEN [Percocet 1 - 2 tab PO Q6HR PRN #10 tablet 03/05/20 Unknown Rx 5/325 mg] Dicyclomine [Bentyl] 20 mg PO TID PRN #30 tablet 11/16/20 Unknown Rx Famotidine [Pepcid] 20 mg PO BID #30 tablet 11/16/20 Unknown Rx Ondansetron [Zofran Odt] 4 mg PO Q8HR PRN #15 tab.rapdis 11/16/20 Unknown Rx Sulfamethoxazole/Trimethoprim 1 each PO BID #14 tablet 11/16/20 Unknown Rx [Bactrim DS TAB] Allergies Allergy/AdvReac Type Severity Reaction Status Date / Time promethazine HCl Allergy Vomiting Verified 02/27/20 15:21 [From Phenergan] ED Review of Systems ROS: Stated complaint: CHEST PAIN/SOB/DIZZY Other details as noted in HPI Comment: All other systems reviewed and negative Constitutional: fever, weakness. denies: chills Eyes: denies: eye pain, eye discharge, vision change ENT: denies: ear pain, throat pain Respiratory: denies: cough, shortness of breath, SOB with exertion, SOB at rest, wheezing Cardiovascular: denies: chest pain, palpitations Gastrointestinal: abdominal pain, nausea, vomiting, diarrhea Genitourinary: denies: urgency, dysuria, frequency, hematuria, discharge, abnormal menses Musculoskeletal: myalgia. denies: back pain, joint swelling, arthralgia Skin: denies: rash, lesions Neurological: weakness. denies: headache, numbness, paresthesias, confusion, abnormal gait Psychiatric: denies: anxiety, depression, auditory hallucinations, visual hallucinations, homicidal thoughts, suicidal thoughts Hematological/Lymphatic: denies: easy bleeding, easy bruising ED Past Medical Hx - Past Medical History Previous Medical History?: Yes Hx Hypertension: No Hx Congestive Heart Failure: No Hx Diabetes: No Hx Deep Vein Thrombosis: No Hx Renal Disease: No Hx Sickle Cell Disease: No Hx Seizures: No Hx Asthma: No Hx COPD: No Hx HIV: No Additional medical history: Gallbladder disease - Surgical History Past Surgical History?: Yes Additional Surgical History: d+c. Fibroid tumor removed. x1 - Social History Smoking Status: Never Smoker - Medications Home Medications: Home Medications Medication Instructions Recorded Confirmed Last Taken Type Ibuprofen [Motrin 800 MG tab] 800 mg PO TID PRN #30 tablet 03/05/20 Unknown Rx oxyCODONE /ACETAMINOPHEN [Percocet 1 - 2 tab PO Q6HR PRN #10 tablet 03/05/20 Unknown Rx 5/325 mg] Dicyclomine [Bentyl] 20 mg PO TID PRN #30 tablet 11/16/20 Unknown Rx Famotidine [Pepcid] 20 mg PO BID #30 tablet 11/16/20 Unknown Rx Ondansetron [Zofran Odt] 4 mg PO Q8HR PRN #15 tab.rapdis 11/16/20 Unknown Rx Sulfamethoxazole/Trimethoprim 1 each PO BID #14 tablet 11/16/20 Unknown Rx [Bactrim DS TAB] ED Physical Exam - General Limitations: No Limitations General appearance: alert, in no apparent distress - Head Head exam: Present: atraumatic, normocephalic, normal inspection - Eye Eye exam: Present: normal appearance, PERRL, EOMI Pupils: Present: normal accommodation - ENT ENT exam: Present: normal exam, mucous membranes moist - Neck Neck exam: Present: normal inspection, full ROM - Respiratory Respiratory exam: Present: normal lung sounds bilaterally. Absent: respiratory distress - Cardiovascular Cardiovascular Exam: Present: regular rate, normal rhythm, normal heart sounds - GI/Abdominal GI/Abdominal exam: Present: soft. Absent: distended, tenderness, guarding, rebound - Neurological Exam Neurological exam: Present: alert, oriented X3, CN II-XII intact, normal gait - Psychiatric Psychiatric exam: Present: normal affect, normal mood - Skin Skin exam: Present: intact ED Course Vital Signs 11/16/20 11/16/20 11:21 14:25 Temperature 97.9 F Pulse Rate 78 67 Respiratory 18 18 Rate Blood Pressure 155/111 146/95 [Right] O2 Sat by Pulse 98 Oximetry ED Medical Decision Making - Lab Data Result diagrams: 11/16/20 12:45 11/16/20 12:45 - EKG Data EKG shows normal: sinus rhythm Rate: normal (71) - EKG Data Interpretation: normal EKG - Medical Decision Making The patient is resting comfortably and is alert and in no distress. She reports no vomiting or diarrhea during stay. Her abdominal exam is unremarkable and benign; in particular, there is no discomfort at McBurney's point and there is no pulsatile mass. She is neurologically intact with a normal gait in the ER. Her labs reviewed, potassium is mildly decreased at 3.3 and UA is questionable UTI, urine culture pending but the remainder of her work-up today is unremarkable. Her EKG show no STEMI or other acute ischemic changes or significant dysrhythmias and patient had no complaint of chest pain or shortness of breath. Her history, exam, diagnostic testing and current condition do not suggest acute appendicitis, bowel obstruction, acute cholecystitis, bowel perfo ration, major GI bleed, severe diverticulitis, abdominal aortic aneurysm, mesenteric ischemia, volvulus, severe dehydration or metabolic abnormality, sepsis or other significant pathology to warrant further testing, continued ED treatment, admission or surgical evaluation at this point. Vital signs have been stable during stay. Discussed lab results, suspected diagnosis and treatment plan with patient. The patient's condition is stable and appropriate for discharge from the emergency department. The patient will pursue further outpatient evaluation with the primary care physician. Critical care attestation.: If time is entered above; I have spent that time in minutes in the direct care of this critically ill patient, excluding procedure time. ED Disposition Clinical Impression: Gastroenteritis, UTI (urinary tract infection), Epigastric pain Disposition: - TO HOME OR SELFCARE Is pt being admited?: No Does the pt Need Aspirin: No Condition: Stable Instructions: Viral Gastroenteritis, Adult, [id number], Urinary Tract Infection, Adult, [id number] Additional Instructions: Take the zofran, pepcid, bentyl and bactrim as prescribed. I recommend that you maintain hydrating by drinking lots of fluids. Follow up with PCP in 1 week. Return to ED if symptoms worsens or changes in anyway. Prescriptions: Sulfamethoxazole/Trimethoprim [Bactrim DS TAB] 1 each PO BID #14 tablet Dicyclomine [Bentyl] 20 mg PO TID PRN #30 tablet PRN Reason: Abdominal pain Famotidine [Pepcid] 20 mg PO BID #30 tablet Ondansetron [Zofran Odt] 4 mg PO Q8HR PRN #15 tab.rapdis PRN Reason: Vomiting Referrals: AUGUSTIN FAN MD [Primary Care Provider] - 3-5 Days Forms: Work/School Release Form(ED) Time of Disposition: 14:19
[2020-11-16 13:29] LABS: Bilirubin,Urine NEG (Negative); Blood,Urine LG (Negative); Color,Urine Red (Yellow); Urobilinogen,Urine < 2.0 mg/dL (<2.0)
[2020-11-16 13:31] LABS: Protein,Urine >500 mg/dL (Negative); RBC,Urine > 182.0 /HPF (0.0-6.0); WBC,Urine > 182.0 /HPF (0.0-6.0)
[2020-11-16 13:33] LABS: Basophils % (Auto) 0.5 % (0.0-1.8); Eosinophils # (Auto) 0.1 K/mm3 (0.0-0.4); Eosinophils % (Auto) 3.2 % (0.0-4.3); Hematocrit 40.9 % (30.3-42.9); Hemoglobin 14.2 gm/dl (10.1-14.3); Lymphocytes # (Auto) 1.3 K/mm3 (1.2-5.4); Lymphocytes % (Auto) 29.7 % (13.4-35.0); Mean Corpuscular HGB Conc 35 % (30-34); Mean Corpuscular Volume 89 fl (79-97); Monocytes # (Auto) 0.3 K/mm3 (0.0-0.8); Monocytes % (Auto) 6.3 % (0.0-7.3); Platelet Count 192 K/mm3 (140-440); Red Blood Count 4.58 M/mm3 (3.65-5.03); Red Cell Distribution Width 16.4 % (13.2-15.2)
[2020-11-16 13:53] LABS: Alanine Aminotransferase 9 units/L (7-56); Albumin 3.7 g/dL (3.9-5); Blood Urea Nitrogen 9 mg/dL (7-17); Calcium 8.4 mg/dL (8.4-10.2); Hemolysis Index 0
[2020-11-16 13:54] LABS: BUN/Creatinine Ratio 13
[2020-11-16] MEDS ORDERED: POTASSIUM CHLORIDE ER 20 MEQ TAB PO ONE (14:16)
[2020-11-16 14:26] VITALS: BP 146/95
--- NOTE | 2020-11-19 12:48 | Electrocardiograph Report ---
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
== END 2020-11-16 14:38 | disposition home or self-care (01) ==
LOC: ED 10:51
DX: K52.9 Noninfective gastroenteritis and colitis, unspecified (principal); N39.0 Urinary tract infection, site not specified; R10.13 Epigastric pain; Z98.890 Other specified postprocedural states; Z79.899 Other long term (current) drug therapy; Z88.8 Allergy status to other drugs, medicaments and biological substances
CPT/HCPCS: 36415; 80053; 81001; 83690; 83735; 84703; 85025; 87086; 93005; 96372; 99283; J0500; Q0162

== ENCOUNTER 2020-11-23 07:34 | Emergency (ER) | payer OTHER ==
[2020-11-23 09:16] LABS: Bilirubin,Urine NEG (Negative); Blood,Urine MOD (Negative); Color,Urine Amber (Yellow); Mucus,Urine 3+ /HPF; Protein,Urine >500 mg/dL (Negative)
--- NOTE | 2020-11-23 09:16 | Cat Scan Report ---
CT ABDOMEN AND PELVIS WITHOUT CONTRAST HISTORY: Abdominal pain COMPARISON: CT on 10/18/2019 TECHNIQUE: Routine abdominal and pelvic CT exam performed without contrast. Lack of intravenous cont rast limits evaluation of the vascular and solid organs.. All CT scans at this location are performed using CT dose reduction for ALARA by means of automated exposure control. FINDINGS: CT ABDOMEN: Lung Bases: No significant abnormality. Liver: No significant abnormality. Biliary: Gallbladder is surgically absent. Spleen: No significant abnormality. Unenlarged. Pancreas: No significant abnormality. Adrenals: No significant abnormality. Kidneys: No significant abnormality. Lymphatics: No lymphadenopathy. Vasculature: No significant abnormality. Bowel/Peritoneum: No significant abnormality. No free air. No free fluid. Normal appendix. CT PELVIC: : No significant abnormality. Lymphatics: No lymphadenopathy. Osseous Structures: No aggressive appearing osseous lesions. Additional Findings: None IMPRESSION: 1. No acute findings or findings to explain the patient's symptoms. Signer Name: Parag Villanueva MD Signed: 11/23/2020 9:11 AM Workstation Name: [id number]
--- NOTE | 2020-11-23 09:35 | Emergency Department Report ---
ED Abdominal Pain HPI - General Chief Complaint: Abdominal Pain Stated Complaint: VOMITING BLOOD/ABD PAIN PUI?: No Time Seen by Provider: 11/23/20 08:28 Source: patient Mode of arrival: Wheelchair Limitations: No Limitations - History of Present Illness Initial Comments: 40-year-old female with no significant past history returns to the ER today after being evaluated last week with complaints of epigastric and lower abdominal pain with nausea and vomiting. Patient states that her symptoms started about 7 days ago. Patient states that symptoms is worsened since she was last here. Patient states that yesterday she noticed some blood in her vomit. She states that her menstrual cycle was last week.. She denies any recent bad food intake, recent antibiotic use, recent travel or any ill contacts. She denies any UTI symptoms, chest pain, shortness of breath or any other symptoms at this time. MD Complaint: abdominal pain -: week(s) (1) Location: epigastric, suprapubic Radiation: none Migration to: no migration Severity scale (0 -10): 6 Quality: cramping, aching Improves With: nothing Associated Symptoms: nausea, vomiting. denies: diarrhea, constipation, dysuria - Related Data Previous Rx's Medication Instructions Recorded Last Taken Type Ibuprofen [Motrin 800 MG tab] 800 mg PO TID PRN #30 tablet 03/05/20 Unknown Rx oxyCODONE /ACETAMINOPHEN [Percocet 1 - 2 tab PO Q6HR PRN #10 tablet 03/05/20 Unknown Rx 5/325 mg] Dicyclomine [Bentyl] 20 mg PO TID PRN #30 tablet 11/16/20 Unknown Rx Famotidine [Pepcid] 20 mg PO BID #30 tablet 11/16/20 Unknown Rx Ondansetron [Zofran Odt] 4 mg PO Q8HR PRN #15 tab.rapdis 11/16/20 Unknown Rx Sulfamethoxazole/Trimethoprim 1 each PO BID #14 tablet 11/16/20 Unknown Rx [Bactrim DS TAB] Allergies Allergy/AdvReac Type Severity Reaction Status Date / Time promethazine HCl Allergy Vomiting Verified 02/27/20 15:21 [From Phenergan] ED Review of Systems ROS: Stated complaint: VOMITING BLOOD/ABD PAIN Other details as noted in HPI Comment: All other systems reviewed and negative ED Past Medical Hx - Past Medical History Previous Medical History?: Yes Hx Hypertension: No Hx Congestive Heart Failure: No Hx Diabetes: No Hx Deep Vein Thrombosis: No Hx Renal Disease: No Hx Sickle Cell Disease: No Hx Seizures: No Hx Asthma: No Hx COPD: No Hx HIV: No Additional medical history: Gallbladder disease - Surgical History Past Surgical History?: Yes Hx Cholecystectomy: Yes Additional Surgical History: d+c. Fibroid tumor removed. x1 - Social History Smoking Status: Never Smoker Substance Use Type: None - Medications Home Medications: Home Medications Medication Instructions Recorded Confirmed Last Taken Type Ibuprofen [Motrin 800 MG tab] 800 mg PO TID PRN #30 tablet 03/05/20 Unknown Rx oxyCODONE /ACETAMINOPHEN [Percocet 1 - 2 tab PO Q6HR PRN #10 tablet 03/05/20 Unknown Rx 5/325 mg] Dicyclomine [Bentyl] 20 mg PO TID PRN #30 tablet 11/16/20 Unknown Rx Famotidine [Pepcid] 20 mg PO BID #30 tablet 11/16/20 Unknown Rx Ondansetron [Zofran Odt] 4 mg PO Q8HR PRN #15 tab.rapdis 11/16/20 Unknown Rx Sulfamethoxazole/Trimethoprim 1 each PO BID #14 tablet 11/16/20 Unknown Rx [Bactrim DS TAB] ED Physical Exam - General Limitations: No Limitations General appearance: alert, in no apparent distress - Head Head exam: Present: atraumatic, normocephalic - Eye Eye exam: Present: normal appearance - ENT ENT exam: Present: mucous membranes moist - Neck Neck exam: Present: normal inspection - Respiratory Respiratory exam: Present: normal lung sounds bilaterally. Absent: respiratory distress - Cardiovascular Cardiovascular Exam: Present: regular rate, normal rhythm. Absent: systolic murmur, diastolic murmur, rubs, gallop - GI/Abdominal GI/Abdominal exam: Present: soft, normal bowel sounds - Extremities Exam Extremities exam: Present: normal inspection - Back Exam Back exam: Present: normal inspection - Neurological Exam Neurological exam: Present: alert, oriented X3 - Psychiatric Psychiatric exam: Present: normal affect, normal mood - Skin Skin exam: Present: warm, dry, intact, normal color. Absent: rash ED Course Vital Signs 11/23/20 11/23/20 11/23/20 07:39 08:34 09:31 Temperature 99.1 F Pulse Rate 106 H 84 Respiratory 22 14 Rate Blood Pressure 171/87 131/93 O2 Sat by Pulse 99 99 98 Oximetry 11/23/20 11/23/20 11/23/20 10:01 10:30 11:00 Temperature Pulse Rate Respiratory 16 Rate Blood Pressure 131/93 134/89 137/83 O2 Sat by Pulse 97 99 99 Oximetry 11/23/20 11/23/20 11/23/20 11:30 12:00 12:30 Temperature Pulse Rate Respiratory Rate Blood Pressure 137/84 139/84 140/81 O2 Sat by Pulse 99 99 99 Oximetry 11/23/20 13:00 Temperature Pulse Rate Respiratory Rate Blood Pressure 136/85 O2 Sat by Pulse 99 Oximetry - Reevaluation(s) Reevaluation #1: Upon reevaluation after patient receiving Reglan patient got a little anxious is stated that she needs help. Patient stated that she did not mention it earlier while this provider was triage and her because she did not want people to think of her is crazy. Patient is requesting psychiatric help stating that she does not always want, she feels like she needs help. 11/23/20 10:28 ED Medical Decision Making - Lab Data Result diagrams: 11/23/20 08:42 11/23/20 14:46 Laboratory Tests 11/23/20 11/23/20 11/23/20 08:24 08:42 08:42 WBC 4.3 L RBC 4.43 Hgb 13.4 Hct 39.9 MCV 90 MCH 30 MCHC 34 RDW 16.5 H Plt Count 213 Lymph % (Auto) 25.1 Smith % (Auto) 10.4 H Eos % (Auto) 1.5 Baso % (Auto) 0.2 Lymph # (Auto) 1.1 L Smith # (Auto) 0.4 Eos # (Auto) 0.1 Baso # (Auto) 0.0 Seg Neutrophils % 62.8 Seg Neutrophils # 2.7 Sodium 142 Potassium 2.9 L* Chloride 104.2 Carbon Dioxide 24 Anion Gap 17 BUN 8 Creatinine 0.7 Estimated GFR > 60 BUN/Creatinine Ratio 11 Glucose 74 Calcium 8.6 Total Bilirubin 0.60 AST 21 ALT 14 Alkaline Phosphatase 79 Total Protein 7.1 Albumin 3.7 L Albumin/Globulin Ratio 1.1 Lipase 15 HCG, Qual Urine Color [place] Urine Turbidity Cloudy Urine pH 6.0 Ur Specific [place] 1.029 Urine Protein >500 Urine Glucose (UA) Neg Urine Ketones 20 Urine Blood Mod Urine Nitrite Neg Urine Bilirubin Neg Urine Urobilinogen 2.0 Ur Leukocyte Esterase Tr Urine WBC (Auto) 15.0 H Urine RBC (Auto) 7.0 U Epithel Cells (Auto) 96.0 H Urine Mucus 3+ Salicylates Acetaminophen Plasma/Serum Alcohol 11/23/20 11/23/20 11/23/20 10:29 10:29 10:29 WBC RBC Hgb Hct MCV MCH MCHC RDW Plt Count Lymph % (Auto) Smith % (Auto) Eos % (Auto) Baso % (Auto) Lymph # (Auto) Smith # (Auto) Eos # (Auto) Baso # (Auto) Seg Neutrophils % Seg Neutrophils # Sodium Potassium Chloride Carbon Dioxide Anion Gap BUN Creatinine Estimated GFR BUN/Creatinine Ratio Glucose Calcium Total Bilirubin AST ALT Alkaline Phosphatase Total Protein Albumin Albumin/Globulin Ratio Lipase HCG, Qual Urine Color Urine Turbidity Urine pH Ur Specific [place] Urine Protein Urine Glucose (UA) Urine Ketones Urine Blood Urine Nitrite Urine Bilirubin Urine Urobilinogen Ur Leukocyte Esterase Urine WBC (Auto) Urine RBC (Auto) U Epithel Cells (Auto) Urine Mucus Salicylates < 0.3 L Acetaminophen 5.0 L Plasma/Serum Alcohol < 0.01 11/23/20 11/23/20 10:29 14:46 WBC RBC Hgb Hct MCV MCH MCHC RDW Plt Count Lymph % (Auto) Smith % (Auto) Eos % (Auto) Baso % (Auto) Lymph # (Auto) Smith # (Auto) Eos # (Auto) Baso # (Auto) Seg Neutrophils % Seg Neutrophils # Sodium Potassium 3.4 L Chloride Carbon Dioxide Anion Gap BUN Creatinine Estimated GFR BUN/Creatinine Ratio Glucose Calcium Total Bilirubin AST ALT Alkaline Phosphatase Total Protein Albumin Albumin/Globulin Ratio Lipase HCG, Qual Negative Urine Color Urine Turbidity Urine pH Ur Specific [place] Urine Protein Urine Glucose (UA) Urine Ketones Urine Blood Urine Nitrite Urine Bilirubin Urine Urobilinogen Ur Leukocyte Esterase Urine WBC (Auto) Urine RBC (Auto) U Epithel Cells (Auto) Urine Mucus Salicylates Acetaminophen Plasma/Serum Alcohol - Radiology Data Radiology results: report reviewed, image reviewed CT ABDOMEN AND PELVIS WITHOUT CONTRAST HISTORY: Abdominal pain COMPARISON: CT on 10/18/2019 TECHNIQUE: Routine abdominal and pelvic CT exam performed without contrast. Lack of intravenous contrast limits evaluation of the vascular and solid organs.. All CT scans at this location are performed using CT dose reduction for ALARA by means of automated exposure control. FINDINGS: CT ABDOMEN: Lung Bases: No significant abnormality. Liver: No significant abnormality. Biliary: Gallbladder is surgically absent. Spleen: No significant abnormality. Unenlarged. Pancreas: No significant abnormality. Adrenals: No significant abnormality. Kidneys: No significant abnormality. Lymphatics: No lymphadenopathy. Vasculature: No significant abnormality. Bowel/Peritoneum: No s ignificant abnormality. No free air. No free fluid. Normal appendix. CT PELVIC: : No significant abnormality. Lymphatics: No lymphadenopathy. Osseous Structures: No aggressive appearing osseous lesions. Additional Findings: None IMPRESSION: 1. No acute findings or findings to explain the patient's symptoms. Signer Name: Parag Villanueva MD Signed: 11/23/2020 9:11 AM Workstation Name: [id number] Transcribed By: DOMENIC Dictated By: Parag Villanueva MD Electronically Authenticated By: Parag Villanueva MD Signed Date/Time: 11/23/20 0911 - Medical Decision Making This 40-year-old female who initially presented with acute nausea vomiting turned into suicidal ideation with a plan. Patient was then assessed by mental health plastic extrusion operator who then placed a 1013 on patient due to assessment. Patient is stable currently awaiting transportation to psychiatric facility. Hypokalemia was corrected prior to discharge. Patient was in no acute distress and nausea vomiting resolved prior to leaving the ED. Critical care attestation.: If time is entered above; I have spent that time in minutes in the direct care of this critically ill patient, excluding procedure time. ED Disposition Clinical Impression: Hypokalemia, Acute depression, Suicidal ideation Disposition: DC/TX-65 PSY HOSP/PSY UNIT Is pt being admited?: No Does the pt Need Aspirin: No Condition: Stable Instructions: Abdominal Pain (ED) Referrals: PRIMARY CARE, [Primary Care Provider] - 3-5 Days
[2020-11-23] MEDS ORDERED: SODIUM CHLORIDE 0.9% 1000 ML 1,000 ML IV ONE (09:41)
[2020-11-23] MEDS ORDERED: METOCLOPRAMIDE 10 MG/2 ML INJ IV ONE (09:41)
[2020-11-23] MEDS ORDERED: KETOROLAC 30 MG/1 ML INJ IV ONE (09:41)
[2020-11-23] MEDS ORDERED: FAMOTIDINE 20 MG/2 ML INJ IV ONE (09:41)
[2020-11-23 10:06] LABS: Basophils % (Auto) 0.2 % (0.0-1.8); Eosinophils # (Auto) 0.1 K/mm3 (0.0-0.4); Eosinophils % (Auto) 1.5 % (0.0-4.3); Hematocrit 39.9 % (30.3-42.9); Hemoglobin 13.4 gm/dl (10.1-14.3); Lymphocytes # (Auto) 1.1 K/mm3 (1.2-5.4); Lymphocytes % (Auto) 25.1 % (13.4-35.0); Mean Corpuscular HGB Conc 34 % (30-34); Mean Corpuscular Volume 90 fl (79-97); Monocytes # (Auto) 0.4 K/mm3 (0.0-0.8); Monocytes % (Auto) 10.4 % (0.0-7.3); Platelet Count 213 K/mm3 (140-440); Red Blood Count 4.43 M/mm3 (3.65-5.03); Red Cell Distribution Width 16.5 % (13.2-15.2)
[2020-11-23] MEDS ORDERED: diphenhydrAMINE 50 MG/ML VIAL ONE (10:19)
[2020-11-23] MEDS ORDERED: LORazepam 2 MG/ML VIAL ONE (10:22)
[2020-11-23 10:28] LABS: Alanine Aminotransferase 14 units/L (7-56); Albumin 3.7 g/dL (3.9-5); Blood Urea Nitrogen 8 mg/dL (7-17); Calcium 8.6 mg/dL (8.4-10.2); Hemolysis Index 3
[2020-11-23] MEDS ORDERED: LORazepam 2 MG/ML VIAL IV ONE (10:28)
[2020-11-23] MEDS ORDERED: diphenhydrAMINE 50 MG/ML VIAL IV ONE (10:28)
--- NOTE | 2020-11-23 10:29 | Event Note ---
Patient had a panic attack. She became agitate and restless. She stated for the past week she felt "that I am losing my mind. If I go home, I do not know what I would do. I did not tell anybody because I did not want to seem crazy. I have 3 kids." Family history includes mental health disorder. I ordered benadryl and ativan for sedation. She has mild stomach burning. However, she keeps repeating, "I need help. I really do." I have requested mental health evaluation.
[2020-11-23 10:30] LABS: BUN/Creatinine Ratio 11
[2020-11-23] MEDS ORDERED: POTASSIUM CHLORIDE ER 20 MEQ TAB PO ONE ×3 (10:37→15:30)
[2020-11-23 13:02] VITALS: BP 136/85
== END 2020-11-23 18:41 ==
LOC: ED 07:34
DX: R45.851 Suicidal ideations (principal); F32.9 Major depressive disorder, single episode, unspecified; E87.6 Hypokalemia; Z90.49 Acquired absence of other specified parts of digestive tract; Z98.890 Other specified postprocedural states; Z79.1 Long term (current) use of non-steroidal anti-inflammatories (NSAID); Z79.899 Other long term (current) drug therapy; Z88.8 Allergy status to other drugs, medicaments and biological substances
CPT/HCPCS: 36415; 74176; 80053; 81001; 83690; 84132; 84703; 85025; 87086; 96361; 96374; 96375; 99285; J1200; J1885; J2060; J2765; J7030; 80320; G0480

== ENCOUNTER 2022-03-23 07:41 | Emergency (ER) | payer OTHER ==
[2022-03-23 11:22] LABS: Basophils # (Auto) 0.1 K/mm3 (0.0-0.1); Basophils % (Auto) 0.9 % (0.0-1.8); Eosinophils # (Auto) 0.3 K/mm3 (0.0-0.4); Eosinophils % (Auto) 5.2 % (0.0-4.3); Hematocrit 38.4 % (30.3-42.9); Hemoglobin 13.1 gm/dl (10.1-14.3); Lymphocytes % (Auto) 30.3 % (13.4-35.0); Mean Corpuscular HGB Conc 34 % (30-34); Mean Corpuscular Volume 88 fl (79-97); Monocytes # (Auto) 0.3 K/mm3 (0.0-0.8); Monocytes % (Auto) 5.3 % (0.0-7.3); Platelet Count 249 K/mm3 (140-440); Red Blood Count 4.35 M/mm3 (3.65-5.03); Red Cell Distribution Width 16.1 % (13.2-15.2)
--- NOTE | 2022-03-23 11:22 | XRay Report ---
CHEST 2 VIEWS INDICATION / CLINICAL INFORMATION: Upper Respiratory Infection. COMPARISON: 12/11/2020 FINDINGS: SUPPORT DEVICES: None. HEART / MEDIASTINUM: No significant abnormality. LUNGS / PLEURA: No significant pulmonary or pleural abnormality. No pneumothorax. ADDITIONAL FINDINGS: No significant additional findings. IMPRESSION: 1. No acute findings. Signer Name: Sp Whittington MD Signed: 03/23/2022 11:17 AM Workstation Name: [id number]
[2022-03-23 11:40] LABS: Blood Urea Nitrogen 12 mg/dL (7-17); Calcium 9.2 mg/dL (8.4-10.2); Hemolysis Index 13
[2022-03-23 11:44] LABS: BUN/Creatinine Ratio 17
--- NOTE | 2022-03-23 16:12 | Emergency Department Report ---
- General Chief Complaint: Upper Respiratory Infection Stated Complaint: CHEST PAIN/HAVING TROUBLE BREATHING Time Seen by Provider: 03/23/22 15:57 Source: patient Mode of arrival: Ambulatory Limitations: No Limitations - History of Present Illness Initial Comments: Patient is a 41-year-old female presented ED with complaint of URI symptoms, chest congestion and difficulty breathing over the past 2 weeks. She also reports associated sinus congestion. Denies fever or chills. She does not smoke. - Related Data Home Medications Medication Instructions Recorded Confirmed Last Taken ARIPiprazole [Abilify TAB] 10 mg PO DAILY 12/11/20 12/11/20 Unknown Famotidine [Pepcid] 20 mg PO QDAY 12/11/20 12/11/20 Unknown Mirtazapine [Remeron 15mg TAB] 15 mg PO QHS 12/11/20 12/11/20 Unknown Previous Rx's Medication Instructions Recorded Last Taken Type Ibuprofen [Motrin 800 MG tab] 800 mg PO TID PRN #30 tablet 03/05/20 Unknown Rx oxyCODONE /ACETAMINOPHEN [Percocet 1 - 2 tab PO Q6HR PRN #10 tablet 03/05/20 Unknown Rx 5/325 mg] Dicyclomine [Bentyl] 20 mg PO TID PRN #30 tablet 11/16/20 Unknown Rx Famotidine [Pepcid] 20 mg PO BID #30 tablet 11/16/20 Unknown Rx Ondansetron [Zofran Odt] 4 mg PO Q8HR PRN #15 tab.rapdis 11/16/20 Unknown Rx Sulfamethoxazole/Trimethoprim 1 each PO BID #14 tablet 11/16/20 Unknown Rx [Bactrim DS TAB] Aspirin EC [Halfprin EC] 81 mg PO QDAY #30 tablet. 12/12/20 Unknown Rx AtorvaSTATin [Lipitor] 20 mg PO QHS #30 tab 12/12/20 Unknown Rx Escitalopram Oxalate [Lexapro] 5 mg PO QDAY #30 tablet 12/12/20 Unknown Rx Nitrofurantoin Kent/M-Cryst 100 mg PO Q12HR #20 capsule 12/14/20 Unknown Rx [Macrobid CAP] Phenazopyridine [Pyridium] 200 mg PO TID #9 tab 12/14/20 Unknown Rx Ketorolac [Toradol] 10 mg PO Q6H PRN #20 tablet 07/13/21 Unknown Rx methOCARBAMOL [Robaxin TAB] 500 mg PO BID #10 tab 07/13/21 Unknown Rx predniSONE [Deltasone] 40 mg PO QDAY #10 tab 07/13/21 Unknown Rx Fexofenadine/Pseudoephedrine 1 each PO DAILY #7 03/23/22 Unknown Rx [Monica-D 24 Hour Tablet] predniSONE [Deltasone] 40 mg PO QDAY #10 03/23/22 Unknown Rx Allergies Allergy/AdvReac Type Severity Reaction Status Date / Time metoclopramide [From Reglan] Allergy Unknown Verified 03/23/22 07:59 promethazine [From Phenergan] Allergy Unknown Verified 03/23/22 07:59 promethazine HCl Allergy Vomiting Verified 03/23/22 07:59 [From Phenergan] ED Review of Systems ROS: Stated complaint: CHEST PAIN/HAVING TROUBLE BREATHING Other details as noted in HPI Constitutional: denies: chills, fever ENT: congestion Respiratory: shortness of breath Cardiovascular: chest pain Gastrointestinal: denies: abdominal pain, nausea, diarrhea Musculoskeletal: denies: back pain, joint swelling, arthralgia Skin: denies: rash, lesions Neurological: denies: headache, weakness, paresthesias Psychiatric: denies: anxiety, depression ED Past Medical Hx - Past Medical History Hx Hypertension: No Hx Heart Attack/AMI: No Hx Congestive Heart Failure: No Hx Diabetes: No Hx Deep Vein Thrombosis: No Hx Liver Disease: No Hx Renal Disease: No Hx Sickle Cell Disease: No Hx Seizures: No Hx Psychiatric Treatment: Yes (Anxiety) Hx Asthma: No Hx COPD: No Hx HIV: No Additional medical history: Gallbladder disease - Surgical History Hx Pacemaker: No Hx Internal Defibrillator: No Hx Cholecystectomy: Yes Additional Surgical History: Polycystic cyst, Uterine fibroid, tubiligation - Social History Smoking Status: Never Smoker Substance Use Type: None - Medications Home Medications: Home Medications Medication Instructions Recorded Confirmed Last Taken Type Ibuprofen [Motrin 800 MG tab] 800 mg PO TID PRN #30 tablet 03/05/20 Unknown Rx oxyCODONE /ACETAMINOPHEN [Percocet 1 - 2 tab PO Q6HR PRN #10 tablet 03/05/20 Unknown Rx 5/325 mg] Dicyclomine [Bentyl] 20 mg PO TID PRN #30 tablet 11/16/20 Unknown Rx Famotidine [Pepcid] 20 mg PO BID #30 tablet 11/16/20 Unknown Rx Ondansetron [Zofran Odt] 4 mg PO Q8HR PRN #15 tab.rapdis 11/16/20 Unknown Rx Sulfamethoxazole/Trimethoprim 1 each PO BID #14 tablet 11/16/20 Unknown Rx [Bactrim DS TAB] ARIPiprazole [Abilify TAB] 10 mg PO DAILY 12/11/20 12/11/20 Unknown History Famotidine [Pepcid] 20 mg PO QDAY 12/11/20 12/11/20 Unknown History Mirtazapine [Remeron 15mg TAB] 15 mg PO QHS 12/11/20 12/11/20 Unknown History Aspirin EC [Halfprin EC] 81 mg PO QDAY #30 tablet.dr 12/12/20 Unknown Rx AtorvaSTATin [Lipitor] 20 mg PO QHS #30 tab 12/12/20 Unknown Rx Escitalopram Oxalate [Lexapro] 5 mg PO QDAY #30 tablet 12/12/20 Unknown Rx Nitrofurantoin [place]/M-Cryst 100 mg PO Q12HR #20 capsule 12/14/20 Unknown Rx [Macrobid CAP] Phenazopyridine [Pyridium] 200 mg PO TID #9 tab 12/14/20 Unknown Rx Ketorolac [Toradol] 10 mg PO Q6H PRN #20 tablet 07/13/21 Unknown Rx methOCARBAMOL [Robaxin TAB] 500 mg PO BID #10 tab 07/13/21 Unknown Rx predniSONE [Deltasone] 40 mg PO QDAY #10 tab 07/13/21 Unknown Rx Fexofenadine/Pseudoephedrine 1 each PO DAILY #7 03/23/22 Unknown Rx [Monica-D 24 Hour Tablet] predniSONE [Deltasone] 40 mg PO QDAY #10 03/23/22 Unknown Rx ED Physical Exam - General Limitations: No Limitations General appearance: alert, in no apparent distress - Head Head exam: Present: atraumatic, normocephalic - Respiratory Respiratory exam: Present: normal lung sounds bilaterally. Absent: respiratory distress, chest wall tenderness - Cardiovascular Cardiovascular Exam: Present: regular rate, normal rhythm, normal heart sounds - GI/Abdominal GI/Abdominal exam: Present: soft. Absent: distended, tenderness - Rectal Rectal exam: Present: deferred - Neurological Exam Neurological exam: Present: alert, oriented X3 - Psychiatric Psychiatric exam: Present: normal affect, normal mood - Skin Skin exam: Present: warm, dry, intact, normal color ED Course Vital Signs 03/23/22 07:55 Temperature 98.3 F Pulse Rate 84 Respiratory 18 Rate Blood Pressure 122/88 [Left] O2 Sat by Pulse 100 Oximetry ED Medical Decision Making - Lab Data Result diagrams: 03/23/22 11:06 03/23/22 11:06 - EKG Data -: EKG Interpreted by Sc EKG shows normal: sinus rhythm, axis, intervals, QRS complexes, ST-T waves Rate: normal - EKG Data Interpretation: normal EKG - Radiology Data Radiology results: report reviewed No acute findings on chest x-ray. - Medical Decision Making EKG, chest x-ray, CMP, troponin and CBC are all unremarkable. History suggestive of URI versus allergy. Patient states she has been taking OTC cough/cold meds with no improvement. Will place on short course of steroids along with antihistamine. Stable discharge with PCP follow-up as needed. Critical care attestation.: If time is entered above; I have spent that time in minutes in the direct care o f this critically ill patient, excluding procedure time. ED Disposition Clinical Impression: Sinus congestion, Chest congestion, Nonspecific chest pain, Dyspnea Disposition: 01 HOME / SELF CARE / HOMELESS Is pt being admited?: No Condition: Stable Instructions: Nonspecific Chest Pain, Adult, Viral Respiratory Infection, [id number], Shortness of Breath, Adult Additional Instructions: Please follow-up with your regular doctor as needed. You may return if your symptoms worsen. Time of Disposition: 16:15
[2022-03-23 16:33] VITALS: BP 119/85
--- NOTE | 2022-03-24 09:23 | Electrocardiograph Report ---
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
== END 2022-03-23 16:32 | disposition home or self-care (01) ==
LOC: ED 07:41
DX: R09.81 Nasal congestion (principal); R07.9 Chest pain, unspecified; R06.00 Dyspnea, unspecified; F41.9 Anxiety disorder, unspecified; Z90.49 Acquired absence of other specified parts of digestive tract; Z91.09 Other allergy status, other than to drugs and biological substances
CPT/HCPCS: 36415; 71046; 80048; 84484; 85025; 93005; 99283